=== PATIENT | male | born 1950 | race Caucasian/White ===

== ENCOUNTER 2025-10-12 10:54 | Observation (INO) | payer MEDICARE, SELFPAY ==
[2025-10-12] VITALS (7 sets, daily range): BP systolic 115–167; BP diastolic 60–94; PULSE 57–107; RESP 16–28; TEMP 34.2–36.8; O2SAT 93–100
--- NOTE | ~2025-10-12 | XR_ITS ---
Examination: XR chest 1V portable Clinical History: Altered mental status Comparison: None Technique: Portable AP Findings: Heart size enlarged. Lungs clear. No acute bony abnormality. IMPRESSION: 1. No definite acute cardiopulmonary findings given portable technique. Reviewed, dictated and finalized at location R. RDS MANAGER
--- NOTE | ~2025-10-12 | CT_ITS ---
EXAMINATION: CT chest, abdomen and pelvis with contrast: DATE: 10/12/2025. INDICATION: 4-year-old male with sepsis. TECHNIQUE: CT performed 100 cc of contrast and reviewed in multiple projections. COMPARISON: Chest x-ray dated 10/12/2025. FINDINGS: Postoperative changes of thoracotomy with coronary bypass. Cardiomegaly. Mild vascular congestion of lungs with patchy airspace opacity of left lung base. No pericardial effusion. Below the diaphragm, no focal lesions of liver and spleen. Gallbladder, pancreas and kidneys do not show acute findings. No evidence of small bowel obstruction. Normal size appendix. Diverticulosis of distal colon. No CT evidence of acute diverticulitis. Fecal impaction of the rectum. Severe calcific changes of abdominal aorta and iliac arteries, superior mesenteric artery and renal arteries. No acute findings of lumbar spine and pelvic bones. IMPRESSION: 1. Cardiomegaly with postoperative changes of coronary bypass. Mild congestion of lung bases with minimal bilateral pleural effusion. Small patchy airspace opacity of left lower lobe noted. Possible patchy of pneumonia versus pulmonary edema. 2. Below the diaphragm, no definite acute findings in the abdomen and pelvis. Other findings as mentioned above including severe calcific changes of abdominal aorta, iliac arteries and superior mesenteric and renal arteries. Reviewed, dictated and finalized at location T. TRONICS ASSEMBLER IMPRESSION: 1. Cardiomegaly with postoperative changes of coronary bypass. Mild congestion of lung bases with minimal bilateral pleural effusion. Small patchy airspace op acity of left lower lobe noted. Possible patchy of pneumonia versus pulmonary e jeffy. 2. Below the diaphragm, no definite acute findings in the abdomen and pelvis. O ther findings as mentioned above including severe calcific changes of abdominal aorta, iliac arteries and superior mesenteric and renal arteries.
--- NOTE | ~2025-10-12 | CT_ITS ---
CT HEAD NON-CONTRAST CT C-SPINE Clinical History: Fall Comparison: None Technique: Unenhanced axial images skull base to vertex. Coronal, sagittal reformats. Axial images thoracic inlet to skull base. Sagittal and coronal reformats. CT images acquired with automatic exposure control for dose reduction DLP: 681 mGy-cm Findings: Head: Age-related atrophy. Left parietal encephalomalacia. Right occipital encephalomalacia. Chronic white matter microvascular ischemic changes. Sulci, ventricles: Unremarkable. No intracerebral hemorrhage. No evidence acute territorial infarct. No mass effect, midline shift, intra-/extra-axial fluid collection. Bony calvarium intact. Visualized paranasal sinuses: Clear. Mastoid air cells: Clear. Posterior scalp contusion. C-spine: No acute fracture or listhesis. Straightening of normal cervical lordosis. Moderate degenerative changes. Disc disease C5-7. Prevertebral soft tissues within normal limits. Visualized lung apices: Clear. Visualized thyroid: Unremarkable. No enlarged cervical nodes. IMPRESSION: HEAD: 1. No acute intracranial findings. C-SPINE: 1. No acute fracture. Reviewed, dictated and finalized at location R. Y BUS DRIVER IMPRESSION: HEAD: 1. No acute intracranial findings. C-SPINE: 1. No acute fracture.
--- NOTE | 2025-10-12 11:19 | ED.AMS ---
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 PATIENT'S ROOMMATE TELLING ME THAT PATIENT WENT TO THE BAR LAST NIGHT, HAD QUITE A BIT OF ALCOHOL, AND CAME BACK HOME STUMBLING ALL OVER THE PLACE, UNSTEADY, MOM PLAYING, FOUND HIM ON THE FLOOR NEXT TO BED PROBABLY HE HAD A FALL OR HE TRY TO GET OUT OF BED AND WAS NOT ABLE TO WALK. AWAKE, DISORIENTED X4. 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 SHE IS TELLING ME THAT PATIENT HAVE HISTORY OF DIABETES HYPERTENSION HYPERLIPIDEMIA CABG FOR CORONARY STENTS ATRIAL FIBRILLATION ON ELIQUIS AND HE IS DNR. Related Data Allergies Allergy/AdvReac Type Severity Reaction Status Date / Time No Known Allergies Allergy Verified 10/12/25 16:49 Review of Systems Review of Systems: ROS unobtainable: Yes unobtainable due to medical condition and unobtainable due to mental status Exam Narrative: GENERAL APPEARANCE: WELL-DEVELOPED, WELL-NOURISHED DOES NOT LOOK IN PAIN OR DISTRESS SKIN: NORMAL COLOR HEAD: NORMOCEPHALIC, NONTRAUMATIC EYES: CLEAR CONJUNCTIVA ENT: OROPHARYNX NORMAL, EARS NORMAL, NOSE NORMAL NECK: SUPPLE, NONTENDER CHEST AND RESPIRATORY: AIRWAY PATENT, NO RESPIRATORY DISTRESS, NO ACCESSORY MUSCLE USE HEART: REGULAR RATE/RHYTHM ABDOMEN: SOFT, NONTENDER, NO ORGANOMEGALY, QUIET BOWEL SOUNDS VASCULAR: NORMAL PERIPHERAL PULSES, NORMAL CAPILLARY REFILL. MUSCULOSKELETAL: NORMAL RANGE OF MOTION, NONTENDER BACK NEUROLOGIC: ALERT, DISORIENTED X4 Course Vital Signs Vital signs: Vital Signs Temperature 34.2 C L 10/12/25 11:02 Pulse Rate 104 H 10/12/25 11:02 Respiratory Rate 19 10/12/25 11:02 Blood Pressure 167/94 H 10/12/25 11:02 Pulse Oximetry 95 10/12/25 11:02 Oxygen Delivery Room Air 10/12/25 11:02 Temperature 36.4 C L 10/12/25 15:40 Pulse Rate 85 10/12/25 15:40 Respiratory Rate 16 10/12/25 15:40 Blood Pressure 134/62 12/20/25 15:40 Pulse Oximetry 98 10/12/25 15:40 Oxygen Delivery Room Air 10/12/25 11:02 [facility] Narrative Medical decision making narrative: PATIENT CAME WITH ACUTE ALTERED MENTAL STATUS VITAL SIGNS SHOWING BLOOD PRESSURE 167/94, HEART RATE 104, TEMPERATURE 34.2? PHYSICAL EXAMINATION SHOWING PATIENT AWAKE, DISORIENTED X4, LETHARGIC. DIFFERENTIAL DIAGNOSIS: CVA, ELECTROLYTE IMBALANCE, DEHYDRATION, SEPSIS, ALCOHOLISM, SUBSTANCE ABUSE, ELECTROLYTE IMBALANCE, DEHYDRATION, CORONARY ARTERY DISEASE, PNEUMONIA, METABOLIC ENCEPHALOPATHY BLOOD WORKUP TODAY INCLUDES CBC, CMP, BLOOD CULTURE, COAGS, TROPONIN, LACTIC ACID SHOWED WBC 14.2, ANION GAP 18, BUN 30, LACTIC ACID 2.7, MAGNESIUM 1.3, OTHERWISE WITHIN NORMAL LIMIT URINALYSIS SHOWED NO EVIDENCE OF INFECTION URINE DRUG SCREEN NEGATIVE ALCOHOL LEVEL LESS THAN 10 IN THE ED PATIENT RECEIVED 1 L OF NORMAL SALINE, LEVAQUIN AND ZOSYN FOR POSSIBLE SEPSIS CHEST X-RAY SHOWED NO ACUTE ABNORMALITIES CT HEAD AND CT CERVICAL SPINE WITHOUT CONTRAST SHOWED NO ACUTE ABNORMALITIES CT CHEST ABDOMEN AND PELVIS WITH IV CONTRAST SHOWED POSSIBLE PNEUMONIA VERSUS PULMONARY EDEMA. Differential Diagnosis Differential Diagnosis: ABOVE Lab Data 10/12/25 11:27 10/12/25 11:27 Labs: Lab Results 10/12/25 10/12/25 10/12/25 Range/Units 11:00 11: 12:25 WBC 14.2 H (4.5-10.0) K/mm3 RBC 4.96 (4.6-6.20) M/mm3 Hgb 15.7 (14.0-18.0) g/dL Hct 46.7 (42.0-52.0) % MCV 94.2 (80-100) fl MCH 31.7 (26-34) pg MCHC 33.6 (32-36) g/dl RDW 12.3 (11.5-14.5) % Plt Count 268 (150-375) k/mm3 MPV 10.3 (7.4-10.4) fl Immature Gran % (Auto) 0.4 (0-0.5) % Neut % (Auto) 90.0 H (45.5-73.1) % Lymph % (Auto) 5.1 L (18.3-44.2) % [place] % (Auto) 4.4 (2.6-8.5) % Eos % (Auto) 0.0 (0-4.4) % Baso % (Auto) 0.1 L (0.2-1.2) % Lymph # (Auto) 0.73 L (0.9-3.2) K/mm3 [place] # (Auto) 0.6 (0.1-0.6) K/mm3 Eos # (Auto) 0.0 (0-0.3) K/mm3 Baso # (Auto) 0.0 (0.0-0.1) K/mm3 Abs Immat Gran (auto) 0.06 H (0.00-0.031) K/mm3 Absolute Neuts (auto) 12.8 H (1.3-6.7) K/mm3 Absolute Nucleated RBC 0.000 (0.0-0.012) K/mm3 Nucleated RBC % 0.0 (0.0-0.2) % PT 14.1 (11.1-14.7) Seconds INR 1.1 APTT 31.3 (22.3-36.8) Seconds Sodium 136 L (137-145) mmol/L Potassium 4.7 (3.4-5.0) mmol/L Chloride 97 L (98-107) mmol/L Carbon Dioxide 21 L (22-30) mmol/L Anion Gap 18 H (4-12) mmol/L BUN 30 H (9-20) mg/dL Creatinine 0.94 (0.7-1.3) mg/dL Estim Creat Clear Calc Not Reportable Estimated GFR > 60 (59 - ) Glucose 102 (65-110) mg/dL POC Capillary Glucose 96 (65-105) mg/dl Lactic Acid 2.7 H (0.7-2.0) mmol/L Calcium 9.3 (8.4-10.2) mg/dL Magnesium 1.3 L (1.6-2.3) mg/dL Total Bilirubin 0.7 (0.2-1.3) mg/dL AST 59 (17-59) U/L ALT 34 (6-50) U/L Alkaline Phosphatase 28 L (38-126) U/L Ammonia (9-30) umol/L C-Reactive Protein < 0.5 (<1.0) mg/dL Total Protein 7.8 (6.3-8.2) g/dL Albumin 4.7 (3.5-5.1) g/dL Urine Color Yellow (Yellow) Urine Appearance Clear (Clear) Urine pH 5.0 (5.0-9.0) Ur Specific [place] 1.014 (1.001-1.035) Urine Protein 2+ H (Negative) mg/dL Urine Glucose (UA) Negative (Negative) mg/dL Urine Ketones 1+ H (Negative) mg/dL Ur Blood (Man) Trace (Negative) Urine Nitrate Negative (Negative) Urine Bilirubin Negative (Negative) Urine Urobilinogen 0.2 (<2.0) mg/dL Add Ur Microanalysis Reviewed Leukocyte Esterase Rfl Negative (Negative) LINDSEY/UL Urine RBC 0-2 (0-2) /hpf Urine WBC 0-5 (0-3) /hpf Ur Squamous Epith Cells None seen (Few) /hpf Urine Bacteria None seen /hpf Urine Casts 6-10 Hyaline Casts Present (None) /lpf Urine Opiates Screen Negative (Negative) Urine Methadone Screen Negative (Negative) Ur Barbiturates Screen Negative (Negative) Ur Phencyclidine Scrn Negative (Negative) Ur Amphetamine Screen Negative (Negative) U Benzodiazepines Scrn Negative (Negative) Urine Cocaine Screen Negative (Negative) U Cannabinoids Screen Negative (Negative) Ethyl Alcohol < 10 (<10) mg/dL 10/12/25 10/12/25 Range/Units 12:33 14:42 WBC (4.5-10.0) K/mm3 RBC (4.6-6.20) M/mm3 Hgb (14.0-18.0) g/dL Hct (42.0-52.0) % MCV (80-100) fl MCH (26-34) pg MCHC (32-36) g/dl RDW (11.5-14.5) % Plt Count (150-375) k/mm3 MPV (7.4-10.4) fl Immature Gran % (Auto) (0-0.5) % Neut % (Auto) (45.5-73.1) % Lymph % (Auto) (18.3-44.2) % [place] % (Auto) (2.6-8.5) % Eos % (Auto) (0-4.4) % Baso % (Auto) (0.2-1.2) % Lymph # (Auto) (0.9-3.2) K/mm3 [place] # (Auto) (0.1-0.6) K/mm3 Eos # (Auto) (0-0.3) K/mm3 Baso # (Auto) (0.0-0.1) K/mm3 Abs Immat Gran (auto) (0.00-0.031) K/mm3 Absolute Neuts (auto) (1.3-6.7) K/mm3 Absolute Nucleated RBC (0.0-0.012) K/mm3 Nucleated RBC % (0.0-0.2) % PT (11.1-14.7) Seconds INR APTT (22.3-36.8) Seconds Sodium (137-145) mmol/L Potassium (3.4-5.0) mmol/L Chloride (98-107) mmol/L Carbon Dioxide (22-30) mmol/L Anion Gap (4-12) mmol/L BUN (9-20) mg/dL Creatinine (0.7-1.3) mg/dL Estim Creat Clear Calc Estimated GFR (59 - ) Glucose (65-110) mg/dL POC Capillary Glucose 116 H (65-105) mg/dl Lactic Acid (0.7-2.0) mmol/L Calcium (8.4-10.2) mg/dL Magnesium (1.6-2.3) mg/dL Total Bilirubin (0.2-1.3) mg/dL AST (17-59) U/L ALT (6-50) U/L Alkaline Phosphatase (38-126) U/L Ammonia < 9 L (9-30) umol/L C-Reactive Protein (<1.0) mg/dL Total Protein (6.3-8.2) g/dL Albumin (3.5-5.1) g/dL Urine Color (Yellow) Urine Appearance (Clear) Urine pH (5.0-9.0) Ur Specific [place] (1.001-1.035) Urine Protein (Negative) mg/dL Urine Glucose (UA) (Negative) mg/dL Urine Ketones (Negative) mg/dL Ur Blood (Man) (Negative) Urine Nitrate (Negative) Urine Bilirubin (Negative) Urine Urobilinogen (<2.0) mg/dL Add Ur Microanalysis Leukocyte Esterase Rfl (Negative) LINDSEY/UL Urine RBC (0-2) /hpf Urine WBC (0-3) /hpf Ur Squamous Epith Cells (Few) /hpf Urine Bacteria /hpf Urine Casts Hyaline Casts (None) /lpf Urine Opiates Screen (Negative) Urine Methadone Screen (Negative) Ur Barbiturates Screen (Negative) Ur Phencyclidine Scrn (Negative) Ur Amphetamine Screen (Negative) U Benzodiazepines Scrn (Negative) Urine Cocaine Screen (Negative) U Cannabinoids Screen (Negative) Ethyl Alcohol (<10) mg/dL ABG Data ABG results: 10/12/25 13:40 Puncture Site Left radial ABG pH 7.346 L ABG pCO2 29.0 L ABG pO2 90.5 ABG PO2/FiO2 Ratio 4.31 ABG HCO3 15.5 L ABG O2 Saturation 96.7 ABG O2 Content 19.5 ABG Base Excess -8.6 A-a Gradient 24.5 Oxyhemoglobin 95.4 Total Hemoglobin 14.5 O2 Delivery Device Room air O2 Liters/Min 0.0 FiO2 21 Imaging Data Radiologist's impression: ITS Impressions Cervical Spine CT 10/12/25 11:42 IMPRESSION: HEAD: 1. No acute intracranial findings. C-SPINE: 1. No acute fracture. Head CT 10/12/25 11:42 IMPRESSION: HEAD: 1. No acute intracranial findings. C-SPINE: 1. No acute fracture. Chest X-Ray 10/12/25 12:05 IMPRESSION: 1. No definite acute cardiopulmonary findings given portable technique. Chest/Abdomen/Pelvis CT 10/12/25 15:22 IMPRESSION: 1. Cardiomegaly with postoperative changes of coronary bypass. Mild congestion of lung bases with minimal bilateral pleural effusion. Small patchy airspace opacity of left lower lobe noted. Possible patchy of pneumonia versus pulmonary edema. 2. Below the diaphragm, no definite acute findings in the abdomen and pelvis. Other findings as mentioned above including severe calcific changes of abdominal aorta, iliac arteries and superior mesenteric and renal arteries. ECG Data EKG #1: Attestation: I personally reviewed and interpreted this ECG as follows: ECG completion date: 10/12/25 Interpretation: ATRIAL FIBRILLATION WITH RVR AT 101 BEATS PER MINUTE, RIGHT BUNDLE-BRANCH BLOCK, LEFT ANTERIOR FASCICULAR BLOCK, NO PREVIOUS EKG AVAILABLE FOR COMPARISON Critical Care Time Critical Care Time Critical Care Time: Yes Time Type: Intermittent Initial evaluation, discuss w/ involved parties, attempting to gather old records: 10 minutes Documenting medical record: 5 minutes Review of results (EKG's, labs, imaging): 5 minutes Serial repeat bedside evaluation: 10 minutes Discussing case with multiple memebers of the care team and consultants: 5 minutes Total Critical Care Time: 35 Discharge Plan Discharge Clinical Impression: Altered mental status, Pneumonia, Family history of atrial fibrillation Patient Disposition: Still a Patient Condition: Improved Patient Language: Romanian Follow-up/Referrals: Mihai,Chetan Turner MD [Primary Care Provider]
--- NOTE | 2025-10-12 11:20 | ECG_ITS ---
Test Date: 2025-10-12 12:23:35 Measurements Intervals [place] Rate: 101 P: 0 LA: 0 QRS: -85 QRSD: 149 T: 74 QT: 390 QTc: 506 Interpretive Statements ATRIAL FIBRILLATION WITH RAPID VENTRICULAR RESPONSE RIGHT BUNDLE BRANCH BLOCK LEFT ANTERIOR FASCICULAR BLOCK BASELINE ARTIFACT- I, II, III, AVL, V2, V4 ABNORMAL ECG No previous ECG available for comparison Electronically Signed On 10-12-2025 17:32:33 [employer] by Donnell Yoo D.O.
[2025-10-12] MEDS: SODIUM CHLORIDE 0.9% IV 1,000 ML 999 ML IV CONT (11:30)
--- NOTE | 2025-10-12 11:30 | PC.NURSE ---
Dr. Garg notified of critical pt.
[2025-10-12 11:37] LABS: Hematocrit 46.7 % (42.0-52.0); Hemoglobin 15.7 g/dL (14.0-18.0); Immature Granulocyte Percent A 0.4 % (0-0.5); Lymphocytes Absolute Auto 0.73 K/mm3 (0.9-3.2); Mean Corpuscular HGB Conc 33.6 g/dl (32-36); Mean Corpuscular Hemoglobin 31.7 pg (26-34); Mean Corpuscular Volume 94.2 fl (80-100); Nucleated Red Blood Cells Absolute Auto 0.000 K/mm3 (0.0-0.012); Nucleated Red Blood Cells Perc 0.0 % (0.0-0.2); Platelet Count Result 268 k/mm3 (150-375); Red Blood Count 4.96 M/mm3 (4.6-6.20); White Blood Count 14.2 K/mm3 (4.5-10.0)
--- NOTE | 2025-10-12 11:40 | PC.NURSE ---
Pt. taken to CT on a monitor with this RN at bedside. Pt. continues to be combative and confused. Breathing equal and unlabored.
[2025-10-12 11:48] LABS: INR 1.1; Prothrombin Time 14.1 Seconds (11.1-14.7)
[2025-10-12 11:49] LABS: Add Urine Microscopic? YES; Appearance Urine Clear (Clear); Glucose Urine UA Negative (Negative); Leukocyte Esterase Ur Negative LEU/UL (Negative); Need Manual Microscopic Reviewed; Nitrate Urine Negative (Negative); Partial Thromboplastin Time 31.3 Seconds (22.3-36.8); Specific Grav Ur 1.014 (1.001-1.035)
--- NOTE | 2025-10-12 11:50 | PC.NURSE ---
Pt. had BM in bed. Pt. cleaned with soap and water. Linen changed. Depend applied.
--- NOTE | 2025-10-12 12:00 | PC.NURSE ---
Claribel hugger placed on pt. at time of pt. arrival. Pt. not tolerating Claribel hugging and repeatedly pulled it off. Pt not redirecteable. Pt. tolerating warm blankets. Fluid bolus placed on warmer.
[2025-10-12 12:04] LABS: Alanine Aminotransferase 34 U/L (6-50); Albumin Level 4.7 g/dL (3.5-5.1); Alkaline Phosphatase 28 U/L (38-126); Anion Gap 18 mmol/L (4-12); Aspartate Amino Transferase 59 U/L (17-59); Bilirubin,Total 0.7 mg/dL (0.2-1.3); Blood Urea Nitrogen 30 mg/dL (9-20); CRP < 0.5 mg/dL (<1.0); Calcium 9.3 mg/dL (8.4-10.2); Carbon Dioxide 21 mmol/L (22-30); Chloride 97 mmol/L (98-107); Estimated Glomerular Filt Rate > 60; Glucose 102 mg/dL (65-110); Potassium 4.7 mmol/L (3.4-5.0); Sodium 136 mmol/L (137-145); Total Protein 7.8 g/dL (6.3-8.2)
--- OUTSIDE RECORDS SUMMARY | 2025-10-12 12:15 | XMS_ITS | Clinical Summary ---
Author Organization [facility] Address [address] [place] [address] Care Team Providers Care Produce Department Manager Name Role Phone Unavailable Primary Care Provider Unavailabl e Source Comments [facility],non-owned Affiliates and Associated Physician Practices is amultiple site organization consisting of ambulatory clinics and hospital sitesin [place], [place]. This disclosure is being madepursuant to the Care Everywhere program and may not contain all information available regarding this patient. 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 Gender Identity Not on file Sexual Orientation Not on file Plan of Treatment Health Maintenance Due Date Last Done Comments COLOGUARD (AGES 45-75) - COL ON CA SCREENING 1949 COLON MONITORING 1949 COLONOSCOPY - COLON CA SCREENING 1949 CT COLONOGRAPHY - COLON CA SCREENING 1949 Colorectal Cancer Screening 1949 FIT - COLON CA SCREENING 1949 FLEX SIG - COLON CA SCREENING 1949 LIPID TESTING 1949 HEPATITIS C SCREENING 10/19/1967 DTAP/TDAP/TD VACCINES (1 - Tdap) 1968 PNEUMOCOCCAL VACCINE 50+ (1 of 1 - PCV) 1999 ZOSTER VACCINE (1 of 2) 1999 Respiratory Syncytial Virus (RSV) Vaccine Pt: or over 60 yrs (1 - 1-dose 75+ series) 2024 DEPRESSION SCREENING 10/24/2024 COVID-19 VACCINE (1 - 2024-2 6 season) 2025 INFLUENZA VACCINE (#1) 2025 HEPATITIS B VACCINE Aged Out No longe r eligible based on patient's age to complete this topic HIB VACCINE Aged Out No longer eligi ble based on patient's age to complete this topic HPV VACCINE Aged Out No longer eligi ble based on patient's age to complete this topic MENINGOCOCCAL (Group B) VACC INE SHARED DECISION-MAKING Aged Out No longer eligibl e based on patient's age to complete this topic MENINGOCOCCAL GROUPS A/C/Y/W VACCINE Aged Out No longer eligible b ased on patient's age to complete this topic
--- OUTSIDE RECORDS SUMMARY | 2025-10-12 12:15 | XMS_ITS | Data Portability ---
Author Organization [place] - [facility] [employer], Main Office Address [address] [place] [address] Care Team Providers Care Talkback Host Name Role Phone MARILUZ AGUERO Primary Care Provider MADAN MCKEON Neurologist ERLINDA OHARA Printer Floor Covering Assistant INO WESTON Therapeutic Specialist Assessment Encounter Date Assessment Date Assessment LastModified by Organization Details LastModified Time 02/14/2024 02/14/2024 11/26/2022: Dr Mckinney A1C 8.9 B12/folate/TSH/F T4/CBC: WNL CMP: Gluc 169 06/07/2023: B6 108 A1C 6.4 Gluc 52, BUN 22 Urine micro alb 51.2 12/13/2023: A1C 8.2 Gluc 199, BUN 24 Urine micro alb 175.3 01/11/2024: Hep panel/GGT: Neg US liver: 02/07/2024: Neg Not available 02/13/2024 09:24:44 03/15/2024 03/15/2024 11/26/2022: Dr Mckinney A1C 8.9 B12/folate/TSH/F T4/CBC: WNL CMP: Gluc 169 06/07/2023: B6 108 A1C 6.4 Gluc 52, BUN 22 Urine micro alb 51.2 12/13/2023: A1C 8.2 Gluc 199, BUN 24 Urine micro alb 175.3 01/11/2024: Hep panel/GGT: Neg US liver: 02/07/2024: Neg 03/14/2024: A1c 7.2 Urine micro alb: 118.9H Gluc 120, BUN 26H,glob 2.4L HGB 13.1L Not available 03/15/2024 14:22:19 07/12/2024 07/12/2024 11/26/2022: Dr Mckinney A1C 8.9 B12/folate/TSH/F T4/CBC: WNL CMP: Gluc 169 06/07/2023: B6 108 A1C 6.4 Gluc 52, BUN 22 Urine micro alb 51.2 12/13/2023: A1C 8.2 Gluc 199, BUN 24 Urine micro alb 175.3 01/11/2024: Hep panel/GGT: Neg US liver: 02/07/2024: Neg 03/14/2024: A1c 7.2 Urine micro alb: 118.9H Gluc 120, BUN 26H,glob 2.4L HGB 13.1L 06/05/2024: A1C 7.1 BUN 24 45 minutes spent with the patient and his Kasandra, discussed his labs, especially his reluctance to take his insulin, chart updated Not available 07/12/2024 14:28:12 11/13/2024 11/13/2024 11/26/2022: Dr Mckinney A1C 8.9 B12/folate/TSH/F T4/CBC: WN CMP: Gluc 169 06/07/2023: B6 108 A1C 6.4 Gluc 52, BUN 22 Urine micro alb 51.2 12/13/2023: A1C 8.2 Gluc 199, BUN 24 Urine micro alb 175.3 01/11/2024: Hep panel/GGT: Neg liver: 02/07/2024: Neg 03/14/2024: A1c 7.2 Urine micro alb: 118.9H Gluc 120, BUN 26H,glob 2.4L HGB 13.1L 06/05/2024: A1C 7.1 BUN 24 10/09/2024: A1C 9.1 Urine micro alb 117.9H BUN 20H 45 minutes spent with the patient and his Kasandra, discussed his labs, especially his reluctance and non compliance to take his insulin, chart updated Not available 11/13/2024 14:40:48 11/28/2024 11/28/2024 Time spent with patient included: preparing to see patient by reviewing tests, obtaining and reviewing history, medical examination and evaluation, counseling and educating the patient, ordering medications and tests, documenting clinical information in EHR, independently interpreting results and communicating results to the patient for a total of 65 minutes. [email or web address] Not available 11/29/2024 09:15:32 Plan of Treatment Reminders Order Date Submit Date Provider Last Modified By Organization Details Last Modified Time Details Appointments Any 15 2025 01:30P M Mariluz ocampo MD Not available Not available Not available Lab alpha-1-a ntitrypsi n (aat) phenotype , serum 2024 025 [email or web address] 2 [facility] (Lab), [address] [place], [address], 05/28/2025 09:04:44 BNP (B-type natriuret ic peptide), serum or plasma 2024 [email or web address] [place] [address] (Lab), [address] [place], [address], 05/28/2025 09:04:44 ige, total, serum 2024 [email or web address] [place] [address] (Lab), [address] [place], [address], 05/28/2025 09:04:44 tb (M tuberculo sis), ifn-gamma enzo, blood 2024 [email or web address] [place] [address] (Lab), [address] [place], [address], 05/28/2025 09:04:[address] s 1+2+3+4, serum [email or web address] [place] [address] (Lab), [address] [place], [address], 05/28/2025 09:04:44 respirato ry allergen panel, [facility] A, serum [email or web address] [place] [address] (Lab), [address] [place], [address], 05/28/2025 09:04:45 respirato ry allergen panel - [facility] b [address] (Lab), [address] [place], [address], 05/28/2025 09:04:45 eosinophi ls, quant, blood [address] (Lab), [address] [place], [address], 05/28/2025 09:04:45 lipid panel, serum [address] [place] [address] (Lab), [address] [place], [address], 05/13/2025 09:36:41 CBC w/ auto diff [address] (Lab), [address] [place], [address], 05/13/2025 09:36:41 CMP, serum or plasma [address] [place] [address] (Lab), [address] [place], [address], 05/13/2025 09:36:42 TSH, serum or plasma [address] [place] [address] (Lab), [address] [place], [address], 05/13/2025 09:36:42 vitamin B12 + folate, serum or blood [address] [place] [address] (Lab), [address] [place], [address], 05/13/2025 09:36:42 glycohemo globin, total, blood [address] (Lab), [address] [place], [address], 05/13/2025 09:36:41 microalbu min, urine [address] (Lab), [address] [place], [address], 05/13/2025 09:36:41 lipid panel, serum 2023 024 [facility] (Lab), [address] [place], [address], 10/09/2024 12:45:32 CBC w/ auto diff 2023 024 [facility] (Lab), [address] [place], [address], 10/09/2024 12:30:24 CMP, serum or plasma 2023 024 [facility] (Lab), [address] [place], [address], 10/09/2024 12:45:52 TSH, serum or plasma 2023 024 [facility] (Lab), [address] [place], [address], 10/09/2024 13:16:42 vitamin B12 + folate, serum or blood [address] (Lab), [address] [place], [address], 01/09/2025 07:54:40 glycohemo globin, total, blood 2023 024 [facility] (Lab), [address] [place], [address], 10/09/2024 13:24:16 microalbu min, urine 2023 024 [facility] (Lab), [address] [place], [address], 10/09/2024 13:26:08 lipid panel, serum 2023 024 [facility] (Lab), [address] [place], [address], 06/05/2024 13:43:27 CBC w/ auto diff 2023 024 [facility] (Lab), [address] [place], [address], 06/05/2024 13:00:01 CMP, serum or plasma 2023 024 [facility] (Lab), [address] [place], [address], 06/05/2024 13:43:43 TSH, serum or plasma 2023 024 [facility] (Lab), [address] [place], [address], 06/05/2024 17:19:34 vitamin B12 + folate, serum or blood 2023 024 [facility] (Lab), [address] [place], [address], 06/06/2024 12:08:12 glycohemo globin, total, blood 2023 024 [facility] (Lab), [address] [place], [address], 06/05/2024 15:07:19 microalbu min, urine 2023 024 [facility] (Lab), [address] [place], [address], 06/05/2024 14:34:09 glycohemo globin, total, blood 2023 024 [facility] (Lab), [address] [place], [address], 03/14/2024 13:46:33 microalbu min, urine 2023 024 [facility] (Lab), [address] [place], [address], 03/14/2024 14:43:17 lipid panel, serum 2023 024 [facility] (Lab), [address] [place], [address], 03/14/2024 13:17:00 CBC w/ auto diff 2023 024 [facility] (Lab), [address] [place], [address], 03/14/2024 13:10:00 CMP, serum or plasma 2023 024 [facility] (Lab), [address] [place], [address], 03/14/2024 13:17:05 TSH, serum or plasma 2023 024 [facility] (Lab), [address] [place], [address], 03/14/2024 13:41:[address] referral - Please call patient to schedule. 2024 025 [email or web address] Mdaan Mckeon MD, [address] [place] [address] Dr [address] Yossi, [place], [address], 11/14/2024 17:58:43 nephrolog ist referral - Please call patient to schedule. 2024 025 [email or web address] Armando Peters MD (Nephrology, [address], [address], [place], [address], 01/02/2025 11:03:19 pulmonolo gist referral - Please call patient to schedule. 2024 025 [email or web address] Marilu Estefany Johnson BOOTH OPERATOR, [address], [address], [place], [address], 11/26/2024 15:31:43 podiatris t referral - Please call patient to schedule. 2024 025 [email or web address] Tyler Lopez DPM, [address], [address], [place], [address], 01/02/2025 11:03:19 endocrino logy referral - Please call patient to schedule. 2024 025 [email or web address] [place], [address] , [place], [address], 01/02/2025 11:03:19 cardiolog ist referral 2024 025 [email or web address] [place], [address], [address], [place], [address], 11/14/2024 17:58:[address] referral - Please call patient to schedule. 2023 024 [email or web address] Ja Cifuentes MD, [address] [facility], [address], [place], [address], 02/14/2025 09:24:59 nephrolog ist referral 2023 024 [email or web address] Armando Peters MD (Nephrology, [address], [address], [place], [address], 07/12/2024 16:52:05 pulmonolo gist referral - Please call patient to schedule. 2023 024 [email or web address] Tomasz Michael MD, [address], [place], [address], 11/15/2024 08:33:29 podiatris t referral - Please call patient to schedule. 2023 024 [email or web address] rBoderick Knox DPM, [address], [address], [place], [address], 11/15/2024 08:32:56 endocrino logy referral - Please call patient to schedule. 2023 024 Reagan Ivory MD, [address], [place], [address], 11/15/2024 08:33:13 cardiolog ist referral 2023 024 [email or web address] [place], [address] [address] , [place] [address], [address], 07/12/2024 16:43:[address] referral 2023 024 [email or web address] Ja Cifuentes MD, [address] [facility] [place] , [address], [place], [address], 09/11/2024 15:26:51 pulmonolo gist referral 2023 024 [email or web address] Tomasz Michael MD, [address] [place], [address], 09/11/2024 15:26:51 podiatris t referral 2023 024 [email or web address] Broderick Knox DPM, [address], [address], [place], [address], 09/11/2024 15:26:47 endocrino logy referral 2023 024 Reagan Ivory MD, [address], [place], [address], 09/11/2024 15:26:48 cardiolog ist referral 2023 024 [email or web address] [place], [address], [address], [place], [address], 09/11/2024 15:26:[address] referral 2023 024 [email or web address] Ja Cifuentes MD, [address] [facility], [facility] [address], [place], [address], 08/13/2024 11:55:49 podiatris t referral 2023 024 [email or web address] Broderick Knox DPM, [address] [facility] [address], [address], 08/13/2024 11:55:47 endocrino logy referral 2023 024 [email or web address] Reagan Ivory MD, [address], [place], [address], 08/13/2024 11:55:48 pulmonolo gist referral 2023 024 [email or web address] Tomasz Michael MD, [address] [place], [address], 09/11/2024 15:26:16 cardiolog ist referral 2023 024 [place], [address] [address], [address], [place], [address], 09/11/2024 15:26:15 Procedures None recorded. Surgeries None recorded. Imaging CT, chest, w/o contrast - Please call patient to schedule. 2024 025 [facility] ([facility]), [address] [place], [address], 11/21/2024 18:02:26 CT, chest, w/o contrast [address] ([facility]), [address] [place], [address], 07/12/2024 15:07:59 CT, chest, w/o contrast [address] ([facility]), [address] [place], [address], 08/14/2024 18:15:03 CT, chest, w/o contrast [address] ([facility]), [address] [place], [address], 08/14/2024 18:14:13 Medication Orders None recorded. Patient TargetsNo targets recorded. Patient Instructions Encounter Date Encounter Id Patient Instructions Last Modified By Organization Details Last Modified Time 11/28/2024 [id number] complete PFT w/ post bronchodilator spirometry* - Please call patient to schedule. IGOR [id number] per [facility]. [email or web address] [id number] Not available 01/02/2025 15:50:36 Reason for Referral Chicken Cleaner Referral for Type 2 diabetes mellitus without complication Referring Physician: Mariluz Aguero Internal Medicine, Encounter Date: 02/14/2024 Endocrinology Referral for T ype 2 diabetes mellitus without complication Referring Physician: Mariluz Aguero Internal Medicine, Encounter Date: 02/14/2024 Printer Floor Covering Assistant Referral for Co ronary arteriosclerosis Referring Physician: Mariluz Aguero Internal Medicine, Encounter Date: 02/14/2024 Neurologist Referral for Poo r short-term memory Referring Physician: Mariluz Aguero Internal Medicine, Encounter Date: 02/14/2024 Syrup Shed Supervisor Referral for D yspnea on exertion Referring Physician: Mariluz Aguero Internal Medicine, Encounter Date: 02/14/2024 Chicken Cleaner Referral for Type 2 diabetes mellitus without complication Referring Physician: Mariluz Aguero Internal Medicine, Encounter Date: 03/15/2024 Endocrinology Referral for T ype 2 diabetes mellitus without complication Referring Physician: Colby Lockett, Encounter Date: 03/15/2024 Printer Floor Covering Assistant Referral for Co ronary arteriosclerosis Referring Physician: Colby Lockett Medicine, Encounter Date: 03/15/2024 Neurologist Referral for Poo r short-term memory Referring Physician: Mariluz Aguero Internal Medicine, Encounter Date: 03/15/2024 Syrup Shed Supervisor Referral for D yspnea on exertion Referring Physician: Colby Lockett, Encounter Date: 03/15/2024 Chicken Cleaner Referral for Type 2 diabetes mellitus without complication Please call patient to schedule. Referring Physician: Colby Lockett, Encounter Date: 07/12/2024 Endocrinology Referral for T ype 2 diabetes mellitus without complication Please call patient to schedule. Referring Physician: Colby Lockett, Encounter Date: 07/12/2024 Printer Floor Covering Assistant Referral for Co ronary arteriosclerosis Referring Physician: Colby Lockett, Encounter Date: 07/12/2024 Neurologist Referral for Poo r short-term memory Please call patient to schedule. Referring Physician: Colby Lockett, Encounter Date: 07/12/2024 Syrup Shed Supervisor Referral for D yspnea on exertion Please call patient to schedule. Referring Physician: Colby Lockett, Encounter Date: 07/12/2024 Boat Cleaner Referral for Pr oteinuria Referring Physician: Colby Lockett, Encounter Date: 07/12/2024 Chicken Cleaner Referral for Type 2 diabetes mellitus without complication Please call patient to schedule. Referring Physician: Colby Lockett, Encounter Date: 11/13/2024 Endocrinology Referral for T ype 2 diabetes mellitus without complication Please call patient to schedule. Referring Physician: Mariluz Aguero Internal Medicine, Encounter Date: 11/13/2024 Printer Floor Covering Assistant Referral for Co ronary arteriosclerosis Referring Physician: Mariluz Aguero Internal Medicine, Encounter Date: 11/13/2024 Neurologist Referral for Poo r short-term memory Please call patient to schedule. Referring Physician: Mariluz Aguero Internal Medicine, Encounter Date: 11/13/2024 Syrup Shed Supervisor Referral for D yspnea on exertion Please call patient to schedule. Referring Physician: Mariluz Aguero Internal Medicine, Encounter Date: 11/13/2024 Boat Cleaner Referral for Pr oteinuria Please call patient to schedule. Referring Physician: Colby Lockett Medicine, Encounter Date: 11/13/2024 Results Created Date Observation Date Name Description Value Unit Range Abnormal Flag Note LastModifiedBy Organization Detail LastModifiedTime 03/14/20 24 03/14/2024 CBC/C OMPLE TE BLD COUNT W/DIF F white blood cells 9.3 x10'3 /uL 4.2-10 .8 Not Available [facility] (Lab) [address] [place], [address], 03/14/2024 13:10:00 03/14/20 24 03/14/2024 CBC/C OMPLE TE BLD COUNT W/DIF F red blood cells 4.19 x10'6 /uL 4.10-5 .80 Not Available [facility] (Lab) [address] [place], [address], 03/14/2024 13:10:00 03/14/20 24 03/14/2024 CBC/C OMPLE TE BLD COUNT W/DIF F hemoglobin 13.1 g/dL 13.2-1 7.0 low Not Available [facility] (Lab) [address] [place], [address], 03/14/2024 13:10:00 03/14/20 24 03/14/2024 CBC/C OMPLE TE BLD COUNT W/DIF F hematocrit 40.2 % 39.3-5 0.0 Not Available [facility] (Lab) [address] [place], [address], 03/14/2024 13:10:00 03/14/20 24 03/14/2024 CBC/C OMPLE TE BLD COUNT W/DIF F mean red cell volume 95.9 fL 80.0-9 7.0 Not Available [facility] (Lab) [address] [place], [address], 03/14/2024 13:10:00 03/14/20 24 03/14/2024 CBC/C OMPLE TE BLD COUNT W/DIF F mean red cell hemoglobin 31.3 pg 27.0-3 3.0 Not Available [facility] (Lab) [address] [place], [address], 03/14/2024 13:10:00 03/14/20 24 03/14/2024 CBC/C OMPLE TE BLD COUNT W/DIF F mean RBC HGB concentratio n 32.6 g/dL 31.0-3 6.0 Not Available [facility] (Lab) [address] [place], [address], 03/14/2024 13:10:00 03/14/20 24 03/14/2024 CBC/C OMPLE TE BLD COUNT W/DIF F red cell distribution width 13.2 % 11.8-1 5.5 Not Available [facility] (Lab) [address] [place], [address], 03/14/2024 13:10:00 03/14/20 24 03/14/2024 CBC/C OMPLE TE BLD COUNT W/DIF F platelets 263 x10'3 /uL 150-40 0 Not Available [facility] (Lab) [address] [place], [address], 03/14/2024 13:10:00 03/14/20 24 03/14/2024 CBC/C OMPLE TE BLD COUNT W/DIF F mean platelet volume 11.2 fL 9.0-12 .4 Not Available [facility] (Lab) [address] [place], [address], 03/14/2024 13:10:00 03/14/20 24 03/14/2024 CBC/C OMPLE TE BLD COUNT W/DIF F neutrophils 67.4 % 39.0-7 2.0 Not Available [facility] (Lab) [address] [place], [address], 03/14/2024 13:10:00 03/14/20 24 03/14/2024 CBC/C OMPLE TE BLD COUNT W/DIF F lymphocytes 16.5 % 16.0-4 7.0 Not Available [facility] (Lab) [address] [place], [address], 03/14/2024 13:10:00 03/14/20 24 03/14/2024 CBC/C OMPLE TE BLD COUNT W/DIF F monocytes 11.6 % 5.0-12 .0 Not Available [facility] (Lab) [address] [place], [address], 03/14/2024 13:10:00 03/14/20 24 03/14/2024 CBC/C OMPLE TE BLD COUNT W/DIF F eosinophils 3.8 % 1.0-7. 0 Not Available [facility] (Lab) [address] [place], [address], 03/14/2024 13:10:00 03/14/20 24 03/14/2024 CBC/C OMPLE TE BLD COUNT W/DIF F basophils 0.4 % 0.0-2. 0 Not Available [facility] (Lab) [address] [place], [address], 03/14/2024 13:10:00 03/14/20 24 03/14/2024 CBC/C OMPLE TE BLD COUNT W/DIF F immature granulocytes 0.3 % 0.00-0 .50 Not Available [facility] (Lab) [address] [place], [address], 03/14/2024 13:10:00 03/14/20 24 03/14/2024 CBC/C OMPLE TE BLD COUNT W/DIF F neutrophils, absolute count 6.26 x10'3 /uL 1.5-8. 0 Not Available [facility] (Lab) [address] [place], [address], 03/14/2024 13:10:00 03/14/20 24 03/14/2024 CBC/C OMPLE TE BLD COUNT W/DIF F lymphocytes, absolute count 1.53 x10'3 /uL 1.07-3 .43 Not Available [facility] (Lab) [address] [place], [address], 03/14/2024 13:10:00 03/14/20 24 03/14/2024 CBC/C OMPLE TE BLD COUNT W/DIF F monocytes, absolute count 1.08 x10'3 /uL 0.29-0 .99 high Not Available [facility] (Lab) [address] [place], [address], 03/14/2024 13:10:00 03/14/20 24 03/14/2024 CBC/C OMPLE TE BLD COUNT W/DIF F eosinophils, absolute count 0.35 x10'3 /uL 0.02-0 .53 Not Available [facility] (Lab) [address] [place], [address], 03/14/2024 13:10:00 03/14/20 24 03/14/2024 CBC/C OMPLE TE BLD COUNT W/DIF F basophils, absolute count 0.04 x10'3 /uL 0.01-0 .08 Not Available [facility] (Lab) [address] [place], [address], 03/14/2024 13:10:00 03/14/20 24 03/14/2024 CBC/C OMPLE TE BLD COUNT W/DIF F immature granulocytes ,absolute 0.03 x10'3 /uL 0.00-0 .05 Not Available [facility] (Lab) [address] [place], [address], 03/14/2024 13:10:00 03/14/20 24 03/14/2024 CBC/C OMPLE TE BLD COUNT W/DIF F nucleated red blood cells 0.0 % -0 Not Available [facility] (Lab) [address] [place], [address], 03/14/2024 13:10:00 03/14/20 24 03/14/2024 CBC/C OMPLE TE BLD COUNT W/DIF F NRBC# 0.00 x10'3 /uL Not Available [facility] (Lab) [address] [place], [address], 03/14/2024 13:10:00 03/14/20 24 03/14/2024 LIPID PANEL cholesterol 135 mg/dL 140-19 9 low NIH HENRY NSUS RECOM MENDA TION FOR GONZALEZ STERO L: ADULT CHILD LOW RISK: <200 <170 BORDE RLINE : <200- 239 ----- HIGH RISK: >240 >200 Not Available [facility] (Lab) [address] [place], [address], 03/14/2024 13:17:00 03/14/20 24 03/14/2024 LIPID PANEL triglyceride s 100 mg/dL 0-150 NIH HENRY NSUS REPOR T RECOM MENDA TION FOR TRIGL YCERI JOSE A: ADULT CHILD LOW RISK: <150 ----- BODER LINE: 150-1 99 ----- HIGH RISK: >200 ----- Not Available [facility] (Lab) [address] [place], [address], 03/14/2024 13:17:00 03/14/20 24 03/14/2024 LIPID PANEL HDL cholesterol 54 mg/dL 40- Not Available [facility] (Lab) [address] [place], [address], 03/14/2024 13:17:00 03/14/20 24 03/14/2024 LIPID PANEL LDL cholesterol, calculated 61 mg/dL 0-130 NIH HENRY NSUS REPOR T RECOM MENDA TIONS FOR LDL: ADULT CHILD LOW RISK <130 <110 (OPTI MAL LDL) <100 ----- BORDE RLINE : 130-1 59 ----- HIGH RISK: >160 >130 A TRIGL YCERI DE RESUL T >400 INVAL IDATE S THE CALCU LATIO N FOR LDL FRACT IONAT ION - THE LDL RESUL T WILL NOT BE REPOR ISAAC. Not Available [facility] (Lab) [address] [place], [address], 03/14/2024 13:17:00 03/14/20 24 03/14/2024 COMP MET PANEL /LIVE R sodium 138 mmol/ L 137-14 5 Not Available [facility] (Lab) [address] [place], [address], 03/14/2024 13:17:05 03/14/20 24 03/14/2024 COMP MET PANEL /LIVE R potassium 4.5 mmol/ L 3.5-5. 1 Not Available [facility] (Lab) [address] [place], [address], 03/14/2024 13:17:05 03/14/20 24 03/14/2024 COMP MET PANEL /LIVE R chloride 103 mmol/ L 98-107 Not Available [facility] (Lab) [address] [place], [address], 03/14/2024 13:17:05 03/14/20 24 03/14/2024 COMP MET PANEL /LIVE R carbon dioxide 27 mmol/ L 22-30 Not Available [facility] (Lab) [address] [place], [address], 03/14/2024 13:17:05 03/14/20 24 03/14/2024 COMP MET PANEL /LIVE R anion gap 12.5 mmol/ L 14-22 low Not Available [facility] (Lab) [address] [place], [address], 03/14/2024 13:17:05 03/14/20 24 03/14/2024 COMP MET PANEL /LIVE R glucose 120 mg/dL 70-99 high Not Available [facility] (Lab) [address] [place], [address], 03/14/2024 13:17:05 03/14/20 24 03/14/2024 COMP MET PANEL /LIVE R BUN 26 mg/dL 8-19 high Not Available [facility] (Lab) [address] [place], [address], 03/14/2024 13:17:05 03/14/20 24 03/14/2024 COMP MET PANEL /LIVE R creatinine 1.02 mg/dL 0.66-1 .25 Not Available [facility] (Lab) [address] [place], [address], 03/14/2024 13:17:05 03/14/20 24 03/14/2024 COMP MET PANEL /LIVE R GFR >60 Refer ence Range : [place] ge GFR Healt hy Adult : >60 mL/mi n/1.7 3 m2 Chron ic Kidne y Disea se: 15-60 mL/mi n/1.7 3 m2 Kidne y Failu re: <15/m L/min /1.73 m2 www.n iddk. nih.g ov The MDRD study equat ion has not been valid ated in child gabby <18 years of age; pregn ant women ; the elder ly >85 years of age; or in some racia l or ethni c subgr oups, such as Hispa nics. Outsi de the valid ated vonnie eters , estim ated GFR is less accur ate, requi ring clini justyn judgm ent on a case- by-ca se basis . Clini justyn inter preta tion for other races and ages must be made by the clini mohamud. The MDRD study equat ion has not been valid ated for the evalu ation of serum creat inine relat ed to nutri manav l statu s or medic ation usage . For perso ns <18 years of age, a pedia tric GFR calcu lator is avail able on the [facility] websi te: https ://jenna w.kid carol.o rg/pr ofess ional s/kdo qi/gf r_cal culat or Not Available [facility] (Lab) [address] [place], [address], 03/14/2024 13:17:05 03/14/20 24 03/14/2024 COMP MET PANEL /LIVE R alkaline phosphatase <20 U/L 38-126 low Not Available [facility] (Lab) [address] [place], [address], 03/14/2024 13:17:05 03/14/20 24 03/14/2024 COMP MET PANEL /LIVE R alanine aminotransfe rase 26 U/L 0-50 Not Available [facility] (Lab) [address] [place], [address], 03/14/2024 13:17:05 03/14/20 24 03/14/2024 COMP MET PANEL /LIVE R aspartate aminotransfe rase 28 U/L 15-46 Not Available [facility] (Lab) [address] [place], [address], 03/14/2024 13:17:05 03/14/20 24 03/14/2024 COMP MET PANEL /LIVE R bilirubin, total 0.50 mg/dL 0.20-1 .30 Not Available [facility] (Lab) [address] [place], [address], 03/14/2024 13:17:05 03/14/20 24 03/14/2024 COMP MET PANEL /LIVE R bilirubin, conjugated (direct) 0.00 mg/dL 0.00-0 .30 Not Available [facility] (Lab) [address] [place], [address], 03/14/2024 13:17:05 03/14/20 24 03/14/2024 COMP MET PANEL /LIVE R biliurubin,u ncong. (indirect) 0.30 mg/dL 0.00-1 .1 Not Available [facility] (Lab) [address] [place], [address], 03/14/2024 13:17:05 03/14/20 24 03/14/2024 COMP MET PANEL /LIVE R calcium 9.8 mg/dL 8.4-10 .2 Not Available [facility] (Lab) [address] [place], [place], [address], 03/14/2024 13:17:05 03/14/20 24 03/14/2024 COMP MET PANEL /LIVE R total protein 6.8 g/dL 6.3-8. 2 Not Available [facility] (Lab) [address] [place], [address], 03/14/2024 13:17:05 03/14/20 24 03/14/2024 COMP MET PANEL /LIVE R albumin 4.4 g/dL 3.0-4. 4 Not Available [facility] (Lab) [address] [place], [address], 03/14/2024 13:17:05 03/14/20 24 03/14/2024 COMP MET PANEL /LIVE R globulin 2.4 g/dL 2.6-4. 2 low Not Available [facility] (Lab) [address] [place], [address], 03/14/2024 13:17:05 03/14/20 24 03/14/2024 COMP MET PANEL /LIVE R A/G ratio 1.8 ratio 1.0-2. 0 Not Available [facility] (Lab) [address] [place], [address], 03/14/2024 13:17:05 03/14/20 24 03/14/2024 TSH W/REF ARACELI FT4 TSH with reflex free T4 3.330 uIU/m L 0.465- 4.680 Not Available [facility] (Lab) [address] [place], [address], 03/14/2024 13:41:23 03/14/20 24 03/14/2024 HEMOG LOBIN A1C HA1C 7.2 % 4.0-6. 0 high Diabe adja Scree pilar Crite severo: <5.7% Consi stent with absen ce of diabe daja 5.7-6 .4% Consi stent with incre ased risk for diabe daja (pred iabet es) >OR=6 .5% Consi stent with diabe daja REFER ENCE: Diabe daja Care 2016, 39(Patterson ppl.1 ):s13 -s22 Not Available [facility] (Lab) [address] [place], [address], 03/14/2024 13:46:33 03/14/20 24 03/14/2024 MICRO ALBUM IN RANDO M URINE microalbumin , urine 118.9 mg/L 0.0-16 .6 high Not Available [facility] (Lab) [address] [place], [address], 03/14/2024 14:43:17 06/05/20 24 06/05/2024 CBC/C OMPLE TE BLD COUNT W/DIF F white blood cells 8.4 x10'3 /uL 4.2-10 .8 Not Available [facility] (Lab) [address] [place], [address], 06/05/2024 13:00:01 06/05/20 24 06/05/2024 CBC/C OMPLE TE BLD COUNT W/DIF F red blood cells 4.37 x10'6 /uL 4.10-5 .80 Not Available [facility] [address] [facility] [place] [place], [address], 06/05/2024 13:00:01 06/05/20 24 06/05/2024 CBC/C OMPLE TE BLD COUNT W/DIF F hemoglobin 14.0 g/dL 13.2-1 7.0 Not Available [facility] (Lab) [address] [place], [address], 06/05/2024 13:00:01 06/05/20 24 06/05/2024 CBC/C OMPLE TE BLD COUNT W/DIF F hematocrit 42.3 % 39.3-5 0.0 Not Available [facility] (Lab) [address] [place], [address], 06/05/2024 13:00:01 06/05/20 24 06/05/2024 CBC/C OMPLE TE BLD COUNT W/DIF F mean red cell volume 96.8 fL 80.0-9 7.0 Not Available [facility] (Lab) [address] [place], [address], 06/05/2024 13:00:01 06/05/20 24 06/05/2024 CBC/C OMPLE TE BLD COUNT W/DIF F mean red cell hemoglobin 32.0 pg 27.0-3 3.0 Not Available [facility] (Lab) [address] [place], [address], 06/05/2024 13:00:01 06/05/20 24 06/05/2024 CBC/C OMPLE TE BLD COUNT W/DIF F mean RBC HGB concentratio n 33.1 g/dL 31.0-3 6.0 Not Available [facility] (Lab) [address] [place], [address], 06/05/2024 13:00:01 06/05/20 24 06/05/2024 CBC/C OMPLE TE BLD COUNT W/DIF F red cell distribution width 13.3 % 11.8-1 5.5 Not Available [facility] (Lab) [address] [place], [address], 06/05/2024 13:00:01 06/05/2006/05/2024 CBC/C OMPLE TE BLD COUNT W/DIF F platelets 248 x10'3 /uL 150-40 0 Not Available [facility] (Lab) [address] [place], [address], 06/05/2024 13:00:01 06/05/20 24 06/05/2024 CBC/C OMPLE TE BLD COUNT W/DIF F mean platelet volume 11.3 fL 9.0-12 .4 Not Available [facility] (Lab) [address] [place], [address], 06/05/2024 13:00:01 06/05/20 24 06/05/2024 CBC/C OMPLE TE BLD COUNT W/DIF F neutrophils 70.5 % 39.0-7 2.0 Not Available [facility] (Lab) [address] [place], [address], 06/05/2024 13:00:01 06/05/2006/05/2024 CBC/C OMPLE TE BLD COUNT W/DIF F lymphocytes 14.4 % 16.0-4 7.0 low Not Available [facility] (Lab) [address] [place], [address], 06/05/2024 13:00:01 06/05/2006/05/2024 CBC/C OMPLE TE BLD COUNT W/DIF F monocytes 11.1 % 5.0-12 .0 Not Available [facility] (Lab) [address] [place], [address], 06/05/2024 13:00:01 06/05/2006/05/2024 CBC/C OMPLE TE BLD COUNT W/DIF F eosinophils 3.1 % 1.0-7. 0 Not Available [facility] (Lab) [address] [place], [address], 06/05/2024 13:00:01 06/05/2006/05/2024 CBC/C OMPLE TE BLD COUNT W/DIF F basophils 0.4 % 0.0-2. 0 Not Available [facility] (Lab) [address] [place], [address], 06/05/2024 13:00:01 06/05/2006/05/2024 CBC/C OMPLE TE BLD COUNT W/DIF F immature granulocytes 0.5 % 0.00-0 .50 Not Available [facility] (Lab) [address] [place], [address], 06/05/2024 13:00:01 06/05/20 24 06/05/2024 CBC/C OMPLE TE BLD COUNT W/DIF F neutrophils, absolute count 5.91 x10'3 /uL 1.5-8. 0 Not Available [facility] (Lab) [address] [place], [address], 06/05/2024 13:00:01 06/05/2006/05/2024 CBC/C OMPLE TE BLD COUNT W/DIF F lymphocytes, absolute count 1.21 x10'3 /uL 1.07-3 .43 Not Available [facility] (Lab) [address] [place], [address], 06/05/2024 13:00:01 06/05/20 24 06/05/2024 CBC/C OMPLE TE BLD COUNT W/DIF F monocytes, absolute count 0.93 x10'3 /uL 0.29-0 .99 Not Available [facility] (Lab) [address] [place], [address], 06/05/2024 13:00:01 06/05/20 24 06/05/2024 CBC/C OMPLE TE BLD COUNT W/DIF F eosinophils, absolute count 0.26 x10'3 /uL 0.02-0 .53 Not Available [facility] (Lab) [address] [facility] [facility] [place], [address], 06/05/2024 13:00:01 06/05/20 24 06/05/2024 CBC/C OMPLE TE BLD COUNT W/DIF F basophils, absolute count 0.03 x10'3 /uL 0.01-0 .08 Not Available [facility] (Lab) [address] [place], [address], 06/05/2024 13:00:01 06/05/20 24 06/05/2024 CBC/C OMPLE TE BLD COUNT W/DIF F immature granulocytes ,absolute 0.04 x10'3 /uL 0.00-0 .05 Not Available [facility] (Lab) [address] [place], [address], 06/05/2024 13:00:01 06/05/20 24 06/05/2024 CBC/C OMPLE TE BLD COUNT W/DIF F nucleated red blood cells 0.0 % -0 Not Available [facility] (Lab) [address] [place], [address], 06/05/2024 13:00:01 06/05/20 24 06/05/2024 CBC/C OMPLE TE BLD COUNT W/DIF F NRBC# 0.00 x10'3 /uL Not Available [facility] (Lab) [address] [place], [address], 06/05/2024 13:00:01 06/05/20 24 06/05/2024 LIPID PANEL cholesterol 119 mg/dL 140-19 9 low NIH HENRY NSUS RECOM MENDA TION FOR GONZALEZ STERO L: ADULT CHILD LOW RISK: <200 <170 BORDE RLINE : <200- 239 ----- HIGH RISK: >240 >200 Not Available [facility] (Lab) [address] [place], [address], 06/05/2024 13:43:27 06/05/20 24 06/05/2024 LIPID PANEL triglyceride s 75 mg/dL 0-150 NIH HENRY NSUS REPOR T RECOM MENDA TION FOR TRIGL YCERI JOSE A: ADULT CHILD LOW RISK: <150 ----- BODER LINE: 150-1 99 ----- HIGH RISK: >200 ----- Not Available [facility] (Lab) [address] [place], [address], 06/05/2024 13:43:27 06/05/20 24 06/05/2024 LIPID PANEL HDL cholesterol 50 mg/dL 40- Not Available [facility] (Lab) [address] [place], [address], 06/05/2024 13:43:27 06/05/20 24 06/05/2024 LIPID PANEL LDL cholesterol, calculated 54 mg/dL 0-130 NIH HENRY NSUS REPOR T RECOM MENDA TIONS FOR LDL: ADULT CHILD LOW RISK <130 <110 (OPTI MAL LDL) <100 ----- BORDE RLINE : 130-1 59 ----- HIGH RISK: >160 >130 A TRIGL YCERI DE RESUL T >400 INVAL IDATE S THE CALCU LATIO N FOR LDL FRACT IONAT ION - THE LDL RESUL T WILL NOT BE REPOR ISAAC. Not Available [facility] (Lab) [address] [place], [address], 06/05/2024 13:43:27 06/05/20 24 06/05/2024 COMPR EHENS MAGGIE METAB OLIC PANEL sodium 137 mmol/ L 137-14 5 Not Available [facility] (Lab) [address] [place], [address], 06/05/2024 13:43:42 06/05/20 24 06/05/2024 COMPR EHENS MAGGIE METAB OLIC PANEL potassium 4.1 mmol/ L 3.5-5. 1 Not Available [facility] (Lab) [address] [place], [address], 06/05/2024 13:43:42 06/05/20 24 06/05/2024 COMPR EHENS MAGGIE METAB OLIC PANEL chloride 106 mmol/ L 98-107 Not Available [facility] (Lab) [address] [place], [address], 06/05/2024 13:43:42 06/05/20 24 06/05/2024 COMPR EHENS MAGGIE METAB OLIC PANEL carbon dioxide 27 mmol/ L 22-30 Not Available [facility] (Lab) [address] [place], [address], 06/05/2024 13:43:42 06/05/20 24 06/05/2024 COMPR EHENS MAGGIE METAB OLIC PANEL anion gap 8.1 mmol/ L 14-22 low Not Available [facility] (Lab) [address] [place], [address], 06/05/2024 13:43:42 06/05/20 24 06/05/2024 COMPR EHENS MAGGIE METAB OLIC PANEL glucose 77 mg/dL 70-99 Not Available [facility] (Lab) [address] [place], [address], 06/05/2024 13:43:42 06/05/20 24 06/05/2024 COMPR EHENS MAGGIE METAB OLIC PANEL BUN 24 mg/dL 8-19 high Not Available [facility] (Lab) [address] [place], [address], 06/05/2024 13:43:42 06/05/20 24 06/05/2024 COMPR EHENS MAGGIE METAB OLIC PANEL creatinine 0.99 mg/dL 0.66-1 .25 Not Available [facility] (Lab) [address] [place], [address], 06/05/2024 13:43:42 06/05/20 24 06/05/2024 COMPR EHENS MAGGIE METAB OLIC PANEL GFR >60 Refer ence Range : [place] ge GFR Healt hy Adult : >60 mL/mi n/1.7 3 m2 Chron ic Kidne y Disea se: 15-60 mL/mi n/1.7 3 m2 Kidne y Failu re: <15/m L/min /1.73 m2 www.n iddk. nih.g ov The MDRD study equat ion has not been valid ated in child gabby <18 years of age; pregn ant women ; the elder ly >85 years of age; or in some racia l or ethni c subgr oups, such as Hisne nics. Outsi de the valid ated vonnie eters , estim ated GFR is less accur ate, requi ring clini justyn judgm ent on a case- by-ca se basis . Clini justyn inter preta tion for other races and ages must be made by the clini mohamud. The MDRD study equat ion has not been valid ated for the evalu ation of serum creat inine relat ed to nutri manav l statu s or medic ation usage . For perso ns <18 years of age, a pedia tric GFR calcu lator is avail able on the [facility] websi te: https ://jenna w.kid carol.o rg/pr ofess ional s/kdo qi/gf r_cal culat or Not Available [facility] (Lab) [address] [place], [address], 06/05/2024 13:43:42 06/05/20 24 06/05/2024 COMPR EHENS MAGGIE METAB OLIC PANEL alkaline phosphatase <20 U/L 38-126 low Not Available [facility] (Lab) [address] [place], [address], 06/05/2024 13:43:42 06/05/20 24 06/05/2024 COMPR EHENS MAGGIE METAB OLIC PANEL alanine aminotransfe rase 25 U/L 0-50 Not Available [facility] (Lab) [address] [place], [address], 06/05/2024 13:43:42 06/05/20 24 06/05/2024 COMPR EHENS MAGGIE METAB OLIC PANEL aspartate aminotransfe rase 26 U/L 15-46 Not Available [facility] (Lab) [address] [place], [address], 06/05/2024 13:43:42 06/05/20 24 06/05/2024 COMPR EHENS MAGGIE METAB OLIC PANEL bilirubin, total 0.60 mg/dL 0.20-1 .30 Not Available [facility] (Lab) [address] [place], [address], 06/05/2024 13:43:42 06/05/20 24 06/05/2024 COMPR EHENS MAGGIE METAB OLIC PANEL calcium 9.7 mg/dL 8.4-10 .2 Not Available [facility] (Lab) [address] [place], [address], 06/05/2024 13:43:42 06/05/20 24 06/05/2024 COMPR EHENS MAGGIE METAB OLIC PANEL total protein 7.0 g/dL 6.3-8. 2 Not Available [facility] (Lab) [address] [place], [address], 06/05/2024 13:43:42 06/05/20 24 06/05/2024 COMPR EHENS MAGGIE METAB OLIC PANEL albumin 4.3 g/dL 3.0-4. 4 Not Available [facility] (Lab) [address] [place], [address], 06/05/2024 13:43:42 06/05/20 24 06/05/2024 COMPR EHENS MAGGIE METAB OLIC PANEL globulin 2.7 g/dL 2.6-4. 2 Not Available [facility] (Lab) [address] [place], [address], 06/05/2024 13:43:42 06/05/20 24 06/05/2024 COMPR EHENS MAGGIE METAB OLIC PANEL A/G ratio 1.6 ratio 1.0-2. 0 Not Available [facility] (Lab) [address] [place], [address], 06/05/2024 13:43:42 06/05/20 24 06/05/2024 VITAM IN B12 (ADRIANA BOO ) vb12 489 pg/mL 239-93 1 Not Available [facility] (Lab) [address] [place], [address], 06/05/2024 14:29:27 06/05/20 24 06/05/2024 FOLAT E, SERUM /PLAS MA folate >20.0 NG/mL 2.76-2 0.0 Not Available [facility] (Lab) [address] [place], [address], 06/05/2024 14:29:32 06/05/20 24 06/05/2024 MICRO ALBUM IN RANDO M URINE microalbumin , urine 66.3 mg/L 0.0-16 .6 high Not Available [facility] (Lab) [address] [place], [address], 06/05/2024 14:34:09 06/05/20 24 06/05/2024 HEMOG LOBIN A1C HA1C 7.1 % 4.0-6. 0 high Diabe daja Scree pilar Crite severo: <5.7% Consi stent with absen ce of diabe daja 5.7-6 .4% Consi stent with incre ased risk for diabe daja (pred iabet es) >OR=6 .5% Consi stent with diabe daja REFER ENCE: Diabe daja Care 2016, 39(Patterson ppl.1 ):s13 -s22 Not Available [facility] (Lab) [address] [place], [address], 06/05/2024 15:07:19 06/05/20 24 06/05/2024 TSH W/REF ARACELI FT4 TSH with reflex free T4 2.900 uIU/m L 0.465- 4.680 Not Available [facility] (Lab) [address] [place], [address], 06/05/2024 17:19:34 02/07/20 24 02/07/2024 US, abdom en, limit ed [facility] [address] [place] [address] Patien t Name: MIKE HUNTER Access ion #: [id number] Sex: M : 1949 8 Dictat ed By: Kevin Sheriff Attend ing Physic bruna: ROMARIO SCHULTZ Orderi ng Physic bruna: ROMARIO SCHULTZ Exam Date: 2023 09:43 AM Exam Name: US ABDOME N SINGLE ORGAN Admitt ing Diagno sis(es ): INDICA TION: Pain. TECHNI QUE: Multip le real-t pily sonogr aphic images were obtain ed of the right upper quadra nt. COMPAR SIMI: Prior exam dated. FINDIN GS: The liver demons trates hetero genous echote xture withou t focal mass lesion s. There is no intrah epatic or extrah epatic ductal dilata tion. The common duct measur es 1.8 mm. The gallbl adder is withou t eviden ce of stone or sludge . The gallbl adder wall measur es 2 mm and is within normal limits . The right kidney measur es 12 cm. The right kidney is normal in contou r, size, and shape. The echoge nicity is normal . There is no hydron ephros is. 1.1 right renal cyst. The pancre as is not well visual ized due to overly ing bowel gas. IMPRES KIRIT: 1. Unrema rkable right upper quadra nt sonogr am. Electr onical ly Signed by: Kevin Sheriff at 2023 12:38: 26 PM Page 1 [email or web address] [facility] (Imaging) [address] [place], [address], 07/12/2024 15:20:32 02/07/20 24 02/07/2024 US, liver No observ ation record ed. [email or web address] [facility] [address] [place], [address], 07/12/2024 15:20:32 11/21/19 25 11/21/2024 CT, chest , w/o contr ast [facility] [address] [place] [address] Patien t Name: MIKE HUNTER ion #: [id number] Sex: M : 1949 0 Dictat ed By: Supa dickens Attend ing Physic bruna: ROMARIO SCHULTZ [facility] Physic bruna: ROMARIO SCHULTZ Exam Date: 2024 12:32 PM Exam Name: CT CHEST WO Admitt ing Diagno sis(es ): EXAM: CT CHEST WO HISTOR Y: sob 74-yea r-old male with shortn ess of breath , former smoker . COMPAR SIMI: None TECHNI QUE: Helica l CT images of the chest were perfor med withou t contra st. Psychiatric al and vasquez l reform atted images were obtain ed. This CT exam was perfor med using one or more of the follow ing dose reduct ion techni ques: Automa isaac exposu re contro l, adjust ment of the mA and/or kV accord ing to patien t size, or use of iterat maggie recons tructi on techni que. FINDIN GS: There are modera te right and small left pleura l effusi ons. There is atelec tasis in the bilate ral lower lobes. There is diffus e promin ence of the interl obular septa. There is peribr onchia l thicke pliar. No pneumo thorax . No suspic ious medias tinal or axilla ry adenop athy. The heart is enlarg ed. There are postop erativ e change s of CABG. The centra l pulmon alber arteri es are ectati c. No thorac ic aortic aneury sm. There is mild bilate ral gyneco mastia . No fractu res are identi fied about the bony thorax . There is modera te thorac ic degene rative disc diseas e. There is slight thorac ic dextro scolio sis. There are thick athero sclero tic calcif icatio ns of the upper abdomi nal aorta and major branch es. There is fecal retent ion in the partia lly visual ized colon. IMPRES KIRIT: 1. Cardio megaly and postop erativ e change s of the heart with bilate ral pleura l effusi ons, peribr onchia l thicke pilar, and diffus e inters titial promin ence consis tent with CHF exacer bation . Page 1 [facility] [address] [address] Patien t Name: MIKE HUNTER Access ion #: [id number] Sex: M : 1949 0 Dictat ed By: Supa Daniels e Attend ing Physic bruna: ELVIN EARL [facility] Physic bruna: ROMARIO SCHULTZ Exam Date: 2024 12:32 PM Exam Name: CT CHEST WO Admitt ing Diagno sis(es ): 2. Pulmon alber arteri al hypert ension . 3. Extens maggie athero sclero tic vascul ar diseas e in the upper abdome n. 4. Fecal retent ion in the partia lly visual ized colon which may indica te consti pation . Electr onical ly Signed by: Supa dickens at 2024 17:00: 09 PM Page 2 INTERFACE [facility] (Imaging) [address] [place], [address], 11/21/2024 18:02:26 11/21/19 25 11/21/2024 imagi ng/di agnos tic resul t No observ ation record ed. [facility] [address] [place], [address], 11/21/2024 18:04:49 11/28/19 25 11/28/2024 elect diane crandallanum am No observ ation record ed. BAR[facility] Not Available 2024 17:27:10 11/28/19 25 11/28/2024 imagi ng/di agnos tic resul t No observ ation record ed. [facility] [address] [place], [address], 11/28/2024 17:48:07 11/28/19 25 11/28/2024 imagi ng/di agnos tic resul t No observ ation record ed. [facility] [address] [place], [address], 11/28/2024 19:33:33 01/10/20 25 01/07/2025 imagi ng/di agnos tic resul t No observ ation record ed. [facility] [address] , [place], [address], 01/09/2025 20:30:10 Result Notes Documentation Provider Name and Address Organization Details Recorded Time Ct, Chest, W/o Contrast : [facility] [address] [place] [address] Patient Name: MIKE HUNTER Sex: M : 1950 Dictated By: Supa Doherty Attending Physician: MARILUZ AGUERO Ordering Physician: MARILUZ AGUERO Exam Date: 11/21/2024 12:32 PM Exam Name: CT CHEST WO Admitting Diagnosis(es): EXAM: CT CHEST WO HISTORY: sob 74-year-old male with shortness of breath, former smoker. COMPARISON: None TECHNIQUE: Helical CT images of the chest were performed without contrast. Sagittal and coronal reformatted images were obtained. This CT exam was performed using one or more of the following dose reduction techniques: Automated exposure control, adjustment of the mA and/or kV according to patient size, or use of iterative reconstruction technique. FINDINGS: There are moderate right and small left pleural effusions. There is atelectasis in the bilateral lower lobes. There is diffuse prominence of the interlobular septa. There is peribronchial thickening. No pneumothorax. No suspicious mediastinal or axillary adenopathy. The heart is enlarged. There are postoperative changes of CABG. The central pulmonary arteries are ectatic. No thoracic aortic aneurysm. There is mild bilateral gynecomastia. No fractures are identified about the bony thorax. There is moderate thoracic degenerative disc disease. There is slight thoracic dextroscoliosis. There are thick atherosclerotic calcifications of the upper abdominal aorta and major branches. There is fecal retention in the partially visualized colon. IMPRESSION: 1. Cardiomegaly and postoperative changes of the heart with bilateral pleural effusions, peribronchial thickening, and diffuse interstitial prominence consistent with CHF exacerbation. Page 1 [place] [id number] Patient Name: MIKE HUNTER Sex: M : 1950 Dictated By: Supa Doherty Attending Physician: LAKISHA MCGRAW Ordering Physician: MARILUZ AGUERO Exam Date: 11/21/2024 12:32 PM Exam Name: CT CHEST WO Admitting Diagnosis(es): 2. Pulmonary arterial hypertension. 3. Extensive atherosclerotic vascular disease in the upper abdomen. 4. Fecal retention in the partially visualized colon which may indicate constipation. Page 2 Not Available [facility] 11/21/2024 18:02:26 Problems Name Problem SNOMED Code Status Onset Date Resolution Date Notes Provider Name and Address Organization Details Recorded Time Vertigo 694366214 Active Not Available [facility] 3 16:20:58 Type 2 diabetes mellitus 52261993 Active Not Available [facility] 3 16:20:58 Coronary atheroscleros is 879085889 Active Not Available [facility] 3 16:20:58 Hyperlipidemi a 45302873 Active Not Available [facility] 3 16:20:58 Essential hypertension 74868970 Active Not Available [facility] 3 16:20:58 Cataract 644290436 Active 2022 Mariluz walter MD [address], [place], [address] , [employer] [facility] [employer] 3 14:04:04 Poor short-term memory 225788537 Active 2022 Mariluz awlter MD [address], [place], [address] , [employer] 3 14:57:05 Osteoporosis 23981193 Active 2022 Mariluz walter MD [address], [place], [address] , [employer] [facility] [employer] [facility] 3 14:58:05 Type 2 diabetes mellitus without complication 274854203 Active 2023 Mariluz walter MD [address], [place], [address] , [employer] 4 09:17:47 Proteinuria 22959462 Active 2023 Mariluz walter MD [address], [place], [address] , [employer] [facility] [employer] [facility] 4 09:17:47 Coronary arteriosclero sis 77734959 Active 2023 Mariluz walter MD [address], [place], [address] , [facility] [employer] [facility] [employer] [facility] 4 09:17:48 Dyspnea on exertion 67679984 Active [address]23 Mariluz walter MD [address] [facility], [place], [address] , [facility] [employer] [facility] 4 09:17:48 Anemia 597429870 Active 2023 Mariluz walter MD [address] [facility], [address], [place], [address] , [facility] [employer] [facility] [employer] [facility] 4 14:24:02 Irregular heart beat 975985860 Active 2024 Marilu Johnson NP [address] [facility], [facility] [address], [place], [address] , [facility] [employer] [facility] 5 15:45:10 Notes:Medical History: Right thalamic lacunar infarct Memory impairment Vertigo Cataracts Left maxillary sinusitis Mild HI Mild RVE Hypertension EF 60% Hyperlipidemia T2DM with microalbuminuria CAD Hip osteoporosis Procedure History: Colonoscopy with polypectomy 2020 Problem Notes None recorded. Procedures Surgical History Date Name Laterality Status Provider Name and Address Organization Details Recorded Time 10/30/19 25 Medicare Wellness CPT Code, subsequent cancelled All Guadarrama LPN [facility] [employer] [facility] 10/30/2024 08:08:24 06/21/20 23 Medicare Wellness CPT Code, subsequent completed Gwendolyn Faust RN [facility] [employer] [facility] 06/21/2023 14:59:14 Cardiac Bypass completed Not Available [facility] 12/22/2022 14:44:56 Cardiac Stent Placement completed Not Available [facility] 12/22/2022 14:44:56 Colonoscopy completed Not Available [facility] 12/22/2022 14:44:56 Colonoscopy completed Not Available [facility] 12/22/2022 14:44:56 Cataract Surgery completed BREANN Bazan HI [employer] [facility] [employer] [facility] 12/13/2023 14:36:03 Imaging Results None recorded. Procedure Notes None recorded. Medical Equipment None Reported. Allergies No known drug allergies Medications Name Sig Start Date Stop Date Status Note LastModified by Organization Details LastModified Time losartan 50 mg tablet TAKE 1 TABLET BY MOUTH EVERY DAY active Not Available Not Available No t Available penicillin V potassium 250 mg tablet active Not Available Not Available Not Available amoxicilli n 500 mg capsule 05/19 completed Not Available Not Available Not Available furosemide 40 mg tablet TAKE 1 TABLET BY MOUTH EVERY DAY active Not Available Not Available No t Available atorvastat in 40 mg tablet TAKE 1 TABLET BY MOUTH EVERY DAY active Not Available Not Available No t Available carvedilol 6.25 mg tablet TAKE 1 TABLET BY MOUTH TWICE A DAY active Not Available Not Available No t Available glyburide 5 mg tablet 2 QAM, 1 1/2 QHS active Not Available Not Available No t Available ofloxacin 0.3 % eye drops INSTILL 1 DROP INTO SURGICAL EYE 3 TIMES DAILY BEGINNING 2 DAYS BEFORE SURGERY 10/07 completed Not Available Not Available Not Available benzonatat e 200 mg capsule TK 1 C PO TID PRF COUGH active Not Available Not Available No t Available clarithrom ycin 500 mg tablet 05/19 completed Not Available Not Available Not Available dofetilide 125 mcg capsule TAKE 2 CAPSULES BY MOUTH TWICE A DAY active Not Available Not Available No t Available clopidogre l 75 mg tablet TAKE 1 TABLET BY MOUTH EVERY DAY active Not Available Not Available No t Available peg-electr olyte solution 420 gram oral solution 05/27 completed Not Available Not Available Not Available tramadol 50 mg tablet active Not Available Not Available Not Available ketorolac 0.5 % eye drops INSTILL 1 DROP INTO SURGICAL EYE 4 TIMES DAILY BEGINNING 2 DAYS BEFORE SURGERY 02/08 completed Not Available Not Available Not Available prednisolo ne acetate 1 % eye drops,susp ension INSTILL 1 DROP INTO SURGICAL EYE 3 TIMES DAILY BEGINNING AFTER SURGERY 10/07 completed Not Available Not Available Not Available meclizine 25 mg tablet Take 1 tablet 3 times a day by oral route for 10 days. 04/29 completed Not Available Not Available Not Available pantoprazo le 40 mg tablet,del ayed release 05/19 completed Not Available Not Available Not Available ferrous sulfate 325 mg (65 mg iron) tablet active Not Available Not Available Not Available metformin 1,000 mg tablet TAKE 1 TABLET BY MOUTH TWICE A DAY active Not Available Not Available No t Available glimepirid e 4 mg tablet TAKE 1 TABLET BY MOUTH TWICE DAILY 06/16 completed Not Available Not Available Not Available losartan 25 mg tablet Take 1 tablet every day by oral route. 06/16 completed Not Available Not Available Not Available bisacodyl 5 mg tablet,del ayed release 05/27 completed Not Available Not Available Not Available Novolog FlexPen U-100 Insulin aspart 100 unit/mL (3 mL) subcutaneo us INJECT 10 UNITS UNDER THE SKIN 3 TIMES A DAY WITH MEALS 02/13 completed Not Available Not Available Not Available Levitra 20 mg tablet active Not Available Not Available No t Available Klor-Con M20 mEq tablet,ext ended release active Not Available Not Available Not Available Cialis 20 mg tablet ud active Not Available Not Available No t Available metoprolol tartrate 25 mg tablet BID 06/16 completed Not Available Not Available Not Available Cinnamon 500 mg capsule Take 1 capsule twice a day by oral route. 05/19 completed Not Available Not Available Not Available Aspir-81 TK 1T PO QD 01/21 completed Not Available Not Available Not Available multivitam in TK 1T PO QD 01/21 completed Not Available Not Available Not Available Levemir FlexPen 100 unit/mL (3 mL) solution subcutaneo us insulin pen INJECT 8 UNITS IN MORNING AND 10 UNITS AT BEDTIME x 90 DAYS 12/13 completed Not Available Not Available Not Available BD Ultra-Fine Short Pen Needle 31 gauge x 5/16 USE WITH INSULIN 5 TIMES DAILY 01/21 completed Not Available Not Available Not Available Zostavax (PF) 19,400 unit/0.65 mL subcutaneo us suspension active Not Available Not Available N ot Available Januvia 100 mg tablet TAKE 1 TABLET BY MOUTH EVERY DAY 06/16 completed Not Available Not Available Not Available Simcor 1,000 mg-20 mg tablet,ext ended release TAKE ONE TABLET BY MOUTH EVERY DAY active Not Available Not Available No t Available Calcium 500 + D (D3) TK 2T PO QD 01/21 completed Not Available Not Available Not Available Krill Oil ([place]angu[place] 3 and 6) 05/19 completed Not Available Not Available Not Available krill oil 01/21 completed Not Available Not Available Not Available OneTouch Verio test strips test tid 01/21 completed Not Available Not Available Not Available Eliquis 5 mg tablet TAKE 1 TABLET BY MOUTH TWICE A DAY active Not Available Not Available No t Available glucosamin e 116 mg-chondro itin 100 mg-dietary supplement no.25 capsule Take by oral route. 05/27 completed Not Available Not Available Not Available Farxiga 10 mg tablet TAKE 1 TABLET BY MOUTH ONCE A DAY active Not Available Not Available No t Available Jardiance 10 mg tablet Take 1 tablet every day by oral route. 06/16 completed Not Available Not Available Not Available Entresto 24 mg-26 mg tablet TAKE 1 TABLET BY MOUTH TWICE A DAY active Not Available Not Available No t Available Tresiba FlexTouch U-100 insulin 100 unit/mL (3 mL) subcutaneo us pen INJECT UP TO 24 UNITS UNDER THE SKIN DAILY AT BEDTIME 2024 active Not Available Not Available Not Avai lable BD Ultra-Fine Micro Pen Needle 32 gauge x 1/4 use to inject insulin up to 4 times a day 2023 active Not Available Not Available Not Avai lable Fiasp FlexTouch U-100 Insulin 100 unit/mL (3 mL) subcutaneo us pen INJECT 10 UNITS THREE TIMES DAILY BEFORE MEALS X 90 DAYS 07/12 completed Wants to stop and see if the A1C stays stable , does not like to take 'shots ' see note on 2023 Not Available Not Available Not Available Ozempic 0.25 mg or 0.5 mg (2 mg/1.5 mL) subcutaneo us pen injector INJECT 0.25 MG SUBCUTANE OUSLY ONCE WEEKLY FOR 4 WEEKS THEN 0.5 MG WEEKLY THEREAFTE R 05/27 completed Not Available Not Available Not Available Admelog SoloStar U-100 Insulin lispro 100 unit/mL subcutaneo us pen INJECT 10 UNITS THREE TIMES DAILY BEFORE MEALS 11/13 completed Not Available Not Available Not Available Glucosamin e Chondroiti n TK 2T PO QD 05/27 completed Not Available Not Available Not Available BD Krysten 2nd Gen Pen Needle 32 gauge x USE TO INJECT INSULIN UP TO 4 TIMES A DAY 2024 active Not Available Not Available Not Avai lable OneTouch Delica Plus Lancet 33 gauge 01/21 completed Not Available Not Available Not Available FreeStyle Dieudonne 2 Sensor kit CHANGE SENSOR EVERY 14 DAYS *NOT COVERED, PT PAYING ARORA* 01/21 completed Not Available Not Available Not Available Tr Advanced Niangu[place]-3 Algae 01/21 completed Not Available Not Available Not Available Vitals Date Recorded Body height Body mass index (BMI) Body weight Body temperature Heart rate Systolic And Diastolic Provider Name and Address Organization Details Last Updated DateTime 5 167.64 cm 28.7 kg/m2 76764.4 4 g 97.5 [degF] 78 /min 132/70 mm[Hg] Joy Milan Joseph [facility] [employer] [facility] 5 14:10:57 Date Recorded Body height Body mass index (BMI) Body weight Body temperature Heart rate Oxygen saturation Systolic And Diastolic Provider Name and Address Organization Details Last Updated DateTime 5 167.64 cm 29.3 kg/m2 64023.3 7 g 98 [degF] 119 /min 98 % 130/72 mm[Hg] Marisela Alcantar MA [facility] [employer] [facility] 5 15:10:12 Date Recorded Body height Body mass index (BMI) Body weight Body temperature Heart rate Systolic And Diastolic Provider Name and Address Organization Details Last Updated DateTime 4 167.64 cm 29.1 kg/m2 27325.6 3 g 97.3 [degF] 78 /min 130/72 mm[Hg] Joy Milan Joseph [facility] [employer] [facility] 4 10:32:03 Date Recorded Body height Body mass index (BMI) Body weight Body temperature Heart rate Systolic And Diastolic Provider Name and Address Organization Details Last Updated DateTime 4 167.64 cm 29.1 kg/m2 58664.6 3 g 97.4 [degF] 78 /min 120/80 mm[Hg] Joy Milan Joseph [facility] [employer] [facility] 4 14:18:20 Date Recorded Body height Body mass index (BMI) Body weight Body temperature Heart rate Oxygen saturation Systolic And Diastolic Provider Name and Address Organization Details Last Updated DateTime 4 167.64 cm 45.8 kg/m2 183268. 23 g 97.3 [degF] 87 /min 98 % 171/81 mm[Hg] Idalmis Solorio [place] [facility] 4 14:04:06 Social History Question Answer Notes LastModified by Organization Details LastModified Time Tobacco Smoking Status Former Smoker QUIT AT 26 YRS OLD Not Available [employer] 12/22/2022 14:44:32 Do You Have An Advance Directive? Yes MIGRATION.300026 Information not available 12/22/2022 Are You Blind Or Do You Have Difficulty Seeing? Yes RIGHT EYE BLURRY [id number] Information not available 12/22/2022 What Is Your Level Of Caffeine Consumption? Moderate PER PT, 2 CUPS COFFEE IN THE MORNING MIGRATION.300026 Information not available 12/22/2022 In The 14 Days Before Symptom Onset, Have You Had Close Contact With A Laboratory-conf irmed COVID-19 While That Case Was Ill? No MIGRATION.030 [id number] Information not available 12/22/2022 In The 14 Days Before Symptom Onset, Have You Had Close Contact With A Person Who Is Under Investigation For COVID-19 While That Person Was Ill? No MIGRATION.030 [id number] Information not available 12/22/2022 Are You Deaf Or Do You Have Serious Difficulty Hearing? Yes WORKED AT [employer] FOR 40YRS, DOES HAVE DIFFICULTY MIGRATION.300026 Information not available 12/22/2022 What Type Of Diet Are You Following? REGULAR MIGRATION.300026 Information not available 12/22/2022 What Is The Highest Grade Or Level Of School You Have Completed Or The Highest Degree You Have Received? [id number] MIGRATION.[id number] Information not available 12/22/2022 Do You Have An Electrostatic Air Filter? No Information not available 11/28/2024 Have There Been Any Changes To Your Family Or Social Situation? No MIGRATION.300026 Information not available 12/22/2022 What Is The Fluoride Status Of Your Home? Unknown MIGRATION.300026 Information not available 12/22/2022 When Did You Quit Smoking? 16+yearssincelast cigarette MIGRATION.0301 [id number] Information not available 12/22/2022 Are There Any Guns Present In Your Home? Yes MIGRATION.0301 [id number] Information not available 12/22/2022 Do You Have A Humidifier? No Information not available 11/28/2024 Do You Use Insect Repellent Routinely? No MIGRATION.0301 [id number] Information not available 12/22/2022 Where Do You Live? [facility] MIGRATION.0301 [id number] Information not available 12/22/2022 Are You Able To Care For Yourself? Yes [email or web address] Information not available 06/21/2023 Are You Blind Or Do Yo Have Difficulty Seeing? Yes Unable To See Out Of Right Eye [email or web address] Information not available 06/21/2023 Are You Deaf Or Do You Have Serious Difficulty Hearing? Yes [email or web address] Information not available 06/21/2023 Live Alone Of With Others? With Others [email or web address] Information not available 06/21/2023 Do You Have A Medical Power Of Chemical Processor? Yes MIGRATION.0301 [id number] Information not available 12/22/2022 Do You Have Moisture Problems In Your Home? No Information not available 11/28/2024 What Was The Date Of Your Most Recent Tobacco Screening? 11/28/2024 Information not available 11/28/2024 Do You Have Any Pets? No MIGRATION.0301 [id number] Information not available 12/22/2022 What Is Your Relationship Status? MIGRATION.0301 [id number] Information not available 12/22/2022 Do You Use Your Seat Belt Or Car Seat Routinely? Yes MIGRATION.0301 [id number] Information not available 12/22/2022 Do You Have Smoke And Carbon Monoxide Detectors In Your Home? Yes MIGRATION.0301 229348 Information not available 12/22/2022 Are You Passively Exposed To Smoke? Yes MIGRATION.0301 736120 Information not available 12/22/2022 Are There Any Smokers In Your House? Yes MIGRATION.0301 [id number] Information not available 12/22/2022 How Much Tobacco Do You Smoke? 2 PPD Information not available 11/28/2024 What Types Of Sporting Activities Do You Participate In? None MIGRATION.0301 227909 Information not available 12/22/2022 Do You Use Sunscreen Routinely? No MIGRATION.0301 499468 Information not available 12/22/2022 Has Tobacco Cessation Counseling Been Provided? No MIGRATION.0301 670826 Information not available 12/22/2022 How Many Years Have You Smoked Tobacco? 10 MIGRATION.0301 [id number] Information not available 12/22/2022 Have You Recently Traveled Abroad? No MIGRATION.0301 [id number] Information not available 12/22/2022 Do You Have Difficulty Walking Or Climbing Stairs? No MIGRATION.0301 357165 Information not available 12/22/2022 Do You Have Any Dietary Restrictions? No MIGRATION.0301 196186 Information not available 12/22/2022 Sex: Male Functional Status Question Answer Note LastModified by [employer] ion Details LastModified Time Do you use any illicit or recreational drugs? No MIGRATION.82343 63437 Information not available 12/22/2022 Do you or have you ever used any other forms of tobacco or nicotine? No MIGRATION.96704 20222 Information not available 12/22/2022 What is your level of alcohol consumption? 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 Yes Worked in [employer] 47 years Information not available 11/28/2024 Do you have transportation difficulties? No MIGRATION.76709 27072 Information not available 12/22/2022 Are you able to walk independently without assistance or assistive devices? YESWOREST MIGRATION.19461 72075 Information not available 12/22/2022 Do you have difficulty doing errands alone? Yes PER PT, WITH EYESIGHT MIGRATION.80195 50121 Information not available 12/22/2022 Are you able to care for yourself independently? Yes WITH HELP MIGRATION.87450 79245 Information not available 12/22/2022 Do you have difficulty dressing, bathing, grooming, or toileting? No MIGRATION.45590 83752 Information not available 12/22/2022 What is your exercise level? Moderate MIGRATION.94699 53151 Information not available 12/22/2022 Mental Status Question Answer Note LastModified by [employer] ion Details LastModified Time Do you feel stressed (tense, restless, nervous, or anxious, or unable to sleep at night)? [id number] MIGRATION.608363 5973 Information not available 12/22/2022 Do you have difficulty concentrating, remembering or making decisions? Yes PER PT, TO A CERTAIN EXTENT MIGRATION.764863 1620 Information not available 12/22/2022 Family History Relationship Description Onset Age of this Age Resolved Age Notes LastModified by Organization Details LastModified Time Mother Cardiomegaly MIGRATION.0 30 [id number] Not available 12/22/2022 14:44:58 Father Old-age MIGRATION.115 [id number] Not available 12/22/2022 14:44:58 Medical History Condition Response NERVE DISEASE N BLINDNESS N RHEUMATIC FEVER N KIDNEY STONES N BLADDER PROBLEMS N MRSA N OTHER # 1 N POLIO N LUNG DISEASE/DISORDER N HISTORY OF DRUG ABUSE N COPD N RADIATION / CHEMOTHERAPY N Other # 2 N BLOOD DISEASES N EAR OR HEARING PROBLEMS N MUMPS N SHINGLES N DEPRESSION (INCLUDING POST ) N BOWEL PROBLEMS N STROKE/TIA N ULCERS N BENIGN PROSTATIC HYPERPLASIA N MEASLES N HYPOTENSION N MYOCARDIAL INFARCTION N OBESITY N GERD/NAUSEA N ANEURYSM N URINARY/BLADDER/KIDNEY PROBLEMS N CORONARY ARTERY DISEASE (CAD) Y ADDICTION CONCERNS N Impotence N ENDOMETRIOSIS N USE OF BLOOD THINNERS Y SKIN PROBLEMS N GASTROINTESTINAL DISORDER N PERIPHERAL VASCULAR DISEASE N MUSCLE,JOINT OR BONE PROBLEMS N GASTROINTESTINAL BLEEDING N BLOOD CLOTS N ASTHMA N CATARACTS Y ERECTILE DYSFUNCTION N VARICOSITIES N GI PROBLEMS N Low Testosterone N INFERTILITY N AIDS/HIV N CHEMOTHERAPY / RADIATION N LIVER DISEASE N MALE HYPOGONADISM N HYPERTENSION N Deficiency N TOURETTE'S N ANXIETY DISORDER N BLOOD TRANSFUSION N ANEMIA/BLOOD DISORDER N CHRONIC EAR INFECTIONS N BRONCHITIS N TUBERCULOSIS N GLAUCOMA N FOOT PROBLEM N DIVERTICULITIS N CHICKENPOX N SLEEP APNEA N INFECTIOUS DISEASE N HEART ARRHYTHMIA N PROSTATE N INSOMNIA N HIGH CHOLESTEROL / HYPERLIPIDEMIA Y EYE PROBLEMS Y HYPERTHYROIDISM N EDEMA N CHRONIC PAIN SYNDROME N HYPOTHYROIDISM N CAROTID BLOCKAGE N CONSTIPATION N BACK / NECK PROBLEMS N ATHEROSCLEROSIS N BREAST PROBLEMS N DIALYSIS N ECZEMA N OSTEOPOROSIS N ARTHRITIS N APPENDICITIS N DIABETES, TYPE Y BAD TEETH N ENT N HEARTBURN / REFLUX N AUTISM SPECTRUM DISORDER (ASD) N HEPATITIS / LIVER DISEASE N GOUT N SLEEP DISORDER N ALZHEIMER'S DISEASE N Brain Problems N HERPES N DEMENTIA N SEIZURES/EPILEPSY N HEADACHES/MIGRAINES N VASCULAR DISEASE N PACEMAKER N Blood Disorder N DIZZINESS N KIDNEY DISEASE N HEART DISEASE/HEART PROBLEMS N MULTIPLE SCLEROSIS N CARDIAC ARRHYTHMIA N CANCER: SPECIFY N Gall Stones N ATRIAL FIBRILLATION N PULMONARY EMBOLISM N AUTOIMMUNE DISEASE N Immunizations Vaccine Type Date Status Note Provider Nam e and Address Organization Details Recorded Time pneumococcal polysaccharide PPV23 3 completed Mariluz Aguero MD [address] [facility], [facility] [address], [place], [address], [facility] 10/11/2023 13:33:03 Influenza, high-dose, trivalent, PF 9 completed Joy Milan RMA null, [facility] 08/27/2024 17:18:23 Influenza, adjuvanted, trivalent, PF 4 completed Joy Milan RMA null, [facility] 08/27/2024 17:18:42 RSV, recombinant, protein subunit RSVpreF, adjuvant reconstituted, 0.5 mL, PF 4 completed Joy Milan RMA null, [facility] 08/27/2024 17:18:42 zoster live 5 completed Joy Milan RMA null, [facility] 08/27/2024 17:18:23 zoster live 5 completed Joy Milan RMA null, [facility] 08/27/2024 17:18:23 Influenza, high-dose, trivalent, PF 4 completed Joy Milan RMA kate, [facility] 08/27/2024 17:18:23 Influenza, high-dose, quadrivalent, PF 2 completed Not Available [facility] 06/10/2023 16:20:59 Pneumococcal conjugate PCV 13 1 completed Joy Milan RMA kate, [facility] 08/27/2024 17:18:23 Influenza, split virus, quadrivalent, PF 5 completed Not Available [facility] 06/10/2023 16:20:59 Past Encounters Encounter ID Performer Location Encounter Start Date Encounter Closed Date Diagnosis/Indication Diagnosis SNOMED-CT Code Diagnosis ICD10 Code Diagnosis IMO Codes Diagnosis Note [id number] Mariluz walter MD S[facility] Internal [facility] [address] [facility] [address] [place] [address] 05/19/2021 00:00:00 06/02/2021 15:14:38 [id number] Mariluz walter MD [facility] [address] [address] 06/16/2021 00:00:00 06/16/2021 16:15:43 [id number] [facility] I[facility]_ DEFAULT_1 _1 , 07/24/2021 00:00:00 07/27/2021 10:51:20 [id number] MD BEN PatelS_[facility] Internal Med [facility] [address] [facility] [address] [address] 05/27/2022 00:00:00 05/27/2022 13:56:45 [id number] MD BEN PatelS_[facility] Internal Med [facility] [address] [facility] [address] [address] 09/09/2022 00:00:00 09/09/2022 14:23:55 [id number] MD BERNARD Jacobo_[facility] [address] [place] [address] 10/07/2022 00:00:00 10/07/2022 14:37:41 [id number] MD BEN PatelS_[facility] Internal Med [facility] [address] [address] 12/21/2022 00:00:00 12/21/2022 14:53:53 [id number] MD BERNARD Jacobo[facility] [address] [place] [address] 02/08/2023 11:07:13 02/08/2023 11:54:30 Uncontrolled type 2 diabetes mellitus [id number] E11.65 A1C of 8.9% down from 10.3% - continue on levemir 18 units at bedtime and titrate to goal fasting 90-130 mg/dL (he is aware to split his levemir and take 10% more at bedtime if experienci ng any lows in middle of night). Per sugars are in range. Continue novolog 1:10 carb ratio for his meals if he is eating a starchy carb diet in addition to correction of 1U:50>150 mg/dl on premeal FS prior to meals. Based on glucose log he is 80% in range- if repeat a1c in february under 8% can be cleared for cataract surgery. Dyslipidemia [id number] E 78.5 continue statin therapy. Spent up to 25 minutes preparing to see the patient (eg, review of tests), obtaining and/or reviewing separately obtained history, performing a medically appropriat e examinatio n and evaluation , counseling and educating the patient, ordering medication s, tests, along with documentin g clinical informatio n in the electronic health record, independen tly interpreti ng results and communicat ing results to the patient. RTC in 4 months. Patient was provided a handwritte n lab order which contains our fax number. If he chooses to go outside of the [facility] system to obtain labwork he was advised to provide our fax number and my informatio n to the lab he will be obtaining labwork from in order to have his labs properly forwarded over for me to review so there is no loss of follow up due to use of outside network. He was also advised to contact our clinic informing us that he has completed his labwork so we are aware we will need to reach out to the appropriat e laboratory to request his results be forwarded to us so I might have the ability to review and make further medical decision making in his case. He voiced understand ing. [id number] Mariluz walter MD [facility] Internal Med [place] [address] [facility] [place] [address] [place] [address] 06/21/2023 14:11:04 06/21/2023 15:29:05 Screening - NAD [id number] Z13.9 C-scope: 02/27/2009 Dr Pepe nC-scope: 07/28/2021 : Dr Bueno next in 5 years DEXA: 04/07/2023 : OP; Sees Dr Mckinney Get yearly flu shotGet tdap if not doneUTD on zoster vaccineCan do COVID 19 vaccineUTD PCV #13 06/03/2021 , get PCV #20 06/21/2023 RTC in 3 monthsDo labsER if any symptoms worsenHe and his did verbalize his understand ing of the above Hyperlipidemia [id number] E78.5 On ASAOn atorvastat in 40mg daily Get labs Coronary arteriosclerosis 51157408 I25.10 S/p CABGS/p stentsSLHV Dr Ohara 04/22/2022 , next in 6 months ECHO 04/19/2022 US AAA: 06/02/2021 : Neg On ASAOn plavixOn losartan 50mg daily should be on this as per med list of [facility] 04/22/2022 Not on metoprolol 25mg dailyDoes well Type 2 khurram betes mellitus without complication [id number] E11.9 OV 06/16/2021 :On glimepirid e 4mg bid, d/cOn januvia 100mg daily, d/c, as this has been $300 per monthOn jardiance 10mg daily, d/c as this too has been $300 per monthOn levemir 40U at bedtimeOn metformin 1000mg bidGet on ozempic, no symptoms or MEN2 syndrome or pancreatic issuesDemo nstrated how to use the ozempic in clinic to him and his [facility] Jerman labs OV 05/27/2022 :On levemir 30U bedtimeOn metformin 1000mg bidOn ozempic, will d/c this as he has lost weightGet a referral to Dr Jackson an A1C doneAdvise d to cut back on carbs, his CG states he does eat sweets and drinks beer OV 09/09/2022 :As per Kasandra he continues to eat 'junk foods' states that he 'brings in cake and beer', advised on diet controlOn levemir 25U at bedtimeSta rt on humolog 10U with every meal, all side effects explained to himOn metformin 1000mg bidNeeds to see Dr Mckinney OV 12/21/2022 :On levemir 25U at bedtimeOn metformin 1000mg bidOn novolog 10U tidDr Hank f/u 02/08/2023 Does need to see the eye MD, needs to do his cataract surgery, will need to get the A1C in better control at least below 8.0 As per he still binges on chocolates and beer, advised to count carbs and calories! OV 06/21/2023 :On metformin 1000mg bidOn novolog 10 U tidOn tresciba 20 U pmKeep apt with Dr Mckinney 06/30/2023 Ex-smoker 5086924 Z87.89 1 Quit 16+ years agoUS AAA: 06/02/2021 : Neg Does well Cataract 293051706 H26.9 Is to get the cataract surgery by Dr RojasHe is not yet cleared for surgery d/t his elevated A1C OV 06/21/2023 : Now should be able to do his cataract surgery Poor short -term memory [id number] R41.3 Get MRI brainGet a referral to neurology Osteoporosis [id number] M8 1.[address] Mckinney 06/30/2023 , needs to keep apt with endocrine Adult [facility] th examination [id number] Z00.00 Screening for disorder [id number] Z13.9 Proteinuria 32965226 R80 .9 Repeat the labs, the has said that she does not want to see nephrology yet as he has to keep his other appointmen ts Administra tion of pneumococcal vaccine 23273491 Z23 [id number] Carisa Mckinney MD [facility] [address] [place] [address] 06/30/2023 12:01:12 06/30/2023 12:51:03 Well controlled type 2 diabetes mellitus [id number] E11.9 a1c of 6.4% - patient having hypoglycem ia in the veterinarian small animal. Patient advised to split levemir and take 8 units in morning and 10 units at bedtime and titrate to goal fasting 90-130 mg/dL. Continue novolog 1:10 carb ratio for his meals if he is eating a starchy carb diet in addition to correction of 1U:50>150 mg/dl on premeal FS prior to meals. 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 Osteoporosis 56271656 M8 1.0 Bone density this past summer c/w osteoporos is of hips with T score of -2.7- if he has hypophosph atasia then bisphospho janak therapy would be contraindi cated - refer to [facility] / bone clinic for further confirmati on to see if patient does have hypophosph atasia and to direct targeted therapy. Spent up to 25 minutes preparing to see the patient (eg, review of tests), obtaining and/or reviewing separately obtained history, performing a medically appropriat e examinatio n and evaluation , counseling and educating the patient, ordering medication s, tests, along with documentin g clinical informatio n in the electronic health record, independen tly interpreti ng results and communicat ing results to the patient. Patient can be followed by PCP - she/he is aware of my resignatio n and last day of August 05. If needed his/her PCP can refer patient to another endocrinol ogist in the area. All questions /concerns answered and refills necessary at visit today. [id number] Mariluz walter MD S_[facility] Internal Med [facility] [address] [facility], [facility] [address] [place] [address] 12/13/2023 14:28:39 12/13/2023 15:10:20 Screening - NAD [id number] Z13.9 C-scope: 02/27/2009 Dr Pepe nC-scope: 07/28/2021 : Dr Bueno next in 5 years DEXA: 04/07/2023 : OP; Sees Dr Mckinney Get yearly flu shotGet tdap if not doneUTD on zoster vaccineCan do COVID 19 vaccineUTD PCV #13 06/03/2021 , get PCV #20 06/21/2023 Can do RSV vaccine RTC in 3 monthsDo labsER if any symptoms worsenHe and his did verbalize his understand ing of the above Hyperlipidemia 82229704 E78.5 On ASAOn atorvastat in 40mg daily Get labs Coronary arteriosclerosis 83583290 I25.10 S/p CABGS/p stentsSL[facility] Dr Ohara 04/22/2022 , next in 6 months ECHO 04/19/2022 US AAA: 06/02/2021 : Neg On ASAOn plavixOn losartan 50mg daily should be on this as per med list of [facility] 04/22/2022 Not on metoprolol 25mg dailyDoes well Type 2 khurram betes mellitus without complication 316928776 E11.9 OV 06/16/2021 :On glimepirid e 4mg bid, d/cOn januvia 100mg daily, d/c, as this has been $300 per monthOn jardiance 10mg daily, d/c as this too has been $300 per month On levemir 40U at bedtimeOn metformin 1000mg bidGet on ozempic, no symptoms or MEN2 syndrome or pancreatic issuesDemo nstrated how to use the ozempic in clinic to him and his [facility] labs OV 05/27/2022 :On levemir 30U bedtimeOn metformin 1000mg bidOn ozempic, will d/c this as he has lost weightGet a referral to Dr Jackson an A1C doneAdvise d to cut back on carbs, his CG states he does eat sweets and drinks beer OV 09/09/2022 :As per Kasandra he continues to eat 'junk foods' states that he 'brings in cake and beer', advised on diet controlOn levemir 25U at bedtimeSta rt on humolog 10U with every meal, all side effects explained to himOn metformin 1000mg bidNeeds to see Dr Mckinney OV 12/21/2022 :On levemir 25U at bedtimeOn metformin 1000mg bidOn novolog 10U Willem Mckinney f/u 02/08/2023 Does need to see the eye MD, needs to do his cataract surgery, will need to get the A1C in better control at least below 8.0 As per he still binges on chocolates and beer, advised to count carbs and calories! OV 06/21/2023 :On metformin 1000mg bidOn novolog 10 U tidOn tresciba 20 U pmKeep apt with Dr Mckinney 06/30/2023 OV 12/22/2023 :On metformin 1000mg bidOn novolog 10 tidOn Tresciba 24 U dailyShoul d NOT be on levemir Ex-smoker 8462894 Z87.89 1 Quit 16+ years agoUS AAA: 06/02/2021 : Neg Does well Cataract 789977843 H26.9 Is to get the cataract surgery by Dr RojasHe is not yet cleared for surgery d/t his elevated A1C OV 06/21/2023 : Now should be able to do his cataract surgery OV 12/13/2023 : Does now sees eye Poor short -term memory 997996960 R41.3 Get a referral to neurology MRI Brain 08/08/2023 Osteoporosis 31144904 M8 1.[address] Mckinney 06/30/2023 , needs to keep apt with endocrine Proteinuria 38710419 R80 .9 Repeat the labs, the has said that she does not want to see nephrology yet as he has to keep his other appointmen ts Dyspnea on exertion [address] chest [id number] Mariluz walter MD S[facility] Internal Med [facility] [address] [facility], [facility] [address] [place] [address] 02/14/2024 10:20:17 02/14/2024 10:55:58 Screening - NAD [id number] Z13.9 C-scope: 02/27/2009 Dr Pepe nC-scope: 07/28/2021 : Dr Bueno next in 5 years DEXA: 04/07/2023 : OP; Sees Dr Mckinney Get yearly flu shotGet tdap if not doneUTD on zoster vaccineCan do COVID 19 vaccineUTD PCV #13 06/03/2021 , get PCV #20 06/21/2023 Can do RSV vaccine RTC in 3 monthsDo labsER if any symptoms worsenHe and his did verbalize his understand ing of the above Hyperlipidemia 49271228 E78.5 On ASAOn atorvastat in 40mg daily Get labs Coronary arteriosclerosis 60825689 I25.10 S/p CABGS/p stents[facility] Dr Ohara 04/22/2022 , next in [address] Ohara 12/22/2023 , should be on metoprolol 25ng bid ECHO 04/19/2022 AAA: 06/02/2021 : NegECHO 08/17/2023 : Dr Ohara: arrhythmia On ASAOn plavixOn losartan 50mg daily should be on this as per med list of [facility] 04/22/2022 Not on metoprolol 25mg dailyDoes well Type 2 khurram betes mellitus without complication 689039394 E11.9 OV 06/16/2021 :On glimepirid e 4mg bid, d/cOn januvia 100mg daily, d/c, as this has been $300 per monthOn jardiance 10mg daily, d/c as this too has been $300 per month On levemir 40U at bedtimeOn metformin 1000mg bidGet on ozempic, no symptoms or MEN2 syndrome or pancreatic issuesDemo nstrated how to use the ozempic in clinic to him and his GR [facility] labs OV 05/27/2022 :On levemir 30U bedtimeOn metformin 1000mg bidOn ozempic, will d/c this as he has lost weightGet a referral to Dr Jackson an A1C doneAdvise d to cut back on carbs, his CG states he does eat sweets and drinks beer OV 09/09/2022 :As per Kasandra he continues to eat 'junk foods' states that he 'brings in cake and beer', advised on diet controlOn levemir 25U at bedtimeSta rt on humolog 10U with every meal, all side effects explained to himOn metformin 1000mg bidNeeds to see Dr Mckinney OV 12/21/2022 :On levemir 25U at bedtimeOn metformin 1000mg bidOn novolog 10U Willem Mckinney f/u 02/08/2023 Does need to see the eye MD, needs to do his cataract surgery, will need to get the A1C in better control at least below 8.0 As per he still binges on chocolates and beer, advised to count carbs and calories! OV 06/21/2023 :On metformin 1000mg bidOn novolog 10 U tidOn tresciba 20 U pmKeep apt with Dr Mckinney 06/30/2023 OV 12/22/2023 :On metformin 1000mg bidOn novolog 10 tidOn Tresciba 24 U dailyShoul d NOT be on levemir OV 02/14/2024 :On metformin 1000mg bidOn Fiasp U100 10U tidOn Tresciba U100 14-16U at bedtimeMor e diet is neededShou ld not be on the novologGet labs Ex-smoker 6834882 Z87.89 1 Quit 16+ years agoUS AAA: 06/02/2021 : Neg Does well Cataract 078916153 H26.9 Is to get the cataract surgery by Dr Archer is not yet cleared for surgery d/t his elevated A1C OV 06/21/2023 : Now should be able to do his cataract surgery OV 12/13/2023 : Does now sees eye MD Poor short -term memory 658622558 R41.3 Get a referral to neurology MRI Brain 08/08/2023 Osteoporosis 32783418 M8 1.[address] Mckinney 06/30/2023 , needs to keep apt with endocrine Proteinuria 04308836 R80 .9 Repeat the labs, the has said that she does not want to see nephrology yet as he has to keep his other appointmen ts Dyspnea on exertion [address] chest [id number] Mariluz walter MD [facility] Internal Med [address] [facility], [address] [place] [address] 03/15/2024 14:05:54 03/15/2024 14:41:59 Coronary arteriosclerosis 16869456 I25.10 S/p CABGS/p stentsSL[facility] Dr Ohara 04/22/2022 , next in [address] Ohara 12/22/2023 , should be on metoprolol 25ng bid ECHO 04/19/2022 AAA: 06/02/2021 : NegECHO 08/17/2023 : Dr Ohara: arrhythmia On ASAOn plavixOn losartan 50mg daily should be on this as per med list of [facility] 04/22/2022 Not on metoprolol 25mg dailyDoes well Screening - NAD 33059843 3 Z13.9 C-scope: 02/27/2009 Dr Pepe nC-scope: 07/28/2021 : Dr Bueno next in 5 years DEXA: 04/07/2023 : OP; Sees Dr Mckinney Get yearly flu shotGet tdap if not doneUTD on zoster vaccineCan do COVID 19 vaccineUTD PCV #13 06/03/2021 , get PCV #20 06/21/2023 Can do RSV vaccine RTC in 3 monthsDo labsER if any symptoms worsenHe and his did verbalize his understand ing of the above Hyperlipidemia 70026406 E78.5 On ASAOn atorvastat in 40mg daily Get labs Type 2 khurram betes mellitus without complication 327697462 E11.9 OV 06/16/2021 :On glimepirid e 4mg bid, d/cOn januvia 100mg daily, d/c, as this has been $300 per monthOn jardiance 10mg daily, d/c as this too has been $300 per month On levemir 40U at bedtimeOn metformin 1000mg bidGet on ozempic, no symptoms or MEN2 syndrome or pancreatic issuesDemo nstrated how to use the ozempic in clinic to [facility] 05/27/2022 :On levemir 30U bedtimeOn metformin 1000mg bidOn ozempic, will d/c this as he has lost weightGet a referral to Dr Jackson an A1C doneAdvise d to cut back on carbs, his CG states he does eat sweets and drinks beer OV 09/09/2022 :As per Kasandra he continues to eat 'junk foods' states that he 'brings in cake and beer', advised on diet controlOn levemir 25U at bedtimeSta rt on humolog 10U with every meal, all side effects explained to himOn metformin 1000mg bidNeeds to see Dr Mckinney OV 12/21/2022 :On levemir 25U at bedtimeOn metformin 1000mg bidOn novolog 10U tiShi Mckinney f/u 02/08/2023 Does need to see the eye MD, needs to do his cataract surgery, will need to get the A1C in better control at least below 8.0 As per he still binges on chocolates and beer, advised to count carbs and calories! OV 06/21/2023 :On metformin 1000mg bidOn novolog 10 U tidOn tresciba 20 U pmKeep apt with Dr Mckinney 06/30/2023 OV 12/22/2023 :On metformin 1000mg bidOn novolog 10 tidOn Tresciba 24 U dailyShoul d NOT be on levemir OV 02/14/2024 :On metformin 1000mg bidOn Fiasp U100 10U tidOn Tresciba U100 14-16U at bedtimeMor e diet is neededShou ld not be on the novologGet labs OV 03/15/2024 :On metformin 1000mg bidOn tresciba 14-16 U Ex-smoker 2620698 Z87.89 1 Quit 16+ years agoUS AAA: 06/02/2021 : Neg Does well Cataract 799003829 H26.9 Is to get the cataract surgery by Dr Archer is not yet cleared for surgery d/t his elevated A1C OV 06/21/2023 : Now should be able to do his cataract surgery OV 12/13/2023 : Does now sees eye MD Poor short -term memory 356523053 R41.3 Get a referral to neurology MRI Brain 08/08/2023 Osteoporosis 51444776 M8 1.[address] Mckinney 06/30/2023 , needs to keep apt with endocrine Proteinuria 17359728 R80 .9 Repeat the labs, the has said that she does not want to see nephrology yet as he has to keep his other appointmen ts Dyspnea on exertion [address] chest Anemia 746977252 D64.9 Can do more iron in dietGet labs [id number] Mariluz walter MD S[facility] Internal Med [facility] [address] [facility], [facility] [address] [place] [address] 07/12/2024 13:48:50 07/12/2024 14:28:42 Coronary arteriosclerosis 36480327 I25.10 S/p CABGS/p stents[facility] Dr Ohara 04/22/2022 , next in [address] Ohara 12/22/2023 , should be on metoprolol 25ng bid ECHO 04/19/2022 AAA: 06/02/2021 : NegECHO 08/17/2023 : Dr Ohara: arrhythmia On ASAOn plavixOn losartan 50mg daily should be on this as per med list of [facility] 04/22/2022 Not on metoprolol 25mg dailyDoes well Screening - NAD 84765288 3 Z13.9 C-scope: 02/27/2009 Dr Pepe nC-scope: 07/28/2021 : Dr Bueno next in 5 years DEXA: 04/07/2023 : OP; Seen Dr Mckinney Get yearly flu shotGet tdap if not doneUTD on zoster vaccineCan do COVID 19 vaccineUTD PCV #13 06/03/2021 , get PCV #20 06/21/2023 Can do RSV vaccine RTC in 3 monthsDo labsER if any symptoms worsenHe and his did verbalize his understand ing of the above Hyperlipidemia 50274503 E78.5 On ASAOn atorvastat in 40mg daily Get labs Type 2 khurram betes mellitus without complication 393302097 E11.9 OV 06/16/2021 :On glimepirid e 4mg bid, d/cOn januvia 100mg daily, d/c, as this has been $300 per monthOn jardiance 10mg daily, d/c as this too has been $300 per month On levemir 40U at bedtimeOn metformin 1000mg bidGet on ozempic, no symptoms or MEN2 syndrome or pancreatic issuesDemo nstrated how to use the ozempic in clinic to him and his GR Jerman guan OV 05/27/2022 :On levemir 30U bedtimeOn metformin 1000mg bidOn ozempic, will d/c this as he has lost weightGet a referral to Dr Jackson an A1C doneAdvise d to cut back on carbs, his CG states he does eat sweets and drinks beer OV 09/09/2022 :As per Kasandra he continues to eat 'junk foods' states that he 'brings in cake and beer', advised on diet controlOn levemir 25U at bedtimeSta rt on humolog 10U with every meal, all side effects explained to himOn metformin 1000mg bidNeeds to see Dr Mckinney OV 12/21/2022 :On levemir 25U at bedtimeOn metformin 1000mg bidOn novolog 10U tiShi Mckinney f/u 02/08/2023 Does need to see the eye MD, needs to do his cataract surgery, will need to get the A1C in better control at least below 8.0 As per he still binges on chocolates and beer, advised to count carbs and calories! OV 06/21/2023 :On metformin 1000mg bidOn novolog 10 U tidOn tresciba 20 U pmKeep apt with Dr Mckinney 06/30/2023 OV 12/22/2023 :On metformin 1000mg bidOn novolog 10 tidOn Tresciba 24 U dailyShoul d NOT be on levemir OV 02/14/2024 :On metformin 1000mg bidOn Fiasp U100 10U tidOn Tresciba U100 14-16U at bedtimeMor e diet is neededShou ld not be on the novologGet labs OV 03/15/2024 :On metformin 1000mg bidOn tresciba 14-16 U OV 07/12/2024 :On metforminO n Fiasp 10U tid, wants to get off this as he does not like needles and as per Kasandra he has outbursts when he has to take this, more diet control as he is binging on chocolates and sodOn Tresiba 25 UGet labs Ex-smoker 3534539 Z87.89 1 Quit 16+ years agoUS AAA: 06/02/2021 : Neg Does well Cataract 298199032 H26.9 Is to get the cataract surgery by Dr Archer is not yet cleared for surgery d/t his elevated A1C OV 06/21/2023 : Now should be able to do his cataract surgery OV 12/13/2023 : Does now sees eye Poor short -term memory 943237057 R41.3 Get a referral to neurology MRI Brain 08/08/2023 Osteoporosis 13993213 M8 [address] Mckinney 06/30/2023 , needs to keep apt with endocrine Proteinuria 58230106 R80 .9 Should see nephrology Dyspnea on exertion [address] chest, referral again provided Anemia 848911557 D64.9 Can do more iron in dietGet labs [id number] Mariluz walter MD S_[facility] Internal Med [address] [place] , [address] [place] [address] 11/13/2024 13:59:28 11/13/2024 14:35:34 Coronary arteriosclerosis 28580222 I25.10 S/p CABGS/p stents[facility] Dr Ohara 04/22/2022 , next in [address] Ohara 12/22/2023 , should be on metoprolol 25ng bid ECHO 04/19/2022 US AAA: 06/02/2021 : NegECHO 08/17/2023 : Dr Ohara: arrhythmia On ASAOn plavixOn losartan 50mg dailyNot on metoprolol 25mg dailyDoes well Screening - NAD 69242139 3 Z13.9 C-scope: 02/27/2009 Dr Pepe nC-scope: 07/28/2021 : Dr Bueno next in 5 years DEXA: 04/07/2023 : OP; Seen Dr Mckinney Get yearly flu shotGet tdap if not doneUTD on zoster vaccineCan do COVID 19 vaccineUTD PCV #13 06/03/2021 , get PCV #20 06/21/2023 Can do RSV vaccine RTC in 3 monthsDo labsER if any symptoms worsenHe and his did verbalize his understand ing of the above Hyperlipidemia 80271647 E78.5 On ASAOn atorvastat in 40mg daily Get labs Type 2 khurram betes mellitus without complication 917128004 E11.9 OV 06/16/2021 :On glimepirid e 4mg bid, d/cOn januvia 100mg daily, d/c, as this has been $300 per monthOn jardiance 10mg daily, d/c as this too has been $300 per month On levemir 40U at bedtimeOn metformin 1000mg bidGet on ozempic, no symptoms or MEN2 syndrome or pancreatic issuesDemo nstrated how to use the ozempic in clinic to him and his [facility] OV 05/27/2022 :On levemir 30U bedtimeOn metformin 1000mg bidOn ozempic, will d/c this as he has lost weightGet a referral to Dr Jackson an A1C doneAdvise d to cut back on carbs, his CG states he does eat sweets and drinks beer OV 09/09/2022 :As per Kasandra he continues to eat 'junk foods' states that he 'brings in cake and beer', advised on diet controlOn levemir 25U at bedtimeSta rt on humolog 10U with every meal, all side effects explained to himOn metformin 1000mg bidNeeds to see Dr Mckinney OV 12/21/2022 :On levemir 25U at bedtimeOn metformin 1000mg bidOn novolog 10U tidDr Hank f/u 02/08/2023 Does need to see the eye MD, needs to do his cataract surgery, will need to get the A1C in better control at least below 8.0 As per he still binges on chocolates and beer, advised to count carbs and calories! OV 06/21/2023 :On metformin 1000mg bidOn novolog 10 U tidOn tresciba 20 [address] pmKeep apt with Dr Mckinney 06/30/2023 OV 12/22/2023 :On metformin 1000mg bidOn novolog 10 tidOn Tresciba 24 U dailyShoul d NOT be on levemir OV 02/14/2024 :On metformin 1000mg bidOn Fiasp U100 10U tidOn Tresciba U100 14-16U at bedtimeMor e diet is neededShou ld not be on the novologGet labs OV 03/15/2024 :On metformin 1000mg bidOn tresciba 14-16 U OV 07/12/2024 :On metforminO n Fiasp 10U tid, wants to get off this as he does not like needles and as per Kasandra he has outbursts when he has to take this, more diet control as he is binging on chocolates and sodOn Tresiba 25 UGet labs OV 11/13/2023 :On metforminO n TresibaGet labsHe has declined any increase in dose of Tresciba or adding any meal time insulin, states that he has been very non compliant with his bedtime Tresciba, as per his Kasandra he has not wanted to take his insulin every dayHe also claims to eat a lot of bread, states that recently he has been eating 'rye bread', advised to control diet! He and Kasandra understand the risks for elevated uncontroll ed diabetes Ex-smoker 6541466 Z87.89 1 Quit 16+ years agoUS AAA: 06/02/2021 : Neg Does well Cataract 831392180 H26.9 Is to get the cataract surgery by Dr Archer is not yet cleared for surgery d/t his elevated A1C OV 06/21/2023 : Now should be able to do his cataract surgery OV 12/13/2023 : Does now sees eye Poor short -term memory 872506548 R41.3 Get a referral to neurology MRI Brain 08/08/2023 Osteoporosis 25591418 M8 1.[address] Mckinney 06/30/2023 , needs to keep apt with endocrine Proteinuria 97942113 R80 .9 Should see nephrology Dyspnea on exertion [address] chest, referral again provided Anemia 196378569 D64.9 Can do more iron in dietGet labs Noncomplia nce with treatment 6184258 Z91.199 He has declined any increase in dose of Tresciba or adding any meal time insulin, states that he has been very non compliant with his bedtime Tresciba, as per his Kasandra he has not wanted to take his insulin every dayHe also claims to eat a lot of bread, states that recently he has been eating 'rye bread', advised to control diet! He and Kasandra understand the risks for elevated uncontroll ed diabetes [id number] Marilu Johnson NP [facility] Pulmonolo gy [place] [phone] 11/28/2024 15:00:03 11/28/2024 16:29:26 Dyspnea on exertion 18178057 R06.09 Heart vs resp?-sent to ERLab work to be doneCAT-10 Mmrc-3PFT for baseline-m ay have had one done-partn er aware need copyAware to use Albuterol inhaler as needed-ok to use when sobEncoura ge patient to remain activefoll ow-up once testing is complete-s ooner for any changes in breathing and increase use of inhaler Irregular heart beat 361 414826 R00.8 EKG done in office-not es a-fib-roseanna ent has no hx-is on Plavix-pat ient sent to ER for evaluation -report to Sridevi ARIZMENDI-call to [facility] unable to see pt-he does have an appointmen t 12/03 Body mass index 25-29 - overweight 492745457 Z68.29 Encourage healthy diet and exercise to improve weightdisc ussed weight effect on sleep and sleep apnea Ex-smoker 5894237 Z87.89 1 Health Concerns Section Related Observation LastModified by Organization Detai ls LastModified Time None Recorded Concern Status LastModified by Organization Details LastModified Time None Recorded Advance Directives Directive Y: Payers Insurance Date Sequence Insurance Name Policy Number Policy Rodriguez Covered Member ID Rodriguez Member ID Guarantor Name 01/17/2025 1 [employer] (MEDICARE REPLACEMENT /ADVANTAGE - PPO) [id number] 1 Mike Young Page [id number] Mike F Page Notes Date Note Type Note Provider Name and Address Organization Details Recorded Time 4 text/html OV 05/19/2021:Here to establish carePa [email or web address] social family and surgical historyHere to discuss above and get labs and wants to better control the diabetesOV 06/16/2021:Here for his routine aptHe feels wellHe did do the labs on 05/21/2021 and has seen the eye MD and is now to get cataract surgeryDenies any complaints and feels he is very active OV 05/27/2022:Here for his routine apt and MWVHe feels wellHe did do the labs on 05/24/2022, and also an ECHO on 04/19/2022He is here with his CG OV 09/09/2022:Here for his f/u apt, he is doing well, he did do the labs on 2OV 12/21/2022:Here for his f/u apt, feels wellDid do the labs OV 06/21/2023: Here for his f/u apt, he feels well today, he did do the labs and is here with his , she is concerned regarding his short term memory and would like to get this 'checked out' as he is worried about PD as she has PD also OV 12/13/2023: Here for his routine apt, he is doing well today OV 02/14/2024:Here for his f/u apt, he is here with his , as per his he has not wanted to see the neurologist or the endocrine MD, she is here to discuss his test reports, she states that he has been non compliant with his diet also, he has not wanted his children involved in his care, as per Kasandra he has not wanted to discuss his care with his son Dawson Mariluz Aguero MD [address] [facility], [address], [place], [address], [facility] [employer] [facility] 02/14/2024 18:27:02 4 text/html OV 05/19/2021:Here to establish carePast [email or web address] social family and surgical historyHere to discuss above and get labs and wants to better control the diabetesOV 06/16/2021:Here for his routine aptHe feels wellHe did do the labs on 05/21/2021 and has seen the eye MD and is now to get cataract surgeryDenies any complaints and feels he is very active OV 05/27/2022:Here for his routine apt and MWVHe feels wellHe did do the labs on 05/24/2022, and also an ECHO on 04/19/2022He is here with his CG OV 09/09/2022:Here for his f/u apt, he is doing well, he did do the labs on 2OV 12/21/2022:Here for his f/u apt, feels wellDid do the labs OV 06/21/2023: Here for his f/u apt, he feels well today, he did do the labs and is here with his , she is concerned regarding his short term memory and would like to get this 'checked out' as he is worried about PD as she has PD also OV 12/13/2023: Here for his routine apt, he is doing well today OV 02/14/2024:Here for his f/u apt, he is here with his , as per his he has not wanted to see the neurologist or the endocrine MD, she is here to discuss his test reports, she states that he has been non compliant with his diet also, he has not wanted his children involved in his care, as per Kasandra he has not wanted to discuss his care with his son Dawson OV 03/15/2024: Here for his follow up, he is here with his Kasandra, he is states that he is doing well, as per his he has not been compliant with his referrals but states that he will now agree to keep the apts, she wants to get the referrals Mariluz Aguero MD [address] [facility], [address], [place], [address], [facility] 03/15/2024 16:36:40 4 text/html OV 05/19/2021:Here to establish careCast [id number] social family and surgical historyHere to discuss above and get labs and wants to better control the diabetesOV 06/16/2021:Here for his routine aptHe feels wellHe did do the labs on 05/21/2021 and has seen the eye MD and is now to get cataract surgeryDenies any complaints and feels he is very active OV 05/27/2022:Here for his routine apt and MWVHe feels wellHe did do the labs on 05/24/2022, and also an ECHO on 04/19/2022He is here with his CG OV 09/09/2022:Here for his f/u apt, he is doing well, he did do the labs on 2OV 12/21/2022:Here for his f/u apt, feels wellDid do the labs OV 06/21/2023: Here for his f/u apt, he feels well today, he did do the labs and is here with his , she is concerned regarding his short term memory and would like to get this 'checked out' as he is worried about PD as she has PD also OV 12/13/2023: Here for his routine apt, he is doing well today OV 02/14/2024:Here for his f/u apt, he is here with his , as per his he has not wanted to see the neurologist or the endocrine MD, she is here to discuss his test reports, she states that he has been non compliant with his diet also, he has not wanted his children involved in his care, as per Kasandra he has not wanted to discuss his care with his son Dawson OV 03/15/2024: Here for his follow up, he is here with his Kasandra, he is states that he is doing well, as per his he has not been compliant with his referrals but states that he will now agree to keep the apts, she wants to get the referrals OV 07/12/2024: Here for his f/u apt, he is doing well today, he did do the labs, he is here with Kasandra, she does state that he is non compliant with his diet Mariluz Aguero MD [address], [address], [place], [address], [place] [facility] 07/12/2024 14:31:48 5 text/html OV 05/19/2021:[facility] HospitalNDMIIHLDCADReviewed social family and surgical historyHere to discuss above and get labs and wants to better control the diabetesOV 06/16/2021:Here for his routine aptHe feels wellHe did do the labs on 05/21/2021 and has seen the eye MD and is now to get cataract surgeryDenies any complaints and feels he is very active OV 05/27/2022:Here for his routine apt and MWVHe feels wellHe did do the labs on 05/24/2022, and also an ECHO on 04/19/2022He is here with his CG OV 09/09/2022:Here for his f/u apt, he is doing well, he did do the labs on 2OV 12/21/2022:Here for his f/u apt, feels wellDid do the labs OV 06/21/2023: Here for his f/u apt, he feels well today, he did do the labs and is here with his , she is concerned regarding his short term memory and would like to get this 'checked out' as he is worried about PD as she has PD also OV 12/13/2023: Here for his routine apt, he is doing well today OV 02/14/2024:Here for his f/u apt, he is here with his , as per his he has not wanted to see the neurologist or the endocrine MD, she is here to discuss his test reports, she states that he has been non compliant with his diet also, he has not wanted his children involved in his care, as per Kasandra he has not wanted to discuss his care with his son Dawson OV 03/15/2024: Here for his follow up, he is here with his Kasandra, he is states that he is doing well, as per his he has not been compliant with his referrals but states that he will now agree to keep the apts, she wants to get the referrals OV 07/12/2024: Here for his f/u apt, he is doing well today, he did do the labs, he is here with Kasandra, she does state that he is non compliant with his diet OV 11/13/2023: Here for his f/u apt, he states that he is doing very well, but he admits to not being compliant with his diet, states that he has also not wanted to take his bedtime insulin, he did do the labs Mariluz Aguero MD [address], [address], [place], [address], [employer] 11/13/2024 14:46:54 text/html DyspneaReported by PatientHPIFor quality, patient reportsdyspnea,can't catch breath, andcan't get a deep breath. For context, patient reportswith activity,at rest,when lying down, andafter episode of chest pain. For aggravating factors, patient reportsactivity. For associated symptoms, patient reportschest pain/discomfort,fatigue,crystal ght gain (15 lbs), andankle swellingbut reportsno palpitations,no orthopnea,no pnd,no fever,no chills,no wheezing,no dietary indiscretion,no sputum production,no hemoptysis, andno dyspepsia. For severity, patient reportsmild. For duration, patient reportssensation/episode lasts 5 minutes. For alleviating factors, patient reportsrest.+[employer] work1.5 ppd-17 yearsnotes more fatigued lately Marilu Johnson NP [address], [address], [place], [address], [facility] 11/29/2024 09:16:54
[2025-10-12 12:42] LABS: Magnesium 1.3 mg/dL (1.6-2.3)
--- NOTE | 2025-10-12 13:50 | PC.NURSE ---
Pt. had another BM in depend, and then wiped both hands in it. Pt. given bed bath with soap and water. Clean linen applied and clean depend. Pt. is A&Ox1.
[2025-10-12 14:14] LABS: Cannabinoid Screen Urine Negative (Negative)
[2025-10-12 15:03] LABS: Ammonia < 9 umol/L (9-30)
[2025-10-12] MEDS: PIPERACILLIN/TAZOBACTAM SOD 3.375 GM in SODIUM CHLORIDE 0.9% IV 50 ML 100 ML IVPB (15:22)
[2025-10-12] MEDS: MAGNESIUM SULF 2 GM/WATER 50ML 2 GM/50 ML BAG IVPB (15:59)
[2025-10-12 16:12] LABS: Alveolar/Arterial O2 Gradient 24.5 mmHg; Fractional Inspired Oxygen 21 %; HCO3 ABG 15.5 mEq/l (22.0-26.0); Oxygen Content ABG 19.5 %vol (16.0-22.0); Oxygen Saturation ABG 96.7 % (95.0-100.0); PCO2 ABG 29.0 mmHg (35.0-45.0); PO2 ABG 90.5 mmHg (80.0-100.0); PO2 FiO2 Ratio Arterial Blood 4.31 %
[2025-10-12 16:16] LABS: Site Drawn LEFT RADIAL
[2025-10-12 16:17] LABS: Liters per Minute 0.0 LPM; Modified Allen's Test Pass
[2025-10-12] MEDS: levoFLOXacin 750 MG/D5W 150 ML 750 MG/150 ML BAG 100 MG IVPB (16:43)
--- NOTE | 2025-10-12 16:47 | PC.NURSE ---
Pt. more alert. Able to tell me his name, birthday, and that he is at a hospital. Remains disoriented to time and situation. Pt. no longer combative. Pt. following commands, calm and cooperative
[2025-10-12 17:27] LABS: Influenza A QL RT-PCR Negative (Negative); Influenza B QL RT-PCR Negative (Negative); RSV RNA, RT-PCR Negative (Negative); SARS-CoV-2 RNA PCR Negative (Negative)
[2025-10-12] MEDS: SODIUM CHLORIDE 0.9% IV 1,000 ML 125 ML IV CONT (18:27)
--- NOTE | 2025-10-12 19:44 | WPCEDHO ---
ED Hand Off Checklist All vitals saved:Y IV Site documented:Y All med administrations documented:Y Triage Note T[facility] Note [facility] 10/12/25 11:02 home. LKW 2130 yesterday evening. Per EMS, woke up to pt. on the floor and called 911 for a lift assist. When EMS arrived on scene, pt. A&Ox0. Baseline A&Ox3 -4. told EMS he is typically a little confused. B.S. 66. 50mL of D10 given IV by EMS en route before pt. self removed his IV. Pt. arrives to [place] A& Ox0. B.S. WNL. Pt. will say hi. Able to follow simple commands. Core temperature 93.6. Pt. is on Eliquis. Scratch to upper lip. Unknown how long pt. was on the floor. Allergies No Known Allergies Allergy (Verified 10/12/25 16:49) Active Medications including assessments/comments Sodium Chloride (Normal Saline Iv) 1,000 mls @ 125 mls/hr IV CONT .Q8H MELIA Last Admin: 10/12/25 18:27 Dose: 125 mls/hr Documented By: KOURTNEY Infusion/Titration Document 10/12/25 18:27 KOURTNEY (Rec: 10/12/25 18:27 KOURTNEY [id number]) Intake IV Site Peripheral Access Right Antecubital Container Volume 1,000 Waste Amount 0 Dosing Infusion Rate 125 Cumulative Dose Not Applicable Increase/Decrease Started Elapsed Time Elapsed Time ( 0m minutes) Administered/Completed Medications Discontinued Medications Sodium Chloride (Normal Saline Iv) 1,000 mls @ 999 mls/hr IV CONT .Q1H1M STA Stop: 10/12/25 12:19 Last Infusion: 10/12/25 12:31 Dose: Infused Documented By: Admin: 10/12/25 11:30 Dose: 999 mls/hr Documented By: KOURTNEY Piperacillin Sod/Tazobactam (Sod 3.375 gm/ Sodium Chloride) 50 mls @ 100 mls/hr IVPB ONCE STA Stop: 10/12/25 14:09 Last Infusion: 10/12/25 15:52 Dose: Infused Documented By: Admin: 10/12/25 15:22 Dose: 100 mls/hr Documented By: KOURTNEY Levofloxacin/Dextrose (Levaquin 750 Mg/D5w 150 Ml) 750 mg in 150 mls @ 100 mls/hr IVPB ONCE STA Stop: 10/12/25 15:09 Last Infusion: 10/12/25 18:13 Dose: Infused Documented By: Admin: 10/12/25 16:43 Dose: 100 mls/hr Documented By: KOURTNEY Magnesium Sulfate (Magnesium Sulf 2 Gm/Water 50ml) 2 gm in 50 mls @ 25 mls/hr IVPB ONCE ONE Stop: 10/12/25 16:44 Last Infusion: 10/12/25 17:59 Dose: Infused Documented By: Admin: 10/12/25 15:59 Dose: 25 mls/hr Documented By: KOURTNEY Co-signed By: RODRIGUEZ Notes 10/12/25 16:47 Nurse Note by Marisabel Field Pt. more alert. Able to tell me his name, birthday, and that he is at a hospital. Remains disoriented to time and situation. Pt. no longer combative. Pt. following commands, calm and cooperative Initialized on 10/12/25 16:47 - END OF NOTE 10/12/25 13:50 (created 10/12/25 14:10) Nurse Note by Marisabel Field Pt. had another BM in depend, and then wiped both hands in it. Pt. given bed bath with soap and water. Clean linen applied and clean depend. Pt. is A&Ox1. Initialized on 10/12/25 14:10 - END OF NOTE 10/12/25 12:00 (created 10/12/25 12:12) Nurse Note by Marisabel Field. Claribel hugger placed on pt. at time of pt. arrival. Pt. not tolerating Claribel hugging and repeatedly pulled it off. Pt not redirecteable. Pt. tolerating warm blankets. Fluid bolus placed on warmer. Initialized on 10/12/25 12:12 - END OF NOTE 10/12/25 11:50 (created 10/12/25 12:10) Nurse Note by Marisabel Field Pt. had BM in bed. Pt. cleaned with soap and water. Linen changed. Depend applied. Initialized on 10/12/25 12:10 - END OF NOTE 10/12/25 11:40 (created 10/12/25 12:09) Nurse Note by Marisabel Field Pt. taken to CT on a monitor with this RN at bedside. Pt. continues to be combative and confused. Breathing equal and unlabored. Initialized on 10/12/25 12:09 - END OF NOTE 10/12/25 11:30 (created 10/12/25 12:12) Nurse Note by Marisabel Field Dr. notified of critical pt. Initialized on 10/12/25 12:12 - END OF NOTE Interventions/Assessments IV / Saline Lock, Insert Start: 10/12/25 10:58 Freq: Status: Active Protocol: Document 10/12/25 16:40 KJT (Rec: 10/12/25 16:41 KJT [id number]) IV Assessment Peripheral Access Left Forearm IV Catheter Access Initiated IV Insertion Date 10/12/25 IV Insertion Time 16:41 Catheter Gauge 20 IV Insertion 2 Attempts Ultrasound Used for No Placement IV Site Assessment WNL IV Care and WNL Maintenance PA: Cardiovascular Assessment Start: 10/12/25 10:58 Freq: Status: Active Protocol: Document 10/12/25 12:00 KJT (Rec: 10/12/25 15:39 KJT [id number]) Cardiovascular Assessment Cardiovascular None Symptoms Skin Description Cool Jugular Vein None Distention PA: Neurological Assessment Start: 10/12/25 10:58 Freq: Status: Active Protocol: Document 10/12/25 12:00 KJT (Rec: 10/12/25 15:39 KJT [id number]) Neurological Assessment Level of Alert Consciousness Arousable to Verbal Orientation Disoriented to Person,Disoriented to Place,Disoriented to Time Neurological Confusion,Weakness, General Symptoms Hallucination Type None Behavior Aggressive,Combative Patient Unable to Comprehend Comprehension Memory Description Setter Up Impaired,Short Term Impaired Ability to Maintain Unable to Assess Balance Facial Symmetry Symmetrical Speech Pattern Clear Wylie Coma Scale Eyes Open Verbal Disoriented Motor Localizes Pain Wylie Coma Total 13 Score PA: Respiratory Assessment Start: 10/12/25 10:58 Freq: Status: Active Protocol: Document 10/12/25 12:00 KJT (Rec: 10/12/25 15:39 KJT [id number]) Respiratory Assessment Symptoms None Effort Normal Pattern Regular Depth Normal Chest Expansion Symmetrical Cough Description None Last Vital Signs Temperature 98.3 F 10/12/25 19:42 Pulse Rate 107 H 10/12/25 19:42 Respiratory Rate 28 H 10/12/25 19:42 Pulse Oximetry 98 10/12/25 19:42 Blood Pressure 115/81 10/12/25 19:42 Blood Pressure Mean 92 10/12/25 19:42 Blood Pressure Position Sitting 10/12/25 16:40 Oxygen Delivery Room Air 10/12/25 11:02 Last Result - Abnormals Only WBC 14.2 K/mm3 (4.5-10.0) H 10/12/25 11:27 Neut % (Auto) 90.0 % (45.5-73.1) H 10/12/25 11:27 Lymph % (Auto) 5.1 % (18.3-44.2) L 10/12/25 11:27 Baso % (Auto) 0.1 % (0.2-1.2) L 10/12/25 11:27 Lymph # (Auto) 0.73 K/mm3 (0.9-3.2) L 10/12/25 11:27 Abs Immat Gran (auto) 0.06 K/mm3 (0.00-0.031) H 10/12/25 11:27 Absolute Neuts (auto) 12.8 K/mm3 (1.3-6.7) H 10/12/25 11:27 ABG pH 7.346 (7.350-7.450) L 10/12/25 13:40 ABG pCO2 29.0 mmHg (35.0-45.0) L 10/12/25 13:40 ABG HCO3 15.5 mEq/l (22.0-26.0) L 10/12/25 13:40 Sodium 136 mmol/L (137-145) L 10/12/25 11:27 Chloride 97 mmol/L (98-107) L 10/12/25 11:27 Carbon Dioxide 21 mmol/L (22-30) L 10/12/25 11:27 Anion Gap 18 mmol/L (4-12) H 10/12/25 11:27 BUN 30 mg/dL (9-20) H 10/12/25 11:27 POC Capillary Glucose 115 mg/dl (65-105) H 10/12/25 18:47 Lactic Acid 2.7 mmol/L (0.7-2.0) H 10/12/25 12:25 Magnesium 1.3 mg/dL (1.6-2.3) L 10/12/25 11:27 Alkaline Phosphatase 28 U/L (38-126) L 10/12/25 11:27 Ammonia < 9 umol/L (9-30) L 10/12/25 14:42 Urine Protein 2+ mg/dL (Negative) H 10/12/25 11:27 Urine Ketones 1+ mg/dL (Negative) H 10/12/25 11:27
--- NOTE | 2025-10-12 22:39 | PM.IMHP2 ---
H&P: HPI History of Present Illness Date/Time: 10/12/25 22:39 Chief Complaint: Found confused on floor Narrative: 74-year-old male with a past medical history of mild cognitive impairment, CVA, CABG, insulin-dependent diabetes mellitus, essential hypertension and chronic atrial fibrillation on Eliquis who presented to the ER from home via EMS due to being found on the floor confused. Patient's last known well was on the around 21:30 when the patient came home drunk. The patient has significant other reports the ER provider that patient had when out that night and had quite a bit of alcohol. He he had been stumbling when he came home. Found him on the floor next to the bed. The patient had had prior symptoms a year ago after drinking too much alcohol. The significant other felt that the patient was likely hung over. When EMS arrived to the home the patient was alert but oriented times 0. By the time I evaluated the patient he was alert oriented to person, place, month but was confused as to the year and could not recall most recent events. He reports that his ex-girlfriend lives with him with air no longer emotionally involved. He states he did go to a [employer] democr[employer] and drink too much. He states that is not unusual for him to have episodes of passing out and on consciousness after drinking heavily. He does not recall exactly how much alcohol he he drink. He states that he usually only drinks once a month at most. He does not remember anything after getting home last night. He denies any history of seizures. At the time my evaluation the patient did have large area of hematoma to both sides of his tongue. He denied any pain to his tongue and was not having any difficulty speaking. He does admit that he does have chronic memory impairment and is forgetful. Patient denied having any abdominal pain or diarrhea but was incontinent of stool in the ER and was reaching into his depends in smearing stool everywhere. He still denies any abdominal pain. He reports that he has to urinate constantly and does not feel like he empties his bladder completely. He denies any dysuria. In the ER he was noted to be retaining urine and a Alfonso catheter was placed. Urine within the catheter bag was turbid and somewhat tea colored in appearance. CT of the chest abdomen pelvis with contrast demonstrated cardiomegaly with postoperative CABG changes, mild fluid congestion in the lungs with minimal bilateral pleural effusions and small patchy airspace opacity left lower lobe which could be consistent with pneumonia or pulmonary edema. Patient denies any lower extremity swelling or orthopnea. He has been having increased cough for the last day or so. He denies any fevers or chills. Denies any chest pain or palpitations. He reports that he sees bible worker through [facility] at [facility]. Review of Systems Review of Systems: 12 systems were reviewed with pertinent positives and negatives per HPI. Except as documented in the HPI, all other systems were reviewed and are negative. Although wrist system was not the most reliable given patient's confusion. [facility] Past Medical History Medical History (Updated 10/13/25 @ 04:39 by Angela Howard DO) BPH (benign prostatic hyperplasia) Insulin dependent diabetes mellitus Systolic heart failure Coronary artery disease Chronic anticoagulation Chronic atrial fibrillation Surgical History Surgical History (Updated 10/12/25 @ 23:12 by Angela Howard DO) Hx of CABG Family History Family History (Updated 10/13/25 @ 04:39 by Angela Howard DO) Other Unknown family medical history Social History Social History (Updated 10/13/25 @ 04:47 by Angela Howard DO) Social History: Patient reports he lives in his own home and his ex girlfriend lives with him. He has a daughter and a son. He is a former smoker but is unclear when he quit smoking as he told me that he quit smoking in 2026 (today's date 10/12/25). He reports that he drinks about once per month. When he drinks he drinks heavily. 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 Code status: DNR/DNI per chart. Patient is not the most reliable historian and states that he would defer his decision making to his ex-girlfriend [place]andra [place]. Smoking status: Former smoker Tobacco type: cigarettes Second hand tobacco smoke exposure: Yes Alcohol intake: current Substance use: unknown Substance use type: unknown Spiritual care concerns: No Meds Home Medications and Allergies Home Medications ?Medication ?Instructions ?Recorded ?Confirmed ?Type apixaban 5 mg tablet (Eliquis) 5 mg PO BID stents 10/12/25 10/12/25 History atorvastatin 40 mg tablet 40 mg PO QPM 10/12/25 10/12/25 History carvedilol 6.25 mg tablet 6.25 mg PO BID 10/12/25 10/12/25 History dapagliflozin propanediol 10 mg 10 mg PO DAILY 10/12/25 10/12/25 History tablet (Farxiga) dofetilide 125 mcg capsule 125 mcg PO DAILY 10/12/25 10/12/25 History furosemide 40 mg tablet 40 mg PO DAILY 10/12/25 10/12/25 History insulin degludec 100 unit/mL 24 unit subcut HS 10/12/25 10/12/25 History subcutaneous solution (Tresiba U-100 Insulin) metformin 1,000 mg tablet 1,000 mg PO BID 10/12/25 10/12/25 History sacubitril 24 mg-valsartan 26 mg 1 tablet PO BID 10/12/25 10/12/25 History tablet Allergies Allergy/AdvReac Type Severity Reaction Status Date / Time No Known Allergies Allergy Verified 10/13/25 00:44 Vital Signs Vital Signs - 24 hr 10/12/25 11:02 10/12/25 12:29 10/12/25 14:11 Temperature 93.6 F L 94.5 F L 96.3 F L Pulse Rate 104 H 98 85 Respiratory Rate 19 18 16 Blood Pressure 167/94 H 167/87 H 156/72 H Pulse Oximetry 95 93 95 Oxygen Delivery Room Air 10/12/25 15:40 10/12/25 16:40 10/12/25 19:42 Temperature 97.5 F L 98 F 98.3 F Pulse Rate 85 106 H 107 H Respiratory Rate 16 19 28 H Blood Pressure 134/62 126/80 115/81 Pulse Oximetry 98 98 98 Oxygen Delivery 10/12/25 20:00 Temperature 97.8 F Pulse Rate 57 L Respiratory Rate 18 Blood Pressure 124/60 Pulse Oximetry 100 Oxygen Delivery Exam Const: Other: Obese, disheveled will/poor hygiene, appears stated age HENMT: Other: Mucous membranes are dry, large hematomas to the lateral edges of the tongue bilaterally, no oral pharyngeal erythema, fair dentition, crowded posterior oropharynx Eyes: Other: Pupils are equal and reactive with bilateral lens implants noted bilaterally, no scleral icterus Neck: Other: Left thyroid enlargement, large neck circumference Resp: Other: Clear to auscultation bilaterally, no increased work of breathing Cardio: Other: Irregularly irregular, regular rate, 2+ bilateral radial pedal pulses GI: Other: Obese, soft, nontender, normoactive bowel sounds : Other: Alfonso catheter in place with over 500 mL of turbid yellow to brown urine in the Alfonso catheter bag Skin: Other: Coban wrapped around the dorsum of the left hand and the dorsum of the right arm bandages not removed to evaluate skin, no diabetic foot wounds, normal cap refill Neuro: Other: Alert oriented to person, place, month, name of the current president confused as to the years states the years 1994 and that he quit smoking in 2026, speech is clear fluent in the patient carries a conversation but is overall poor historian, he has some asymmetric strength and social media content specialist strength but reports that he had a prior CVA but he cannot remember when he had this or his residual deficits, no tremor, intact sensation Extrem: Other: 4/5 social media content specialist strength on the left 5/5 social media content specialist strength on the right patient is right handed, no clubbing, cyanosis or edema, moves all extremities equally Psych: Other: Pleasant and cooperative but intermittently confused, fair to poor judgment and insight Results Labs Labs: Laboratory Tests 10/12/25 11:27 10/12/25 11:27 10/12/25 10/12/25 10/12/25 11:00 11: 12:25 WBC 14.2 H RBC 4.96 Hgb 15.7 Hct 46.7 MCV 94.2 MCH 31.7 MCHC 33.6 RDW 12.3 Plt Count 268 MPV 10.3 Immature Gran % (Auto) 0.4 Neut % (Auto) 90.0 H Lymph % (Auto) 5.1 L Lake % (Auto) 4.4 Eos % (Auto) 0.0 Baso % (Auto) 0.1 L Lymph # (Auto) 0.73 L Lake # (Auto) 0.6 Eos # (Auto) 0.0 Baso # (Auto) 0.0 Abs Immat Gran (auto) 0.06 H Absolute Neuts (auto) 12.8 H Absolute Nucleated RBC 0.000 Nucleated RBC % 0.0 PT 14.1 INR 1.1 APTT 31.3 Puncture Site ABG pH ABG pCO2 ABG pO2 ABG PO2/FiO2 Ratio ABG HCO3 ABG O2 Saturation ABG O2 Content ABG Base Excess A-a Gradient Oxyhemoglobin Total Hemoglobin O2 Delivery Device O2 Liters/Min FiO2 Sodium 136 L Potassium 4.7 Chloride 97 L Carbon Dioxide 21 L Anion Gap 18 H BUN 30 H Creatinine 0.94 Estim Creat Clear Calc Not Reportable Estimated GFR > 60 Glucose 102 POC Capillary Glucose 96 Lactic Acid 2.7 H Calcium 9.3 Magnesium 1.3 L Total Bilirubin 0.7 AST 59 ALT 34 Alkaline Phosphatase 28 L Ammonia C-Reactive Protein < 0.5 Total Protein 7.8 Albumin 4.7 Urine Color Yellow Urine Appearance Clear Urine pH 5.0 Ur Specific Candor 1.014 Urine Protein 2+ H Urine Glucose (UA) Negative Urine Ketones 1+ H Ur Blood (Man) Trace Urine Nitrate Negative Urine Bilirubin Negative Urine Urobilinogen 0.2 Add Ur Microanalysis Reviewed Leukocyte Esterase Rfl Negative Urine RBC 0-2 Urine WBC 0-5 Ur Squamous Epith Cells None seen Urine Bacteria None seen Urine Casts 6-10 Hyaline Casts Present Urine Opiates Screen Negative Urine Methadone Screen Negative Ur Barbiturates Screen Negative Ur Phencyclidine Scrn Negative Ur Amphetamine Screen Negative U Benzodiazepines Scrn Negative Urine Cocaine Screen Negative U Cannabinoids Screen Negative Ethyl Alcohol < 10 Influenza A (RT-PCR) Influenza B (RT-PCR) RSV (RT-PCR) SARS-CoV-2 RNA (RT-PCR) 10/12/25 10/12/25 10/12/25 12:33 13:40 14:42 WBC RBC Hgb Hct MCV MCH MCHC RDW Plt Count MPV Immature Gran % (Auto) Neut % (Auto) Lymph % (Auto) Lake % (Auto) Eos % (Auto) Baso % (Auto) Lymph # (Auto) Lake # (Auto) Eos # (Auto) Baso # (Auto) Abs Immat Gran (auto) Absolute Neuts (auto) Absolute Nucleated RBC Nucleated RBC % PT INR APTT Puncture Site Left radial ABG pH 7.346 L ABG pCO2 29.0 L ABG pO2 90.5 ABG PO2/FiO2 Ratio 4.31 ABG HCO3 15.5 L ABG O2 Saturation 96.7 ABG O2 Content 19.5 ABG Base Excess -8.6 A-a Gradient 24.5 Oxyhemoglobin 95.4 Total Hemoglobin 14.5 O2 Delivery Device Room air O2 Liters/Min 0.0 FiO2 21 Sodium Potassium Chloride Carbon Dioxide Anion Gap BUN Creatinine Estim Creat Clear Calc Estimated GFR Glucose POC Capillary Glucose 116 H Lactic Acid Calcium Magnesium Total Bilirubin AST ALT Alkaline Phosphatase Ammonia < 9 L C-Reactive Protein Total Protein Albumin Urine Color Urine Appearance Urine pH Ur Specific Candor Urine Protein Urine Glucose (UA) Urine Ketones Ur Blood (Man) Urine Nitrate Urine Bilirubin Urine Urobilinogen Add Ur Microanalysis Leukocyte Esterase Rfl Urine RBC Urine WBC Ur Squamous Epith Cells Urine Bacteria Urine Casts Hyaline Casts Urine Opiates Screen Urine Methadone Screen Ur Barbiturates Screen Ur Phencyclidine Scrn Ur Amphetamine Screen U Benzodiazepines Scrn Urine Cocaine Screen U Cannabinoids Screen Ethyl Alcohol Influenza A (RT-PCR) Influenza B (RT-PCR) RSV (RT-PCR) SARS-CoV-2 RNA (RT-PCR) 10/12/25 10/12/25 10/12/25 16:46 18:47 21:05 WBC RBC Hgb Hct MCV MCH MCHC RDW Plt Count MPV Immature Gran % (Auto) Neut % (Auto) Lymph % (Auto) Lake % (Auto) Eos % (Auto) Baso % (Auto) Lymph # (Auto) Lake # (Auto) Eos # (Auto) Baso # (Auto) Abs Immat Gran (auto) Absolute Neuts (auto) Absolute Nucleated RBC Nucleated RBC % PT INR APTT Puncture Site ABG pH ABG pCO2 ABG pO2 ABG PO2/FiO2 Ratio ABG HCO3 ABG O2 Saturation ABG O2 Content ABG Base Excess A-a Gradient Oxyhemoglobin Total Hemoglobin O2 Delivery Device O2 Liters/Min FiO2 Sodium Potassium Chloride Carbon Dioxide Anion Gap BUN Creatinine Estim Creat Clear Calc Estimated GFR Glucose POC Capillary Glucose 115 H 99 Lactic Acid 1.2 Calcium Magnesium Total Bilirubin AST ALT Alkaline Phosphatase Ammonia C-Reactive Protein Total Protein Albumin Urine Color Urine Appearance Urine pH Ur Specific Candor Urine Protein Urine Glucose (UA) Urine Ketones Ur Blood (Man) Urine Nitrate Urine Bilirubin Urine Urobilinogen Add Ur Microanalysis Leukocyte Esterase Rfl Urine RBC Urine WBC Ur Squamous Epith Cells Urine Bacteria Urine Casts Hyaline Casts Urine Opiates Screen Urine Methadone Screen Ur Barbiturates Screen Ur Phencyclidine Scrn Ur Amphetamine Screen U Benzodiazepines Scrn Urine Cocaine Screen U Cannabinoids Screen Ethyl Alcohol Influenza A (RT-PCR) Negative Influenza B (RT-PCR) Negative RSV (RT-PCR) Negative SARS-CoV-2 RNA (RT-PCR) Negative Impressions Cervical Spine CT 10/12/25 11:42 IMPRESSION: HEAD: 1. No acute intracranial findings. C-SPINE: 1. No acute fracture. Head CT 10/12/25 11:42 IMPRESSION: HEAD: 1. No acute intracranial findings. C-SPINE: 1. No acute fracture. Chest X-Ray 10/12/25 12:05 IMPRESSION: 1. No definite acute cardiopulmonary findings given portable technique. Chest/Abdomen/Pelvis CT 10/12/25 15:22 IMPRESSION: 1. Cardiomegaly with postoperative changes of coronary bypass. Mild congestion of lung bases with minimal bilateral pleural effusion. Small patchy airspace opacity of left lower lobe noted. Possible patchy of pneumonia versus pulmonary edema. 2. Below the diaphragm, no definite acute findings in the abdomen and pelvis. Other findings as mentioned above including severe calcific changes of abdominal aorta, iliac arteries and superior mesenteric and renal arteries. EKG:Test Date: 2025-10-12 12:23:35 Measurements Intervals [place] Rate: 101 P: 0 OR: 0 QRS: -85 QRSD: 149 T: 74 QT: 390 QTc: 506 Interpretive Statements ATRIAL FIBRILLATION WITH RAPID VENTRICULAR RESPONSE RIGHT BUNDLE BRANCH BLOCK LEFT ANTERIOR FASCICULAR BLOCK BASELINE ARTIFACT- I, II, III, AVL, V2, V4 ABNORMAL ECG No previous ECG available for comparison All imaging and EKGs personally reviewed and interpreted. And unless stated otherwise agree with radiologic and cardiology interpretation. Quality VTE Prophylaxis VTE prophylaxis: pharmacologic ordered (Resume home Eliquis.) Assessment and Plan Assessment and plan (1) Left lower lobe pneumonia: Qualifiers: Aspiration pneumonia type: unspecified Pneumonia type: aspiration pneumonia Qualified Code(s): J69.0 - Pneumonitis due to inhalation of food and vomit Code(s): J18.9 - Pneumonia, unspecified organism Status: Acute (2) Hypothermia: Qualifiers: Encounter type: sequela Qualified Code(s): T68.XXXS - Hypothermia, sequela Code(s): T68.XXXA - Hypothermia, initial encounter Status: Acute (3) Insulin dependent diabetes mellitus: Status: Acute (4) Hypomagnesemia: Code(s): E83.42 - Hypomagnesemia Status: Acute (5) Chronic anticoagulation: Code(s): Z79.01 - adjunct faculty for medical terminology (current) use of anticoagulants Status: Acute (6) Chronic atrial fibrillation: Code(s): I48.20 - Chronic atrial fibrillation, unspecified Status: Acute (7) SIRS (systemic inflammatory response syndrome): Code(s): R65.10 - Systemic inflammatory response syndrome (SIRS) of non-infectious origin without acute organ dysfunction Status: Acute (8) Alcohol intoxication: Qualifiers: Complication of substance-induced condition: uncomplicated Qualified Code(s): F10.920 - Alcohol use, unspecified with intoxication, uncomplicated Code(s): F10.929 - Alcohol use, unspecified with intoxication, unspecified Status: Acute (9) BPH with urinary obstruction: Code(s): N40.1 - Benign prostatic hyperplasia with lower urinary tract symptoms; N13.8 - Other obstructive and reflux uropathy Status: Acute Plan The patient presented with altered mental status likely due to initial alcohol intoxication that is since resolved but the patient may have aspirated while intoxicated resulting in pneumonia. The patient was also found lying on the floor and between acute infection a and cold exposure resulted and hypothermia. Patient met SIRS criteria with hypothermia, tachycardia, tachypnea, leukocytosis and lactic acidosis. Tachycardia, lactic acidosis and tachypnea have resolved with antibiotic administration and IV fluids. The patient was started on empiric antibiotic therapy with Levaquin and Zosyn in the ER. However, patient does have QT prolongation on EKG to Levaquin was discontinued. Will also avoid anti emetics due to QT prolongation. The patient does not need pseudomonal coverage for possible aspiration pneumonia subsequently a change the patient's antibiotics to Unasyn. Patient did have blood cultures obtained in the ER which are pending. Given the patient's history of systolic congestive heart failure he only received 1 L fluid bolus in the ER. And the patient was started on maintenance IV fluids at 125 mL an hour but given heart failure history L discontinue fluids at this time. Will encourage oral fluid intake since patient is encephalopathy has improved/resolved. Encephalopathy was likely due to intoxication hypothermia and possible underlying infection. Sounds like patient does have some mild cognitive but impairment at baseline with patient's significant other reporting the patient is usually alert orient times 3-4 with moments of confusion. Patient would benefit from outpatient neuro cognitive testing if not previously performed. Will resume the patient's home Coreg, Entresto and diuretic therapy in a.m.. Patient does have a history of insulin-dependent diabetes and is currently euglycemic when he came into the ER his blood sugars were lower end of normal. His possible patient may have had some hypoglycemia while unconscious/intoxicated. Will start the patient on a consistent carbohydrate diet. Will decrease the patient's Tresiba down to 16 units night[address] and will place patient on moderate dose sliding scale insulin with Accu-Cheks a.c. HS and p.r.n. hypoglycemia protocol. Will hold patient's home Farxiga and metformin. Will check CK with a.m. labs. Given thyromegaly will also check TSH with a.m. labs. Will also check B12 and folic acid given reports of confusion and suspected unsteady gait is patient may have underlying diabetic neuropathy and or vitamin deficiency related neuropathy. Patient does have significant bruising to his tongue consistent with biting his tongue. It is unclear if this may have occurred when he fell resulting and biting injury or if he could have possibly had a seizure. He does have a history of prior CVA and could have a lowered seizure threshold but the use of alcohol would theoretically decreased risk of seizure by sedative affect. I am more suspicious that the patient may have fell in struck his head or passed out due to his alcohol use. Will continue to monitor patient's cardiac rhythm on telemetry. Will monitor neuro checks q.4 hours. Will treat underlying causes as discussed above. Patient is having urinary retention and denies known diagnosis of BPH but is clearly having BPH symptoms. Will start the patient on Flomax and attempt voiding trial likely an outpatient setting. Patient has been placed on fall precautions. Patient has been admitted as observation status. MEDICAL DECISION MAKING NARRATIVE -Spoke with the ED provider in detail regarding patient's evaluation, workup and management -Patient seen and examined at bedside -Collaborated with patient's nurse at the bedside in detail and addressed all concerns -Labs, electrolytes, radiology, investigations and test results personally reviewed and interpreted unless otherwise specified -ED/Consult/Nursing/Ancilliary notes on the chart reviewed and appreciated -applicable past medical records and labs were reviewed and unless stated otherwise. -Spoke with patient at bedside and diagnosis, plan of care was discussed and questions answered. Hospitalist MIPS Advance Care Plan I have confirmed that the patient's Advanced Care Plan is present, code status is documented, or surrogate decision maker is listed in patient medical record.: Yes Medication Reconciliation I have utilized all available resources to obtain, update and review the patients current medications (includes all prescriptions, OTC, herbals, cannabis, and nutritional supplements).: Yes
[2025-10-12] MEDS: AMPICILLIN SODIUM/SULBACTAM 3 GM in SODIUM CHLORIDE 0.9% IV 100 ML 200 ML IVPB (23:51)
[2025-10-13] VITALS (9 sets, daily range): BP systolic 95–137; BP diastolic 60–83; PULSE 57–132; RESP 18–19; TEMP 36.2–37.3; O2SAT 96–100; BMI 27.9; BMI 27.3
[2025-10-13] MEDS: AMPICILLIN SODIUM/SULBACTAM 3 GM in SODIUM CHLORIDE 0.9% IV 100 ML 200 ML IVPB ×3 (05:03→17:04)
[2025-10-13 06:28] LABS: Hematocrit 36.5 % (42.0-52.0); Hemoglobin 12.7 g/dL (14.0-18.0); Mean Corpuscular HGB Conc 34.8 g/dl (32-36); Mean Corpuscular Hemoglobin 31.9 pg (26-34); Mean Corpuscular Volume 91.7 fl (80-100); Platelet Count Result 216 k/mm3 (150-375); Red Blood Count 3.98 M/mm3 (4.6-6.20); White Blood Count 16.0 K/mm3 (4.5-10.0)
[2025-10-13 06:51] LABS: Hemoglobin A1C 8.3 % (<5.7)
[2025-10-13 06:56] LABS: Anion Gap 11 mmol/L (4-12); Band Neutrophils Percent 2 % (0-6); Basophils Absolute Manual 0.00 K/mm3 (0.0-0.1); Basophils Percent Manual 0 % (0-1); Blood Urea Nitrogen 25 mg/dL (9-20); Calcium 8.6 mg/dL (8.4-10.2); Carbon Dioxide 21 mmol/L (22-30); Chloride 104 mmol/L (98-107); Creatine Kinase 520 U/L (55-170); Eosinophils Absolute Manual 0.00 K/mm3 (0.02-0.50); Eosinophils Percent Manual 0 % (0-4); Estimated CRCL calculation 49 ml/min; Estimated Glomerular Filt Rate > 60; Glucose 56 mg/dL (65-110); Lymphocytes Absolute Manual 1.28 K/mm3 (1.1-4.5); Lymphocytes Percent Manual 8 % (18-44); Magnesium 1.9 mg/dL (1.6-2.3); Monocytes Absolute Manual 1.12 K/mm3 (0.1-0.90); Monocytes Percent Manual 7 % (3-9); Neutrophils Absolute Manual 13.60 K/mm3 (1.3-6.7); Neutrophils Percent Manual 83 % (46-73); Potassium 4.7 mmol/L (3.4-5.0); Sodium 136 mmol/L (137-145); Total Cells Counted 100
[2025-10-13 06:57] LABS: Schistocytes None Seen
[2025-10-13 07:14] LABS: Thyroid Stimulating Hormone Reflex 1.250 uIU/mL (0.465-4.68)
[2025-10-13 08:06] LABS: Vitamin B12 745.0 pg/mL (239-931)
[2025-10-13] MEDS: SACUBITRIL/VALSARTAN 24-26 MG TABLET 1 TAB PO ×2 (08:33→20:56)
[2025-10-13] MEDS: FUROSEMIDE 40 MG TABLET PO (08:33)
[2025-10-13] MEDS: APIXABAN 5 MG TABLET PO ×2 (08:33→20:56)
[2025-10-13] MEDS: TAMSULOSIN HCL 0.4 MG CAPSULE PO (08:33)
--- NOTE | 2025-10-13 08:37 | PM.IMPN2 ---
Assessment and Plan Assessment and Plan (1) Left lower lobe pneumonia: Qualifiers: Pneumonia type: aspiration pneumonia Aspiration pneumonia type: unspecified Qualified Code(s): J69.0 - Pneumonitis due to inhalation of food and vomit Code(s): J18.9 - Pneumonia, unspecified organism Status: Acute (2) Hypothermia: Qualifiers: Encounter type: sequela Qualified Code(s): T68.XXXS - Hypothermia, sequela Code(s): T68.XXXA - Hypothermia, initial encounter Status: Acute (3) Insulin dependent diabetes mellitus: Status: Acute (4) Hypomagnesemia: Code(s): E83.42 - Hypomagnesemia Status: Acute (5) Chronic anticoagulation: Code(s): Z79.01 - [facility] (current) use of anticoagulants Status: Acute (6) Chronic atrial fibrillation: Code(s): I48.20 - Chronic atrial fibrillation, unspecified Status: Acute (7) SIRS (systemic inflammatory response syndrome): Code(s): R65.10 - Systemic inflammatory response syndrome (SIRS) of non-infectious origin without acute organ dysfunction Status: Acute (8) Alcohol intoxication: Qualifiers: Complication of substance-induced condition: uncomplicated Qualified Code(s): F10.920 - Alcohol use, unspecified with intoxication, uncomplicated Code(s): F10.929 - Alcohol use, unspecified with intoxication, unspecified Status: Acute (9) BPH with urinary obstruction: Code(s): N40.1 - Benign prostatic hyperplasia with lower urinary tract symptoms; N13.8 - Other obstructive and reflux uropathy Status: Acute Plan The patient presented with altered mental status likely due to initial alcohol intoxication that is since resolved but the patient may have aspirated while intoxicated resulting in pneumonia. The patient was also found lying on the floor and between acute infection a and cold exposure resulted and hypothermia. Patient met SIRS criteria with hypothermia, tachycardia, tachypnea, leukocytosis and lactic acidosis. Tachycardia, lactic acidosis and tachypnea have resolved with antibiotic administration and IV fluids. The patient was started on empiric antibiotic therapy with Levaquin and Zosyn in the ER. However, patient does have QT prolongation on EKG to Levaquin was discontinued. Will also avoid anti emetics due to QT prolongation. The patient does not need pseudomonal coverage for possible aspiration pneumonia subsequently a change the patient's antibiotics to Unasyn. Patient did have blood cultures obtained in the ER which are pending. Given the patient's history of systolic congestive heart failure he only received 1 L fluid bolus in the ER. And the patient was started on maintenance IV fluids at 125 mL an hour but given heart failure history L discontinue fluids at this time. Will encourage oral fluid intake since patient is encephalopathy has improved/resolved. Encephalopathy was likely due to intoxication hypothermia and possible underlying infection. Sounds like patient does have some mild cognitive but impairment at baseline with patient's significant other reporting the patient is usually alert orient times 3-4 with moments of confusion. Patient would benefit from outpatient neuro cognitive testing if not previously performed. Will resume the patient's home Coreg, Entresto and diuretic therapy in a.m.. Will also check B12 and folic acid given reports of confusion and suspected unsteady gait is patient may have underlying diabetic neuropathy and or vitamin deficiency related neuropathy. Patient does have significant bruising to his tongue consistent with biting his tongue. It is unclear if this may have occurred when he fell resulting and biting injury or if he could have possibly had a seizure. He does have a history of prior CVA and could have a lowered seizure threshold but the use of alcohol would theoretically decreased risk of seizure by sedative affect. I am more suspicious that the patient may have fell in struck his head or passed out due to his alcohol use. Will continue to monitor patient's cardiac rhythm on telemetry. Will monitor neuro checks q.4 hours. Will treat underlying causes as discussed above. Patient is having urinary retention and denies known diagnosis of BPH but is clearly having BPH symptoms. Will start the patient on Flomax and attempt voiding trial likely an outpatient setting. - Patient does have a history of insulin-dependent diabetes and is currently euglycemic when he came into the ER his blood sugars were lower end of normal. His possible patient may have had some hypoglycemia while unconscious/intoxicated. Will start the patient on a consistent carbohydrate diet. Will decrease the patient's Tresiba down to 16 units [address] and will place patient on moderate dose sliding scale insulin with Accu-Cheks a.c. HS and p.r.n. hypoglycemia protocol. Will hold patient's home Farxiga and metformin. - hypoglycemia this morning-59, rechecked after [id number] -will decrease lantus to 10 units at hs from 16 and monitor close;y to avoid hypoglycemic episodes Ck elevated 520- will continue IV fluids for now Patient has been placed on fall precautions. Patient has been admitted as observation status. Medical Record Review I have reviewed the following patient records and this information was taken into consideration when formulating the assessment and plan.: previous labs Time Spent With Patient Time with patient: Greater than 35 minutes Subjective Date/time seen: 10/13/25 08:37 Interval history: 74-year-old male with a past medical history of mild cognitive impairment, CVA, CABG, insulin-dependent diabetes mellitus, essential hypertension and chronic atrial fibrillation on Eliquis who presented to the ER from home via EMS due to being found on the floor confused. Patient's last known well was on the around 21:30 when the patient came home drunk. The patient has significant other reports the ER provider that patient had when out that night and had quite a bit of alcohol. He he had been stumbling when he came home. Found him on the floor next to the bed. The patient had had prior symptoms a year ago after drinking too much alcohol. The significant other felt that the patient was likely hung over. When EMS arrived to the home the patient was alert but oriented times 0. By the time I evaluated the patient he was alert oriented to person, place, month but was confused as to the year and could not recall most recent events. He reports that his ex-girlfriend lives with him with air no longer emotionally involved. He states he did go to a [employer] party and drink too much. He states that is not unusual for him to have episodes of passing out and on consciousness after drinking heavily. He does not recall exactly how much alcohol he he drink. He states that he usually only drinks once a month at most. He does not remember anything after getting home last night. He denies any history of seizures. At the time my evaluation the patient did have large area of hematoma to both sides of his tongue. He denied any pain to his tongue and was not having any difficulty speaking. He does admit that he does have chronic memory impairment and is forgetful. Patient denied having any abdominal pain or diarrhea but was incontinent of stool in the ER and was reaching into his depends in smearing stool everywhere. He still denies any abdominal pain. He reports that he has to urinate constantly and does not feel like he empties his bladder completely. He denies any dysuria. In the ER he was noted to be retaining urine and a Alfonso catheter was placed. Urine within the catheter bag was turbid and somewhat tea colored in appearance. CT of the chest abdomen pelvis with contrast demonstrated cardiomegaly with postoperative CABG changes, mild fluid congestion in the lungs with minimal bilateral pleural effusions and small patchy airspace opacity left lower lobe which could be consistent with pneumonia or pulmonary edema. Patient denies any lower extremity swelling or orthopnea. He has been having increased cough for the last day or so. He denies any fevers or chills. Denies any chest pain or palpitations. 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. Pt is seen and examined. RN reported elevated HR this morning, 11--130's PT denies any chest pain, sob. Alert and oriented. He appears comfortable, denies any visual or auditory hallucination, no tremors. Denies any drug use in the past. Review of Systems Review of Systems: 12 systems were reviewed with pertinent positives and negatives per HPI. Except as documented in the HPI, all other systems were reviewed and are negative. Although wrist system was not the most reliable given patient's confusion. Exam Const: General: comfortable HENMT: Other: Mucous membranes are dry, large hematomas to the lateral edges of the tongue bilaterally, no oral pharyngeal erythema, fair dentition Eyes: Other: Pupils are equal and reactive, no scleral icterus Neck: Other: Left thyroid enlargement, large neck circumference Resp: Other: Clear to auscultation bilaterally, no increased work of breathing Cardio: Rate: tachycardic Other: Irregularly irregular, regular rate, 2+ bilateral radial pedal pulses GI: GI Palp: Yes Soft to palpation Other: Obese, soft, nontender, normoactive bowel sounds : Other: Alfonso catheter in place, turbid yellow to brown urine in the Alfonso catheter bag Skin: Other: [place] wrapped around the dorsum of the left hand and the dorsum of the right arm, no diabetic foot wounds, normal cap refill Neuro: Speech: normal speech Other: Alert oriented to person, place, month, name of the current president confused as to the years states the years 1994 and that he quit smoking in 2026, speech is clear fluent in the patient carries a conversation but is overall poor historian, he has some asymmetric strength and partner marketing intern strength but reports that he had a prior CVA but he cannot remember when he had this or his residual deficits, no tremor, intact sensation Extrem: Other: 4/5 partner marketing intern strength on the left 5/5 partner marketing intern strength on the right patient is right handed, no clubbing, cyanosis or edema, moves all extremities equally Psych: Other: Pleasant and cooperative but intermittently confused, easily reoriented Objective Data Vital Signs Vital Signs: Vital Signs - 24 hr 10/12/25 11:02 10/12/25 12:29 10/12/25 14:11 Temperature 93.6 F L 94.5 F L 96.3 F L Pulse Rate 104 H 98 85 Respiratory Rate 19 18 16 Blood Pressure 167/94 H 167/87 H 156/72 H Pulse Oximetry 95 93 95 Oxygen Delivery Room Air 10/12/25 15:40 10/12/25 16:40 10/12/25 19:42 Temperature 97.5 F L 98 F 98.3 F Pulse Rate 85 106 H 107 H Respiratory Rate 16 19 28 H Blood Pressure 134/62 126/80 115/81 Pulse Oximetry 98 98 98 Oxygen Delivery 10/12/25 20:00 10/13/25 00:00 10/13/25 04:00 Temperature 97.8 F 97.8 F 97.9 F Pulse Rate 57 L 57 L 108 H Respiratory Rate 18 18 18 Blood Pressure 124/60 124/60 130/74 Pulse Oximetry 100 100 98 Oxygen Delivery 10/13/25 06:00 10/13/25 08:33 Temperature 97.9 F Pulse Rate 108 H 132 H Respiratory Rate 18 Blood Pressure 130/74 Pulse Oximetry 98 Oxygen Delivery Intake/Output Intake/Output: Intake & Output 10/10/25 10/11/25 10/12/25 10/13/25 23:59 23:59 23:59 23:59 Intake Total 1250 1193.3 Output Total 1200 1950 Balance 50 -756.7 Meds/Results Medications: Active Medications Generic Name Dose Route Start Last Admin Trade Name Freq PRN Reason Stop Dose Admin Acetaminophen 650 mg 10/12/25 16:29 Acetaminophen 325 Mg Tablet PO Q4H PRN Mild Pain (1-3) or Fever Apixaban 5 mg 10/13/25 09:00 10/13/25 08:33 Apixaban 5 Mg Tablet PO 5 mg Q12HR MELIA Administration Calcium Carbonate 200 mg 10/12/25 22:39 Calcium Carbonate (Tums) 500 Mg (200 Mg Elemental) PO Q6H PRN Indigestion Carvedilol 6.25 mg 10/13/25 09:00 10/13/25 08:33 Carvedilol 6.25 Mg Tablet PO 6.25 mg Q12HR MELIA Administration Dextrose 12.5 gm 10/12/25 22:37 Dextrose 50% 25 Gm/50 Ml Syringe IV PUSH PRN PRN Hypoglycemia Protocol Furosemide 40 mg 10/13/25 09:00 10/13/25 08:33 Furosemide 40 Mg Tablet PO 40 mg DAILY MELIA Administration Glucagon 1 mg 10/12/25 22:37 Glucagon For Inj 1 Mg Vial IM PRN PRN Hypoglycemia Protocol Glucose 15 gm 10/12/25 22:37 Glucose Oral Gel 15 Gm Of Glucse In 37.5 Gm Tube PO PRN PRN Hypoglycemia Protocol Dextrose 1,000 mls @ 100 mls/hr 10/12/25 22:37 Dextrose 5% 1,000 Ml IVPB PRN PRN Hypoglycemia Protocol Ampicillin Sodium/Sulbactam 100 mls @ 200 mls/hr 10/13/25 00:00 10/13/25 05:03 Sodium 3 gm/ Sodium Chloride IVPB 200 mls/hr Q6H MELIA Administration Sodium Chloride 1,000 mls @ 100 mls/hr 10/13/25 08:30 Normal Saline Iv IV CONT 10/13/25 18:29 .Q10H ONE Insulin Aspart 3 - 6 units 10/13/25 08:00 10/13/25 08:34 Insulin Aspart (*Bkc) 100 Units/Ml SUB-Q Not Given TIDWM [facility] Protocol Insulin Glargine 10 units 10/13/25 21:00 Insulin Glargine (*Bkc) 100 Units/Ml SUB-Q HS [facility] Miscellaneous Information 1 each 10/12/25 00:01 Dofetilide 125 Mcg Capsule Is Nonform, Can Pt Bring From Home? XX 11/11/25 00:00 CLARIFY [facility] Miscellaneous Information 1 each 10/12/25 00:01 Please Enter Patient Height And Weight For Medication Dosing XX 11/11/25 00:00 CLARIFY [facility] Non-Formulary Medication 125 mcg 10/13/25 09:00 Dofetilide PO 11/12/25 08:59 DAILY MELIA Sacubitril/Valsartan 1 tab 10/13/25 09:00 10/13/25 08:33 Sacubitril/Valsartan 24-26 Mg Tablet PO 1 tab Q12HR MELIA Administration Tamsulosin HCl 0.4 mg 10/13/25 09:00 10/13/25 08:33 Tamsulosin Hcl 0.4 Mg Capsule PO 0.4 mg QAM MELIA Administration Radiology Results: ITS Impressions Cervical Spine CT 10/12/25 11:42 IMPRESSION: HEAD: 1. No acute intracranial findings. C-SPINE: 1. No acute fracture. Head CT 10/12/25 11:42 IMPRESSION: HEAD: 1. No acute intracranial findings. C-SPINE: 1. No acute fracture. Chest X-Ray 10/12/25 12:05 IMPRESSION: 1. No definite acute cardiopulmonary findings given portable technique. Chest/Abdomen/Pelvis CT 10/12/25 15:22 IMPRESSION: 1. Cardiomegaly with postoperative changes of coronary bypass. Mild congestion of lung bases with minimal bilateral pleural effusion. Small patchy airspace opacity of left lower lobe noted. Possible patchy of pneumonia versus pulmonary edema. 2. Below the diaphragm, no definite acute findings in the abdomen and pelvis. Other findings as mentioned above including severe calcific changes of abdominal aorta, iliac arteries and superior mesenteric and renal arteries. Labs Labs: Laboratory Results - last 24 hr 10/12/25 10/12/25 10/12/25 11:00 11:27 12:25 WBC 14.2 H RBC 4.96 Hgb 15.7 Hct 46.7 MCV 94.2 MCH 31.7 MCHC 33.6 RDW 12.3 Plt Count 268 MPV 10.3 Immature Gran % (Auto) 0.4 Neut % (Auto) 90.0 H Lymph % (Auto) 5.1 L [place] % (Auto) 4.4 Eos % (Auto) 0.0 Baso % (Auto) 0.1 L Lymph # (Auto) 0.73 L [place] # (Auto) 0.6 Eos # (Auto) 0.0 Baso # (Auto) 0.0 Abs Immat Gran (auto) 0.06 H Absolute Neuts (auto) 12.8 H Absolute Nucleated RBC 0.000 Total Counted Neutrophils % (Manual) Band Neutrophils % Lymphocytes % (Manual) Monocytes % (Manual) Eosinophils % (Manual) Basophils % (Manual) Nucleated RBC % 0.0 Abs Neuts (Manual) Abs Lymphs (Manual) Abs Monocytes (Manual) Absolute Eos (Manual) Abs Basophils (Manual) Platelet Estimate Schistocytes PT 14.1 INR 1.1 APTT 31.3 Puncture Site ABG pH ABG pCO2 ABG pO2 ABG PO2/FiO2 Ratio ABG HCO3 ABG O2 Saturation ABG O2 Content ABG Base Excess A-a Gradient Oxyhemoglobin Total Hemoglobin O2 Delivery Device O2 Liters/Min FiO2 Sodium 136 L Potassium 4.7 Chloride 97 L Carbon Dioxide 21 L Anion Gap 18 H BUN 30 H Creatinine 0.94 Estim Creat Clear Calc Not Reportable Estimated GFR > 60 Glucose 102 POC Capillary Glucose 96 Hemoglobin A1c Lactic Acid 2.7 H Calcium 9.3 Phosphorus Magnesium 1.3 L Total Bilirubin 0.7 AST 59 ALT 34 Alkaline Phosphatase 28 L Ammonia Total Creatine Kinase C-Reactive Protein < 0.5 Total Protein 7.8 Albumin 4.7 Vitamin B12 Folate TSH (Reflex) Urine Color Yellow Urine Appearance Clear Urine pH 5.0 Ur Specific [place] 1.014 Urine Protein 2+ H Urine Glucose (UA) Negative Urine Ketones 1+ H Ur Blood (Man) Trace Urine Nitrate Negative Urine Bilirubin Negative Urine Urobilinogen 0.2 Add Ur Microanalysis Reviewed Leukocyte Esterase Rfl Negative Urine RBC 0-2 Urine WBC 0-5 Ur Squamous Epith Cells None seen Urine Bacteria None seen Urine Casts 6-10 Hyaline Casts Present Urine Opiates Screen Negative Urine Methadone Screen Negative Ur Barbiturates Screen Negative Ur Phencyclidine Scrn Negative Ur Amphetamine Screen Negative U Benzodiazepines Scrn Negative Urine Cocaine Screen Negative U Cannabinoids Screen Negative Ethyl Alcohol < 10 Influenza A (RT-PCR) Influenza B (RT-PCR) RSV (RT-PCR) SARS-CoV-2 RNA (RT-PCR) 10/12/25 10/12/25 10/12/25 12:33 13:40 14:42 WBC RBC Hgb Hct MCV MCH MCHC RDW Plt Count MPV Immature Gran % (Auto) Neut % (Auto) Lymph % (Auto) [place] % (Auto) Eos % (Auto) Baso % (Auto) Lymph # (Auto) [place] # (Auto) Eos # (Auto) Baso # (Auto) Abs Immat Gran (auto) Absolute Neuts (auto) Absolute Nucleated RBC Total Counted Neutrophils % (Manual) Band Neutrophils % Lymphocytes % (Manual) Monocytes % (Manual) Eosinophils % (Manual) Basophils % (Manual) Nucleated RBC % Abs Neuts (Manual) Abs Lymphs (Manual) Abs Monocytes (Manual) Absolute Eos (Manual) Abs Basophils (Manual) Platelet Estimate Schistocytes PT INR APTT Puncture Site Left radial ABG pH 7.346 L ABG pCO2 29.0 L ABG pO2 90.5 ABG PO2/FiO2 Ratio 4.31 ABG HCO3 15.5 L ABG O2 Saturation 96.7 ABG O2 Content 19.5 ABG Base Excess -8.6 A-a Gradient 24.5 Oxyhemoglobin 95.4 Total Hemoglobin 14.5 O2 Delivery Device Room air O2 Liters/Min 0.0 FiO2 21 Sodium Potassium Chloride Carbon Dioxide Anion Gap BUN Creatinine Estim Creat Clear Calc Estimated GFR Glucose POC Capillary Glucose 116 H Hemoglobin A1c Lactic Acid Calcium Phosphorus Magnesium Total Bilirubin AST ALT Alkaline Phosphatase Ammonia < 9 L Total Creatine Kinase C-Reactive Protein Total Protein Albumin Vitamin B12 Folate TSH (Reflex) Urine Color Urine Appearance Urine pH Ur Specific [place] Urine Protein Urine Glucose (UA) Urine Ketones Ur Blood (Man) Urine Nitrate Urine Bilirubin Urine Urobilinogen Add Ur Microanalysis Leukocyte Esterase Rfl Urine RBC Urine WBC Ur Squamous Epith Cells Urine Bacteria Urine Casts Hyaline Casts Urine Opiates Screen Urine Methadone Screen Ur Barbiturates Screen Ur Phencyclidine Scrn Ur Amphetamine Screen U Benzodiazepines Scrn Urine Cocaine Screen U Cannabinoids Screen Ethyl Alcohol Influenza A (RT-PCR) Influenza B (RT-PCR) RSV (RT-PCR) SARS-CoV-2 RNA (RT-PCR) 10/12/25 10/12/25 10/12/25 16:46 18:47 21:05 WBC RBC Hgb Hct MCV MCH MCHC RDW Plt Count MPV Immature Gran % (Auto) Neut % (Auto) Lymph % (Auto) [place] % (Auto) Eos % (Auto) Baso % (Auto) Lymph # (Auto) [place] # (Auto) Eos # (Auto) Baso # (Auto) Abs Immat Gran (auto) Absolute Neuts (auto) Absolute Nucleated RBC Total Counted Neutrophils % (Manual) Band Neutrophils % Lymphocytes % (Manual) Monocytes % (Manual) Eosinophils % (Manual) Basophils % (Manual) Nucleated RBC % Abs Neuts (Manual) Abs Lymphs (Manual) Abs Monocytes (Manual) Absolute Eos (Manual) Abs Basophils (Manual) Platelet Estimate Schistocytes PT INR APTT Puncture Site ABG pH ABG pCO2 ABG pO2 ABG PO2/FiO2 Ratio ABG HCO3 ABG O2 Saturation ABG O2 Content ABG Base Excess A-a Gradient Oxyhemoglobin Total Hemoglobin O2 Delivery Device O2 Liters/Min FiO2 Sodium Potassium Chloride Carbon Dioxide Anion Gap BUN Creatinine Estim Creat Clear Calc Estimated GFR Glucose POC Capillary Glucose 115 H 99 Hemoglobin A1c Lactic Acid 1.2 Calcium Phosphorus Magnesium Total Bilirubin AST ALT Alkaline Phosphatase Ammonia Total Creatine Kinase C-Reactive Protein Total Protein Albumin Vitamin B12 Folate TSH (Reflex) Urine Color Urine Appearance Urine pH Ur Specific [place] Urine Protein Urine Glucose (UA) Urine Ketones Ur Blood (Man) Urine Nitrate Urine Bilirubin Urine Urobilinogen Add Ur Microanalysis Leukocyte Esterase Rfl Urine RBC Urine WBC Ur Squamous Epith Cells Urine Bacteria Urine Casts Hyaline Casts Urine Opiates Screen Urine Methadone Screen Ur Barbiturates Screen Ur Phencyclidine Scrn Ur Amphetamine Screen U Benzodiazepines Scrn Urine Cocaine Screen U Cannabinoids Screen Ethyl Alcohol Influenza A (RT-PCR) Negative Influenza B (RT-PCR) Negative RSV (RT-PCR) Negative SARS-CoV-2 RNA (RT-PCR) Negative 10/13/25 10/13/25 10/13/25 06:14 06:58 07:42 WBC 16.0 H RBC 3.98 L Hgb 12.7 L D Hct 36.5 L MCV 91.7 MCH 31.9 MCHC 34.8 RDW 12.8 Plt Count 216 MPV 10.1 Immature Gran % (Auto) Not Reportable Neut % (Auto) Not Reportable Lymph % (Auto) Not Reportable [place] % (Auto) Not Reportable Eos % (Auto) Not Reportable Baso % (Auto) Not Reportable Lymph # (Auto) Not Reportable [place] # (Auto) Not Reportable Eos # (Auto) Not Reportable Baso # (Auto) Not Reportable Abs Immat Gran (auto) Not Reportable Absolute Neuts (auto) Not Reportable Absolute Nucleated RBC Not Reportable Total Counted 100 Neutrophils % (Manual) 83 H Band Neutrophils % 2 Lymphocytes % (Manual) 8 L Monocytes % (Manual) 7 Eosinophils % (Manual) 0 Basophils % (Manual) 0 Nucleated RBC % Not Reportable Abs Neuts (Manual) 13.60 H Abs Lymphs (Manual) 1.28 Abs Monocytes (Manual) 1.12 H Absolute Eos (Manual) 0.00 L Abs Basophils (Manual) 0.00 Platelet Estimate Adequate Schistocytes None seen PT INR APTT Puncture Site ABG pH ABG pCO2 ABG pO2 ABG PO2/FiO2 Ratio ABG HCO3 ABG O2 Saturation ABG O2 Content ABG Base Excess A-a Gradient Oxyhemoglobin Total Hemoglobin O2 Delivery Device O2 Liters/Min FiO2 Sodium 136 L Potassium 4.7 Chloride 104 Carbon Dioxide 21 L Anion Gap 11 BUN 25 H Creatinine 1.03 Estim Creat Clear Calc 49 Estimated GFR > 60 Glucose 56 L* POC Capillary Glucose 57 L* 135 H Hemoglobin A1c 8.3 H Lactic Acid Calcium 8.6 Phosphorus 4.3 Magnesium 1.9 Total Bilirubin AST ALT Alkaline Phosphatase Ammonia Total Creatine Kinase 520 H C-Reactive Protein Total Protein Albumin Vitamin B12 745.0 Folate > 20.0 H TSH (Reflex) 1.250 Urine Color Urine Appearance Urine pH Ur Specific [place] Urine Protein Urine Glucose (UA) Urine Ketones Ur Blood (Man) Urine Nitrate Urine Bilirubin Urine Urobilinogen Add Ur Microanalysis Leukocyte Esterase Rfl Urine RBC Urine WBC Ur Squamous Epith Cells Urine Bacteria Urine Casts Hyaline Casts Urine Opiates Screen Urine Methadone Screen Ur Barbiturates Screen Ur Phencyclidine Scrn Ur Amphetamine Screen U Benzodiazepines Scrn Urine Cocaine Screen U Cannabinoids Screen Ethyl Alcohol Influenza A (RT-PCR) Influenza B (RT-PCR) RSV (RT-PCR) SARS-CoV-2 RNA (RT-PCR) Quality VTE Prophylaxis VTE prophylaxis: pharmacologic ordered (Resume home Eliquis.)
[2025-10-13] MEDS: SODIUM CHLORIDE 0.9% IV 1,000 ML 100 ML IV CONT (09:40)
[2025-10-13] MEDS: INSULIN ASPART (*BKC) 100 UNITS/ML SUB-Q (16:58)
--- NOTE | 2025-10-13 18:00 | PC.NURSE ---
Pt refusing to wear dredge hand.
--- NOTE | 2025-10-13 18:19 | PC.NURSE ---
Patient refusing to keep telemetry on. Swinging it around attempting to hit staff.
[2025-10-13] MEDS: INSULIN GLARGINE (*BKC) 100 UNITS/ML 10 UNITS SUB-Q (21:55)
--- NOTE | 2025-10-13 22:00 | PC.NURSE ---
Patient POC reading 357, Dr. Howard notified hyperglycemic result. Orders given to administer scheduled Lantus 10 units, recheck POC at midnight notify her if POC still robert 350. Patient is stable denies headache, blurred vision or fatigue. stable. Call light with personal belongings within reach, bed lowest position, fall precaution bed alarm activated. Will continue to monitor progress.
[2025-10-14] VITALS (8 sets, daily range): BP systolic 106–147; BP diastolic 58–85; PULSE 79–102; RESP 15–18; TEMP 36.2–36.3; O2SAT 96–98
[2025-10-14] MEDS: AMPICILLIN SODIUM/SULBACTAM 3 GM in SODIUM CHLORIDE 0.9% IV 100 ML 200 ML IVPB ×3 (00:13→13:17)
--- NOTE | 2025-10-14 06:21 | PC.NURSE ---
Patient repeat midnight POC reading 257, did not have to notify Dr. Howard with results. No intervention needed at this time. Will continue to monitor patient.
[2025-10-14 07:07] LABS: Hematocrit 35.5 % (42.0-52.0); Hemoglobin 11.8 g/dL (14.0-18.0); Mean Corpuscular HGB Conc 33.2 g/dl (32-36); Mean Corpuscular Hemoglobin 31.4 pg (26-34); Mean Corpuscular Volume 94.4 fl (80-100); Platelet Count Result 179 k/mm3 (150-375); Red Blood Count 3.76 M/mm3 (4.6-6.20); White Blood Count 9.4 K/mm3 (4.5-10.0)
[2025-10-14 07:34] LABS: Anion Gap 7 mmol/L (4-12); Blood Urea Nitrogen 18 mg/dL (9-20); Calcium 8.1 mg/dL (8.4-10.2); Carbon Dioxide 24 mmol/L (22-30); Chloride 107 mmol/L (98-107); Estimated CRCL calculation 52 ml/min; Estimated Glomerular Filt Rate > 60; Glucose 145 mg/dL (65-110); Potassium 3.9 mmol/L (3.4-5.0); Sodium 138 mmol/L (137-145)
[2025-10-14] MEDS: FUROSEMIDE 40 MG TABLET PO (08:42)
[2025-10-14] MEDS: SACUBITRIL/VALSARTAN 24-26 MG TABLET 1 TAB PO (08:43)
[2025-10-14] MEDS: APIXABAN 5 MG TABLET PO (08:44)
[2025-10-14] MEDS: TAMSULOSIN HCL 0.4 MG CAPSULE PO (08:44)
--- NOTE | 2025-10-14 13:43 | P.DS_ITS ---
DS: Admitting Diagnosis Discharge Date 10/14 Admitting Diagnosis ams, pneumonia DS: Discharge Diagnosis Discharge Diagnosis (1) Left lower lobe pneumonia: Qualifiers: Aspiration pneumonia type: unspecified Pneumonia type: aspiration pneumonia Qualified Code(s): J69.0 - Pneumonitis due to inhalation of food and vomit Code(s): J18.9 - Pneumonia, unspecified organism Status: Acute (2) Hypothermia: Qualifiers: Encounter type: sequela Qualified Code(s): T68.XXXS - Hypothermia, sequela Code(s): T68.XXXA - Hypothermia, initial encounter Status: Acute (3) Insulin dependent diabetes mellitus: Status: Acute (4) Hypomagnesemia: Code(s): E83.42 - Hypomagnesemia Status: Acute (5) Chronic anticoagulation: Code(s): 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 Status: Acute (6) Chronic atrial fibrillation: Code(s): I48.20 - Chronic atrial fibrillation, unspecified Status: Acute (7) SIRS (systemic inflammatory response syndrome): Code(s): R65.10 - Systemic inflammatory response syndrome (SIRS) of non-infectious origin without acute organ dysfunction Status: Acute (8) Alcohol intoxication: Qualifiers: Complication of substance-induced condition: uncomplicated Qualified Code(s): F10.920 - Alcohol use, unspecified with intoxication, uncomplicated Code(s): F10.929 - Alcohol use, unspecified with intoxication, unspecified Status: Acute (9) BPH with urinary obstruction: Code(s): N40.1 - Benign prostatic hyperplasia with lower urinary tract symptoms; N13.8 - Other obstructive and reflux uropathy Status: Acute DS: Summary Hospital Course Hospital Course: The patient presented to the emergency department with altered mental status in the setting of acute alcohol intoxication. During the intoxication period, the patient is believed to have aspirated, resulting in aspiration pneumonia. Additionally, the patient was found lying on the floor and sustained cold exposure leading to hypothermia. On presentation, the patient met systemic inflammatory response syndrome (SIRS) criteria with documented hypothermia, tachycardia, tachypnea, leukocytosis, and lactic acidosis. The patient was initially started on empiric broad-spectrum antibiotic therapy with Levaquin and Zosyn in the emergency department. However, due to QT prolongation noted on electrocardiogram, Levaquin was discontinued and antiemetics were avoided. Given that pseudomonal coverage was not indicated for aspiration pneumonia, antibiotics were changed to Unasyn and subsequently downgraded to Augmentin, with seven additional doses required at time of discharge. Blood cultures obtained in the emergency department returned preliminarily negative. Given the patient's history of systolic congestive heart failure, fluid resuscitation was conservative with only one liter bolus administered in the emergency department, followed by maintenance intravenous fluids at 125 mL per hour which were subsequently discontinued. The patient was encouraged to maintain oral fluid intake as encephalopathy resolved. The altered mental status was attributed to the combination of alcohol intoxication, hypothermia, and underlying infection, all of which improved with treatment. The patient's significant other reported baseline mild cognitive impairment with the patient typically being alert and oriented times three to four with occasional confusion, and outpatient neurocognitive testing was recommended if not previously completed. The patient's home cardiac medications including Coreg, Entresto, and diuretic therapy were resumed. Laboratory evaluation for vitamin B12 and folic acid was performed given the confusion and suspected unsteady gait, as the patient may have underlying diabetic neuropathy or vitamin deficiency-related neuropathy. Physical examination revealed significant bruising to the tongue consistent with a bite injury. The etiology remains unclear as this could have occurred during the fall or potentially during a seizure. While the patient has a history of prior cerebrovascular accident which could lower seizure threshold, alcohol typically exerts a sedative effect that would decrease seizure risk. The working assessment favored a mechanical fall with head strike or syncope related to alcohol use. Continuous cardiac telemetry monitoring and neurological checks every four hours were maintained throughout the hospitalization. The patient also developed urinary retention without prior diagnosis of benign prostatic hyperplasia, though symptoms were consistent with BPH. Flomax was initiated. Regarding the patient's insulin-dependent diabetes mellitus, blood glucose was at the lower end of normal range on emergency department arrival, raising concern for possible hypoglycemia during the unconscious and intoxicated state. The patient was placed on a consistent carbohydrate diet, and Tresiba was reduced from the home dose to 16 units nightly, then further decreased to 10 units at bedtime following a hypoglycemic episode with blood glucose of 59 mg/dL that responded to treatment and increased to 135 mg/dL. Moderate-dose sliding scale insulin was implemented with glucose monitoring before meals, at bedtime, and as needed for hypoglycemia. Home Farxiga and metformin were held during hospitalization. Tresiba home dose will be decreased to 20 units from 24 and pt was instructed to check bs in am and keep log. Creatine kinase was elevated at 520, and intravenous fluids were continued for rhabdomyolysis management. The patient was placed on fall precautions and admitted under observation status. With resolution of tachycardia, lactic acidosis, tachypnea, and mental status changes, along with improvement in clinical condition, the patient was deemed alert, stable, and ready for discharge with appropriate outpatient follow-up recommendations. Pt was on IV unasyn fpr pneumonia and downgraded to augmentin today with rx sent for 7 more doses- next one 10/14 0800 pm. Status at Discharge Functional status at discharge: independent ambulation Overall status at discharge: patient is progressing back to baseline Time Spent with Patient Time attestation: Total time spent providing and/or coordinating discharge services: Time spent: Greater than 30 minutes Exam Const: General: comfortable HENMT: Other: Mucous membranes are dry, large hematomas to the lateral edges of the tongue bilaterally, no oral pharyngeal erythema, fair dentition Eyes: Other: Pupils are equal and reactive, no scleral icterus Neck: Other: Left thyroid enlargement, large neck circumference Resp: Other: Clear to auscultation bilaterally, no increased work of breathing Cardio: Rate: regular rate Rhythm: regular rhythm GI: GI Palp: Yes Soft to palpation Other: Obese, soft, nontender, normoactive bowel sounds Skin: Other: [place] wrapped around the dorsum of the left hand and the dorsum of the right arm, no diabetic foot wounds, normal cap refill Neuro: Speech: normal speech Other: Alert oriented to person, place, month, name of the current president confused as to the years states the years 1994 and that he quit smoking in 2026, speech is clear fluent in the patient carries a conversation but is overall poor historian, 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 but reports that he had a prior CVA but he cannot remember when he had this or his residual defic its, no tremor, intact sensation Extrem: Other: 4/5 asbestos 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 on the left 5/5 asbestos wire finisher s trength on the right patient is right handed, no clubbing, cyanosis or edema, moves all extremities equally Psych: Other: Pleasant and cooperative DS: Data Data Completed and Pending Labs on day of discharge: Labs from last 24 hours 10/14/25 10/14/25 10/14/25 11:28 07:54 06:14 WBC 9.4 RBC 3.76 L Hgb 11.8 L Hct 35.5 L MCV 94.4 MCH 31.4 MCHC 33.2 RDW 13.2 Plt Count 179 MPV 11.3 H Sodium 138 Potassium 3.9 Chloride 107 Carbon Dioxide 24 Anion Gap 7 BUN 18 Creatinine 0.98 Estim Creat Clear Calc 52 Estimated GFR > 60 Glucose 145 H POC Capillary Glucose 193 H 133 H Calcium 8.1 L 10/14/25 10/13/25 10/13/25 00:25 19:56 16:42 WBC RBC Hgb Hct MCV MCH MCHC RDW Plt Count MPV Sodium Potassium Chloride Carbon Dioxide Anion Gap BUN Creatinine Estim Creat Clear Calc Estimated GFR Glucose POC Capillary Glucose 237 H 357 H 243 H Calcium Preliminary micro results at discharge 10/12/25 11:27 Blood Culture - Preliminary Blood 10/12/25 12:26 Blood Culture - Preliminary Blood Discharge Plan Discharge Attending physician on discharge: Wilberto Merino Discharging Clinician: Cathy Heard Patient Disposition: Home Activity: february shower Diet: heart healthy Discharge Instructions: You were admitted to the hospital because you passed out after drinking alcohol and developed pneumonia from breathing in stomach contents while unconscious. You also became very cold from lying on the floor, which caused your body temperature to drop dangerously low and led to an infection. We treated you with intravenous fluids and antibiotics, and your condition has improved s ignificantly. You need to finish taking the antibiotic Augmentin as prescribed?seven more doses starting tonight at 8:00 PM. Continue taking your regular heart medications including Coreg, Entresto, and your diuretic, as well as Flomax for urinary problems. Check your blood sugar before each meal and at bedtime, and eat regular meals with consistent carbohydrates.Your blood sugar here was on a low side couple o times, so i will decrease our tresiba dose from 24 units to 20 units. Please check it in am- your goal -80-130. If your blood sugar consistently low (around 70 and/or lower than 80- please let your PCP know right away) If your blood sugar higher then 130, please do the same- let your PCP know for further recommendations. Drink plenty of water but avoid alcohol completely. Follow up with your primary care doctor within three to five days. Return to the emergency department immediately if you experience confusion, difficulty breathing, chest pain, fever above 100.4?F, inability to urinate, or blood sugar below 70 despite treatment. Patient Instructions: Antibiotic Form Patient Language: Thai Stand Alone Forms: General Discharge Information Follow-up/Referrals: Noemi,Chetan Turner MD [Primary Care Provider] - 2 Weeks Discharge Medications: New amoxicillin-pot clavulanate 875-125 mg tablet 1 tablet PO Q12H Qty: 7 0RF Continued Eliquis 5 mg tablet 5 mg PO BID atorvastatin 40 mg tablet 40 mg PO QPM carvedilol 6.25 mg tablet 6.25 mg PO BID dofetilide 125 mcg capsule 125 mcg PO DAILY Patient Comments: two tabs daily metformin 1,000 mg tablet 1,000 mg PO BID furosemide 40 mg tablet 40 mg PO DAILY dapagliflozin propanediol [Farxiga] 10 mg tablet 10 mg PO DAILY sacubitril-valsartan 24-26 mg tablet 1 tablet PO BID Changed insulin degludec [Tresiba U-100 Insulin] 100 unit/mL solution 20 unit subcut HS Qty: 10 0RF Date of admission: 10/12/25 16:29 Primary Care Provider: MihaiChetan Admitting Provider: Billy Rodrigez Attending physician on admission: Billy Rodrigez Condition: Improved Quality VTE Prophylaxis VTE prophylaxis: pharmacologic ordered (Resume home Eliquis.)
== END 2025-10-14 15:27 | disposition home or self-care (01) ==
LOC: ANHED 16:29 → ANH3MEDSUR 10-13 04:04
PROVIDERS: Internal Medicine; Nurse Practitioner; Student in an Organized Health Care Education/Training Program; Admitting Provider Internal Medicine; Emergency Provider Emergency Medicine; PCP Internal Medicine; Visit Provider Internal Medicine
DX: J69.0 Pneumonitis due to inhalation of food and vomit (principal); T68.XXXA Hypothermia, initial encounter; R41.3 Other amnesia; S00.532A Contusion of oral cavity, initial encounter; E83.42 Hypomagnesemia; R65.10 Systemic inflammatory response syndrome (SIRS) of non-infectious origin without acute organ dysfunction; F10.929 Alcohol use, unspecified with intoxication, unspecified; N40.1 Benign prostatic hyperplasia with lower urinary tract symptoms; N13.8 Other obstructive and reflux uropathy; I25.10 Atherosclerotic heart disease of native coronary artery without angina pectoris; I48.20 Chronic atrial fibrillation, unspecified; I45.2 Bifascicular block; E11.9 Type 2 diabetes mellitus without complications; I10 Essential (primary) hypertension; Z79.4 Long term (current) use of insulin; Z79.84 Long term (current) use of oral hypoglycemic drugs; Z79.01 Long term (current) use of anticoagulants; Z87.891 Personal history of nicotine dependence; Z86.73 Personal history of transient ischemic attack (TIA), and cerebral infarction without residual deficits; Z95.1 Presence of aortocoronary bypass graft
CPT/HCPCS: 36415; 36600; 70450; 71045; 71260; 72125; 74177; 80048; 80053; 80307; 81001; 82077; 82140; 82550; 82607; 82746; 82805; 82948; 83036; 83605; 83735; 84100; 84443; 85018; 85025; 85027; 85610; 85730; 86140; 87040; 87449; 87637; 87899; 93005; 96361; 96365; 96367; 96376; 97161; 97165; 99285; A9270; G0378; J0295; J1815; J1956; J2543; J3475; J7030; Q9967